=== PATIENT | female | born 1960 | race African-American/Black ===

== ENCOUNTER 2016-06-10 14:53 | Emergency (ER) | payer OTHER, MEDICARE ==
[~2016-06-10] VITALS: Ht 152.4 cm; Wt 100.0 kg
[~2016-06-10 14:53] MED LIST: ALBU2.5V5 NEB; ALPR0.5T6 PO; AMIO200T2 PO; AMLO10TA2 PO; ASPI325T4 PO; ASPI81TA44 PO; ATOR20TA PO; ATOR40TA59 PO; Aspirin PO; BUME2TAB PO; BUSP5TAB PO; CARV12.52 PO; CARV25TA2 PO; CELE200C PO; CLOP75TA PO; CLOP75TA27 PO; CYCL10TA2 PO; DIAZEPAM10 MG PO; DIGO125T PO; DILT120C97 PO; DILT180C90 PO; Doxycycline Hyclate PO; FLUT12AE IH; FLUT1DIS3 INH; FURO-68 PO; FURO40TA4 PO; FURO80TA3 PO; GABA-585 PO; HYDR-2163 PO; HYDR-2666 PO; HYDR-2672 PO; HYDR-2762 PO; HYDR-971 PO; HYDR25CA PO; INSU100C4 SQ; INSU100I13 SQ; INSU100I17; INSU100I17 SQ; INSU100I27 SQ; INSU100V8 SQ; IPRA3AMP NEB; Ibuprofen PO; LEVO500T38 PO; LISI40TA PO; MELO-150 PO; METO10TA81 PO; MUPI15CR TP; ONDA-35 PO; ONDA4TAB10 SL; ONDA4TAB7 PO; ONDA8TAB9 PO; PANT40TA3 PO; PARO20TA2 PO; PARO20TA55 PO; POTA20PA8 PO; POTA20TA4 PO; POTA20TA84 PO; PRED-220 PO; PRED20TA PO; PRED5TAB PO; PROM118S2 PO; Promethazine Hcl/Codeine PO; RAMI10CA PO; RIVA10TA PO; SODI45SP4 NS; SPIR25TA3 PO; TORS20TA PO; TORS20TA2 PO; VALIUM10 MG PO; VENTOLIN HFA18 GM IH; gabapentin PO
[2016-06-10] MEDS ORDERED: IPRATRPIUM/ALBUTEROL 0.5/2.5MG 3 ML NEBU. NEB ONE (15:30)
[2016-06-10 16:06] LABS: BASO # 0.1 x10^3/uL (0.0-0.2); BASO % 1 % (0-3); EOS % 0 % (0-3); HEMATOCRIT 38.7 % (36.0-47.0); HEMOGLOBIN 11.9 g/dL (12.0-15.5); LYMPH # 2.2 x10^3/uL (1.0-4.8); LYMPH % 24 % (24-48); MEAN CORPUSCULAR HEMOGLOBIN 23 pg (25-35); MEAN CORPUSCULAR HGB CONC 31 g/dL (31-37); MEAN CORPUSCULAR VOLUME 76 fL (79-100); MONO % 8 % (0-9); NEUT % 67 % (31-73); PLATELET COUNT 310 x10^3/uL (140-400); RED BLOOD COUNT 5.07 x10^6/uL (3.50-5.40); RED CELL DISTRIBUTION WIDTH 21.3 % (11.5-14.5)
--- NOTE | 2016-06-10 16:06 | RAD ---
Portable chest, 06/10/2016: History: Shortness of breath, smoker, hypertension Comparison is made to a study from 06/06/2016. The heart is enlarged. There are moderate persistent opacities in the right lower chest. This appears to be predominantly due to pleural fluid with mild underlying streaky atelectasis/infiltrate. The pleural fluid component appears to have increased while the right parahilar parenchymal opacities have decreased. No left lung infiltrate or pleural fluid is seen. IMPRESSION: 1. Cardiomegaly. 2. Increasing moderate-sized right pleural effusion with mild underlying right basilar atelectasis/infiltrate.
[2016-06-10 16:15] LABS: CREATININE 0.9 mg/dL (0.6-1.0)
[2016-06-10 16:16] LABS: INR 1.2 (0.8-1.1); PROTHROMBIN TIME PATIENT 14.7 SEC (11.7-14.0)
[2016-06-10 16:21] LABS: ALBUMIN 2.8 g/dL (3.4-5.0); ALBUMIN/GLOBULIN RATIO 0.6 (1.0-1.7); TOTAL BILIRUBIN 0.8 mg/dL (0.2-1.0); TOTAL PROTEIN 7.5 g/dL (6.4-8.2)
[2016-06-10 16:26] LABS: PLT ESTIMATE ADEQUATE (ADEQUATE)
[2016-06-10 16:27] LABS: ANISOCYTOSIS MOD; MICROCYTOSIS SLIGHT; OVALOCYTES OCC; SCHISTOCYTES OCC
[2016-06-10 16:46] VITALS: BP 124/79
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
--- NOTE | 2016-06-11 10:51 | EKG ---
[facility] [address] [place] [address] Test Date: 2016-06-10 Test Time: 15:14:30 Pat Name: TRUDI RUEDA Department: Room: Gender: F Cracking Still Operator: : 1960 Requested By: SOCORRO MORENO Order Number: [id number] Reading MD: Radha Brizuela Measurements Intervals [place] Rate: 71 P: 36 AK: 134 QRS: -32 QRSD: 88 T: 102 QT: 398 QTc: 437 Interpretive Statements SINUS RHYTHM LEFT ATRIAL ABNORMALITY ABNORMAL LEFT AXIS DEVIATION LEFT ANTERIOR FASCICULAR BLOCK QRS(T) CONTOUR ABNORMALITY CONSIDER ANTEROSEPTAL MYOCARDIAL DAMAGE T ABNORMALITY IN HIGH LATERAL LEADS Electronically Signed On 06-13-2016 0:09:37 CONVENTIONS ASSISTANT by Radha Brizuela
== END 2016-06-10 16:56 | disposition home or self-care (01) ==
LOC: ER 14:53
DX: J44.9 Chronic obstructive pulmonary disease, unspecified (principal); R51 Headache; E11.9 Type 2 diabetes mellitus without complications; I25.10 Atherosclerotic heart disease of native coronary artery without angina pectoris; I50.9 Heart failure, unspecified; J45.909 Unspecified asthma, uncomplicated; I11.0 Hypertensive heart disease with heart failure; D86.9 Sarcoidosis, unspecified; F12.10 Cannabis abuse, uncomplicated; Z98.61 Coronary angioplasty status; Z88.8 Allergy status to other drugs, medicaments and biological substances
CPT/HCPCS: 36415; 71010; 80053; 83880; 84484; 85007; 85027; 85610; 93005; 94640; 99285; J7620

== ENCOUNTER 2016-06-12 07:24 | Emergency (ER) | payer OTHER, MEDICARE ==
[~2016-06-12] VITALS: Ht 152.4 cm; Wt 99.8 kg
[~2016-06-12 07:24] MED LIST changes: -LIDOCAINE 1% / SOD BICARB 8.4% 20 ML VIAL. IJ ONE
[2016-06-12] MEDS ORDERED: IPRATRPIUM/ALBUTEROL 0.5/2.5MG 3 ML NEBU. ONE (07:42)
[2016-06-12] MEDS ORDERED: NITROGLYCERIN SUBLINGUAL 0.4 MG BOTTLE OF 25. SL PRN (07:45)
[2016-06-12] MEDS ORDERED: FENTANYL PF 100 MCG/2 ML VIAL. IV PRN (07:45)
--- NOTE | 2016-06-12 07:46 | EKG ---
[address] [place] [address] Test Date: 2016-06-12 Test Time: 07:37:35 Pat Name: TRUDI RUEDA Department: Patient ID: [id number] Room: Gender: F Pooling Operator: ALLYSON ER : 1960 Requested By: KENDY CHERRY Order Number: [id number] Reading MD: Davion Lerma Measurements Intervals [place] Rate: 92 P: 40 RI: 134 QRS: -37 QRSD: 90 T: 128 QT: 362 QTc: 453 Interpretive Statements SINUS RHYTHM LEFT ATRIAL ABNORMALITY ABNORMAL LEFT AXIS DEVIATION QRS(T) CONTOUR ABNORMALITY CONSIDER ANTEROSEPTAL MYOCARDIAL DAMAGE CONSISTENT WITH INFERIOR INFARCT PROBABLY OLD T ABNORMALITY IN HIGH LATERAL LEADS ABNORMAL ECG Electronically Signed On 06-12-2016 14:17:30 SOURCING COORDINATOR by Davion Lerma
--- NOTE | 2016-06-12 07:51 | ED.ADGEN ---
Past Medical History Past Medical History: Asthma, CHF, COPD, Diabetes-Type II, Hypertension, Lung Disease, Other Additional Past Medical Histor: SARCOIDOSIS OF LUNG Past Surgical History: Angioplasty, , Hysterectomy, Tonsillectomy Additional Past Surgical Histo: bladder sling,cardiac cath Alcohol Use: None Drug Use: Marijuana Adult General Chief Complaint Chief Complaint: SHORTNESS OF BREATH HPI HPI Patient is a 56 year old woman, history of CHF, COPD, sarcoidosis, oxygen dependent on 2 L at baseline, CAD, type 2 diabetes mellitus, substance abuse, hypertension, who presents the emergency department with a complaint of right- sided chest pain and shortness of breath. Patient states that she was at home, seated on her bed, parity breakfast when she began experiencing right-sided chest pain located below her right breast, she describes it as a stabbing sensation, worse with deep inspiration and with motion. Denies any injuries, states that she has had similar to previously for which she has been evaluated at [facility]. Patient is well-known to ED staff from multiple previous visits for similar complaints. Her breast trimmer is Dr. Kidd. She states that she's been experiencing "cold" symptoms for the past several days, with rhinorrhea, nasal congestion, and noted that she had a small nosebleed this morning, patient wears oxygen that is not humidified all times. She denies any recent travel or surgery, states that she is experiencing increased swelling in her abdomen, and has a same amount of swelling in her lower extremities as usual and sister with her CHF. She denies any fevers or chills, any weakness numbness or tingling, any injuries, states that she had mild nausea earlier this morning, which is currently resolved. She states that she ate some eggs and toast this morning, no abdominal pain, no vomiting or diarrhea , eating did not change her symptoms. Review of Systems Review of Systems Constitutional: Denies fever or chills. [] Eyes: Denies change in visual acuity. [] HENT: Denies nasal congestion or sore throat. [] Respiratory: Denies cough or shortness of breath. [] Cardiovascular: Denies chest pain or edema. [] GI: Denies abdominal pain, nausea, vomiting, bloody stools or diarrhea. [] : Denies dysuria. [] Musculoskeletal: Denies back pain or joint pain. [] Integument: Denies rash. [] Neurologic: Denies headache, focal weakness or sensory changes. [] Endocrine: Denies polyuria or polydipsia. [] Lymphatic: Denies swollen glands. [] Psychiatric: Denies depression or anxiety. [] Current Medications Current Medications Current Medications Medications (Trade) Dose Ordered Sig/Carli Start Time Stop Time Status Last Admin Dose Admin Albuterol/ Ipratropium (Duoneb) 3 ml 1X ONCE 06/12/16 08:00 06/12/16 08:01 DC 06/12/16 07:52 3 ML Aspirin (Children'S Aspirin) 324 mg 1X ONCE 06/12/16 09:15 06/12/16 09:17 DC 06/12/16 09:29 324 MG Fentanyl Citrate (Fentanyl 2ml Vial) 25 mcg PRN Q15MIN PRN 06/12/16 07:45 06/12/16 11:16 DC 06/12/16 09:31 25 MCG Nitroglycerin (Nitrostat) 0.4 mg PRN Q5MIN PRN 06/12/16 07:45 06/12/16 11:16 DC 06/12/16 08:41 0.4 MG Allergies Allergies Allergies Coded Allergies Type Severity Reaction Last Updated Verified adhesive Allergy Intermediate rash 09/18/15 Yes metformin Allergy Intermediate rash 04/15/16 Yes Physical Exam Physical Exam Constitutional: Well developed, well nourished, no acute distress, non-toxic appearance. [] Nasal cannula in place, oxygen saturation is 97% on 2 L nasal cannula is patient's baseline. HENT: Normocephalic, atraumatic, bilateral external ears normal, oropharynx moist, no oral exudates, patient with dried blood noted at the left Rendon, no active bleeding identified, turbinates are mildly swollen with clear rhinorrhea. Linn cannula in place. Eyes: PERRLA, EOMI, conjunctiva normal, no discharge. [] Neck: Normal range of motion, no tenderness, supple, no stridor. [] Cardiovascular:Heart rate regular rhythm, no murmur, S1, S2, rubs or gallops. [] Lungs & Thorax: Diminished breath sounds bilaterally with mild scattered wheezing, no rhonchi or rales. Patient with reproduce will chest wall tenderness across the right side of her chest, anterior portion, and below the breast, no crepitus or bony point tenderness. [] Abdomen: Bowel sounds normal, soft, obese, with edema noted across the lower aspect of the stomach, no rebound, rigidity, no tenderness, no masses, no pulsatile masses. [] Skin: Warm, dry, no erythema, no rash. [] Back: No tenderness, no CVA tenderness. [] Extremities: No tenderness, no cyanosis, no clubbing, ROM intact, 1+ pitting edema bilaterally, with chronic muscle wasting noted, negative Homans sign. [] Neurologic: Alert and oriented X 3, normal motor function, normal sensory function, no focal deficits noted. [] Psychologic: Affect normal, judgement normal, mood normal. [] Current Patient Data Vital Signs Vital Signs Date Time Temp Pulse Resp B/P Pulse Ox O2 Delivery O2 Flow Rate FiO2 06/12/16 09:31 20 94 Nasal Cannula 2.0 06/12/16 08:41 92 129/65 06/12/16 07:46 97.6 97.6 Lab Values Laboratory Tests Test 06/12/16 07:58 06/12/16 08:02 06/12/16 08:35 White Blood Count 8.5x10^3/uL (4.0-11.0) Red Blood Count 5.08x10^6/uL (3.50-5.40) Hemoglobin 11.9g/dL (12.0-15.5) L Hematocrit 38.5% (36.0-47.0) Mean Corpuscular Volume 76fL (79-100) L Mean Corpuscular Hemoglobin 23pg (25-35) L Mean Corpuscular Hemoglobin Concent 31g/dL (31-37) Red Cell Distribution Width 21.2% (11.5-14.5) H Platelet Count 338x10^3/uL (140-400) Neutrophils (%) (Auto) 70% (31-73) Lymphocytes (%) (Auto) 20% (24-48) L Monocytes (%) (Auto) 9% (0-9) Eosinophils (%) (Auto) 0% (0-3) Basophils (%) (Auto) 1% (0-3) Neutrophils # (Auto) 5.9x10^3uL (1.8-7.7) Lymphocytes # (Auto) 1.7x10^3/uL (1.0-4.8) Monocytes # (Auto) 0.8x10^3/uL (0.0-1.1) Eosinophils # (Auto) 0.0x10^3/uL (0.0-0.7) Basophils # (Auto) 0.1x10^3/uL (0.0-0.2) Platelet Estimate Pending Sodium Level 136mmol/L (136-145) Potassium Level 4.0mmol/L (3.5-5.1) Chloride Level 95mmol/L (98-107) L Carbon Dioxide Level 34mmol/L (21-32) H Anion Gap 7 (6-14) Blood Urea Nitrogen 18mg/dL (7-20) Creatinine 0.8mg/dL (0.6-1.0) Estimated GFR (Cockcroft-Gault) 90.4 BUN/Creatinine Ratio 23 (6-20) H Glucose Level 264mg/dL (70-99) H Calcium Level 9.5mg/dL (8.5-10.1) Total Bilirubin 1.0mg/dL (0.2-1.0) Aspartate Amino Transferase (AST) 22U/L (15-37) Alanine Aminotransferase (ALT) 19U/L (14-59) Alkaline Phosphatase 197U/L (46-116) H Troponin I Quantitative 0.023ng/mL (0.000-0.055) OR-Kwm-[id number]-Type Natriuretic Peptide 666pg/mL (0-124) H Total Protein 7.8g/dL (6.4-8.2) Albumin 3.0g/dL (3.4-5.0) L Albumin/Globulin Ratio 0.6 (1.0-1.7) L Lipase 95U/L (73-393) POC Troponin I 0.01ng/ml (<0.08) Urine Collection Type Unknown Urine Color Yellow Urine Clarity Clear Urine pH 7.5 Urine Specific [place] 1.015 Urine Protein Tracemg/dL (NEG-TRACE) Urine Glucose (UA) 100mg/dL (NEG) Urine Ketones (Stick) Negativemg/dL (NEG) Urine Blood Negative (NEG) Urine Nitrite Negative (NEG) Urine Bilirubin Negative (NEG) Urine Urobilinogen Dipstick 4.0mg/dL (0.2 mg/dL) Urine Leukocyte Esterase Negative (NEG) Urine RBC 1-2/HPF (0-2) Urine WBC Occ/HPF (0-4) Urine Squamous Epithelial Cells Few/LPF Urine Bacteria Few/HPF (0-FEW) Urine Opiates Screen Pos (NEG) Urine Methadone Screen Neg (NEG) Urine Barbiturates Neg (NEG) Urine Phencyclidine Screen Neg (NEG) Urine Amphetamine/Methamphetamine Neg (NEG) Urine Benzodiazepines Screen Neg (NEG) Urine Cocaine Screen Neg (NEG) Urine Cannabinoids Screen Pos (NEG) Urine Ethyl Alcohol Neg (NEG) Laboratory Tests 06/12/16 07:58 Laboratory Tests 06/12/16 07:58 EKG EKG EC: Sinus rhythm, heart rate 92 beats minute, left axis deviation with abnormalities noted in the anterior septal and inferior leads, with Q waves noted in leads 3 and aVF, abnormal ECG, with a QTC of 4 V3, [place] 134, QRS of 90, no ST elevations or depressions, no evidence of acute ST abnormalities. When compared to ECG from 05/09/2016, no significant changes identified. As interpreted by me. [] Radiology/Procedures Radiology/Procedures [] [facility] [address] [place] [address] IMAGING REPORT Signed PATIENT: TRUDI RUEDA ACCOUNT: [id number] : 1960 LOCATION: ER AGE: 56 SEX: F EXAM STATUS: PRE ER ORD. PHYSICIAN: KENDY CHERRY DO REASON: CP/SOB PROCEDURE: PORTABLE CHEST 1V Indication shortness of breath. A single view of the chest was obtained and is compared to an examination 2 days previously. There has been no significant change in the appearance of the chest. Cardiomegaly persists. Volume loss at the right lung base compatible with pleural fluid with associated atelectasis or pneumonia persists. IMPRESSION: No significant change. Persistent cardiomegaly. Volume loss in the right lung compatible with pleural fluid with associated atelectasis or pneumonia DICTATED and SIGNED BY: SERINA BUTLER MD DATE: 06/12/16 0806 CC: KENDY CHERRY DO; FRANCO ROMERO MD ~ Course & Med Decision Making Course & Med Decision Making Pertinent Labs and Imaging studies reviewed. (See chart for details) Review of records reveals the patient was admitted last week for similar complaints, and evaluated for right-sided chest pain by Dr. Kidd her breast trimmer, and was discharged home with supportive care and current medications. I did speak Dr. Kidd after reviewing patient's x-ray imaging and laboratory studies, patient appears to have some crease of the right-sided pleural effusion which is known, otherwise laboratory studies and ECG are unchanged. Dr. Kidd states that he has no further medications this time, and instruct the patient to continue her current home regimen. I did speak with Dr. Esquivel, of pulmonary critical care, who evaluated the patient's imaging in the emergency department with me, and agrees that there is some increase in the size of the pleural effusion, and with review of the CT which was obtained on 06/02/2016, that this is definitely a collection which would be amenable to thoracentesis. I did speak to the patient, she is agreeable with the plan for outpatient thoracentesis. Patient ambulated in the ED, oxygen saturation on her baseline 2 L remained stable, patient's laboratory studies otherwise are concerning as stated, and she is resting comfortably at this time. I spoke with the radiology scheduling department, they state that the patient can be discharged from the emergency department and immediately go for thoracentesis. Patient with coags with an INR of 1.22 days ago, although A studies are in line with her prior as stated. Patient is agreeable this plan, discharged in the ED and taken to thoracentesis for drainage and to follow-up with her primary care provider and pulmonary as stated. Dragon Disclaimer Dragon Disclaimer This electronic medical record was generated, in whole or in part, using a voice recognition dictation system. Departure Impression: Primary Impression: Pleural effusion on right Disposition: 01 HOME, SELF-CARE Condition: IMPROVED KENDY CHERRY DO Jun 12, 2016 07:51
[2016-06-12] MEDS ORDERED: IPRATRPIUM/ALBUTEROL 0.5/2.5MG 3 ML NEBU. NEB ONE (08:00)
[2016-06-12 08:09] LABS: BASO # 0.1 x10^3/uL (0.0-0.2); BASO % 1 % (0-3); EOS % 0 % (0-3); HEMATOCRIT 38.5 % (36.0-47.0); HEMOGLOBIN 11.9 g/dL (12.0-15.5); LYMPH # 1.7 x10^3/uL (1.0-4.8); LYMPH % 20 % (24-48); MEAN CORPUSCULAR HEMOGLOBIN 23 pg (25-35); MEAN CORPUSCULAR HGB CONC 31 g/dL (31-37); MEAN CORPUSCULAR VOLUME 76 fL (79-100); MONO % 9 % (0-9); NEUT % 70 % (31-73); PLATELET COUNT 338 x10^3/uL (140-400); RED BLOOD COUNT 5.08 x10^6/uL (3.50-5.40); RED CELL DISTRIBUTION WIDTH 21.2 % (11.5-14.5); WHITE BLOOD COUNT 8.5 x10^3/uL (4.0-11.0)
--- NOTE | 2016-06-12 08:11 | RAD ---
Indication shortness of breath. A single view of the chest was obtained and is compared to an examination 2 days previously. There has been no significant change in the appearance of the chest. Cardiomegaly persists. Volume loss at the right lung base compatible with pleural fluid with associated atelectasis or pneumonia persists. IMPRESSION: No significant change. Persistent cardiomegaly. Volume loss in the right lung compatible with pleural fluid with associated atelectasis or pneumonia
[2016-06-12 08:41] VITALS: BP 129/65
[2016-06-12 08:52] LABS: CALCIUM 9.5 mg/dL (8.5-10.1); CREATININE 0.8 mg/dL (0.6-1.0); GFR 90.4
--- NOTE | 2016-06-12 08:57 | ACF ---
Admission Forms Criteria HEART FAILURE: COMMON COMPLICATIONS Clinical Indications for Inpatient Care (Place 'X' for any and all applicable criteria): Ongoing inpatient care may be indicated for heart failure with ANY ONE of the following (1)(2)(3)(4)(5): [ ]I. Ongoing need for care for primary condition requiring frequent therapy adjustments because of changes in cardiac function (eg, drug dosage changes for drugs that are renally metabolized) [ ]II. New-onset heart failure [ ]III. Heart failure with decreased urine output not responsive to attempts to optimize volume status [ ]IV. Acute cardiac ischemia causing or associated with failure [X]V. Complications of heart failure, including ANY ONE of the following: [ ]a) Pericardial effusion [ ]b) Symptomatic pleural effusion [ ]c) O2 saturation <90% or PO2 < 60 mm Hg (8.0 kPa) on room air or require baseline supplemental O2 [X]d) Tachypnea [ ]e) Dyspnea [ ]f) Syncope [ ]g) Change in mental status [ ]h) Acute renal insufficiency that is severe (reduction of more than 50% in estimated glomerular filtration rate from baseline) or progressive reduction of more than 25% in estimated glomerular filtration rate from baseline, with creatinine continuing to rise) [ ]i) Hemodynamic instability [ ]j) Anasarca [ ]k) Clinically significant metabolic abnormalities due to heart failure (eg, new-onset metabolic acidosis) Extended stay beyond goal length of stay for primary condition may be needed until ALL of the following are present(1)(3): [ ]a) Stable and effective diuretic regimen established (or patient on stable dialysis regimen if in chronic renal failure) [ ]b) Breathing comfortably at rest [ ]c) Saturation of arterial oxygen greater than 90% or at acceptable baseline [ ]d) Pulmonary edema absent or improved [ ]e) Hemodynamic stability [ ]f) Volume status acceptable on oral medication [ ]g) Peripheral or sacral edema absent or improved [ ]h) Renal function stable and manageable at a lower level of care [ ]i) Complications (eg, pleural effusion) resolved or manageable at a lower level of care [ ]j) Patient or caregiver has received written discharge instructions or educational material addressing activity level, diet, discharge medications, follow-up appointment, weight monitoring, and what to do if symptoms worsen The original [facility] content created by [employer] has been revised. The portions of the content which have been revised are identified through the use of italic text or in bold, and [facility] has neither reviewed nor approved the modified material.All other unmodified content is copyright [facility]. Please see references footnoted in the original [facility] edition 2016 Admission Criteria Met?: Yes NESTOR DOVE Jun 12, 2016 08:57
[2016-06-12 09:00] LABS: ALBUMIN/GLOBULIN RATIO 0.6 (1.0-1.7); TOTAL PROTEIN 7.8 g/dL (6.4-8.2)
[2016-06-12] MEDS ORDERED: ASPIRIN 81 MG TAB.CHEW PO ONE (09:15)
[2016-06-12 09:29] LABS: BILIRUBIN,URINE NEGATIVE (NEG); GLUCOSE,URINE 100 mg/dL (NEG); NITRITE,URINE NEGATIVE (NEG); PH,URINE 7.5
[2016-06-12 09:48] LABS: BARBITURATES NEG (NEG); BENZODIAZEPINES NEG (NEG); CANNABINOIDS POS (NEG); COCAINE NEG (NEG); METHADONE NEG (NEG); OPIATES POS (NEG); PHENCYCLIDINE NEG (NEG)
[2016-06-12 09:49] LABS: BACTERIA,URINE FEW /HPF (0-FEW); ETHANOL, URINE NEG (NEG); SQUAMOUS EPITHELIAL CELL,UR FEW /LPF; WBC,URINE OCC /HPF (0-4)
[2016-06-12 09:50] LABS: PROTEIN,URINE TRACE mg/dL (NEG-TRACE)
[2016-06-12 12:23] LABS: PLT ESTIMATE ADEQUATE (ADEQUATE)
[2016-06-12 12:24] LABS: ANISOCYTOSIS MOD; HYPOCHROMIA SLIGHT; MICROCYTOSIS PRESENT; OVALOCYTES FEW; POLYCHROMASIA SLIGHT; SCHISTOCYTES OCC; TARGET CELLS FEW
== END 2016-06-12 11:16 | disposition home or self-care (01) ==
LOC: ER 07:24
DX: J90 Pleural effusion, not elsewhere classified (principal); I50.9 Heart failure, unspecified; J44.9 Chronic obstructive pulmonary disease, unspecified; J45.909 Unspecified asthma, uncomplicated; E11.9 Type 2 diabetes mellitus without complications; I10 Essential (primary) hypertension; I25.10 Atherosclerotic heart disease of native coronary artery without angina pectoris; D86.0 Sarcoidosis of lung; F12.10 Cannabis abuse, uncomplicated; Z95.1 Presence of aortocoronary bypass graft; Z99.81 Dependence on supplemental oxygen; Z88.8 Allergy status to other drugs, medicaments and biological substances; Z91.048 Other nonmedicinal substance allergy status
CPT/HCPCS: 36415; 71010; 80053; 81001; 83690; 83880; 84484; 85007; 85027; 93005; 94640; 96374; 99285; G0481; J3010; J7620

== ENCOUNTER → 2016-06-12 | Outpatient (CLI) | payer OTHER, MEDICARE ==
[~2016-06-12] MED LIST changes: +LIDOCAINE 1% / SOD BICARB 8.4% 20 ML VIAL. IJ ONE
[2016-06-12 08:41] VITALS: BP 129/65
--- NOTE | 2016-06-12 12:12 | PDOC ---
BRIEF OPERATIVE NOTE Pre-Op Diagnosis right pleural effusion Post-Op Diagnosis same Procedure Performed right thoracentesis Surgeon Mayank Anesthesia Type: Local Findings 1500 cc thin yellow fluid Complications no immediate MARY AMEZQUITA MD Jun 12, 2016 12:12
--- NOTE | 2016-06-12 12:15 | RAD ---
Ultrasound Guided Thoracentesis, right side Indication: 56-year-old with recurrent right pleural effusion, shortness of breath Sedation: Local anesthesia only Sterility: The procedure was performed in its entirety using appropriate elements of sterile technique. Technique and Findings: Following informed consent, the patient was prepped and draped in the usual sterile fashion. Ultrasound interrogation of the area of interest was performed revealing the presence of a pleural fluid collection. 1% Lidocaine was used to achieve local anesthesia over the area of interest. A small dermatotomy was made and a 5F [id number]-abtmcgyc catheter was advanced under ultrasound guidance into the pleural space [id number] cc's of thin yellow fluid was removed. The catheter was then removed and hemostasis was achieved with manual compression. Impression: US thoracentesis as described.
--- NOTE | 2016-06-12 13:08 | RAD ---
Indication post right sided thoracentesis. A single view of the chest was obtained at 1213 and is compared to an examination approximately 4 1/2 hours earlier. The examination is being obtained post right sided thoracentesis. There is less right pleural fluid compatible with the interval thoracentesis. Heart size is unchanged. No complication is seen associated with the thoracentesis and specifically no pneumothorax is apparent IMPRESSION: No evidence of complication post right-sided thoracentesis
--- NOTE | 2016-06-12 13:34 | RAD ---
Indication post right-sided thoracentesis. A single view of the chest was obtained at 1308 and is compared to an examination less than one hour earlier. In the interval there has been a right-sided thoracentesis. Heart size is unchanged. Pulmonary vasculature is similar. Some right pleural fluid persists. No complication is seen associated with the thoracentesis and specifically no pneumothorax is seen. IMPRESSION: No evidence of pneumothorax post right-sided thoracentesis
== END | disposition home or self-care (01) ==
LOC: INTRAD 11:28
PROVIDERS: ATTEND Emergency Medicine
DX: J90 Pleural effusion, not elsewhere classified (principal); J03.90 Acute tonsillitis, unspecified; I50.9 Heart failure, unspecified; I20.9 Angina pectoris, unspecified; I42.9 Cardiomyopathy, unspecified; I25.10 Atherosclerotic heart disease of native coronary artery without angina pectoris; Z95.1 Presence of aortocoronary bypass graft; E78.00 Pure hypercholesterolemia, unspecified; I10 Essential (primary) hypertension; J44.9 Chronic obstructive pulmonary disease, unspecified; J43.9 Emphysema, unspecified; J45.909 Unspecified asthma, uncomplicated; Z90.49 Acquired absence of other specified parts of digestive tract; E66.9 Obesity, unspecified; Z90.710 Acquired absence of both cervix and uterus; E11.9 Type 2 diabetes mellitus without complications; F41.9 Anxiety disorder, unspecified; F32.9 Major depressive disorder, single episode, unspecified; F17.200 Nicotine dependence, unspecified, uncomplicated
CPT/HCPCS: 32555; 71010

== ENCOUNTER 2016-07-21 17:04 | Inpatient (IN) | payer OTHER, MEDICARE ==
[~2016-07-21] VITALS: Ht 162.6 cm; Wt 104.3 kg
[~2016-07-21 17:04] MED LIST changes: -PARO20TA2 PO; +PARO20TA3 PO
[2016-07-21] MEDS ORDERED: IV NORMAL SALINE 500ML BAG 500 ML IV ONE (17:45)
[2016-07-21 17:50] LABS: BASO # 0.1 x10^3/uL (0.0-0.2); BASO % 1 % (0-3); EOS % 0 % (0-3); HEMATOCRIT 29.1 % (36.0-47.0); LYMPH # 1.2 x10^3/uL (1.0-4.8); LYMPH % 17 % (24-48); MEAN CORPUSCULAR HEMOGLOBIN 24 pg (25-35); MEAN CORPUSCULAR HGB CONC 31 g/dL (31-37); MEAN CORPUSCULAR VOLUME 78 fL (79-100); MONO % 15 % (0-9); NEUT % 67 % (31-73); PLATELET COUNT 288 x10^3/uL (140-400); RED BLOOD COUNT 3.73 x10^6/uL (3.50-5.40); RED CELL DISTRIBUTION WIDTH 20.1 % (11.5-14.5); WHITE BLOOD COUNT 7.2 x10^3/uL (4.0-11.0)
[2016-07-21 17:55] LABS: INR 1.2 (0.8-1.1); PROTHROMBIN TIME PATIENT 14.9 SEC (11.7-14.0)
[2016-07-21 18:06] LABS: CALCIUM 9.3 mg/dL (8.5-10.1); CREATININE 1.5 mg/dL (0.6-1.0); GFR 43.8; POTASSIUM 4.5 mmol/L (3.5-5.1)
[2016-07-21 18:11] LABS: ALBUMIN 2.8 g/dL (3.4-5.0); ALBUMIN/GLOBULIN RATIO 0.6 (1.0-1.7); TOTAL BILIRUBIN 1.3 mg/dL (0.2-1.0); TOTAL PROTEIN 7.6 g/dL (6.4-8.2)
--- NOTE | 2016-07-21 18:42 | EKG ---
[facility] [address] [place] [address] Test Date: 2016-07-21 Test Time: 18:36:19 Pat Name: TRUDI RUEDA Department: Room: Gender: F Embroidery Specialist: : [id number] Requested By: BROOKLYNN BLANTON Order Number: [id number] Reading MD: Quinten Steinberg Measurements Intervals [place] Rate: 84 P: AL: QRS: -31 QRSD: 86 T: 136 QT: 366 QTc: 436 Interpretive Statements ATRIAL FIBRILLATION. INFERIOR Q WAVES, POSSIBLE PREVIOUS INFARCT Electronically Signed On 07-28-2016 10:43:53 CONFERENCE PLANNER by Quinten Steinberg
[2016-07-21] MEDS ORDERED: LORAZEPAM 2 MG/ML VIAL ONE (19:13)
[2016-07-21] MEDS ORDERED: ONDANSETRON PF 4 MG/2 ML VIAL. IV PRN (19:15)
[2016-07-21] MEDS ORDERED: LORAZEPAM 2 MG/ML VIAL IV ONE ×2 (19:15→23:55)
[2016-07-21] MEDS ORDERED: ACETAMINOPHEN 325 MG TABLET. PO PRN (19:15)
[2016-07-21 19:26] LABS: ANISOCYTOSIS MOD; HYPOCHROMIA SLIGHT; PLT ESTIMATE ADEQUATE (ADEQUATE); POIKILOCYTOSIS SLIGHT; POLYCHROMASIA SLIGHT; TEAR DROP CELLS FEW
[2016-07-21 19:35] LABS: BILIRUBIN,URINE SMALL (NEG); GLUCOSE,URINE NEGATIVE (NEG); NITRITE,URINE NEGATIVE (NEG); PH,URINE 5.5; PROTEIN,URINE NEGATIVE (NEG-TRACE)
[2016-07-21 19:48] LABS: BACTERIA,URINE 0 /HPF (0-FEW); RBC,URINE 0 /HPF (0-2); SQUAMOUS EPITHELIAL CELL,UR FEW /LPF
[2016-07-21 19:49] LABS: YEAST,URINE PRESENT /HPF
[2016-07-21 19:59] LABS: BARBITURATES NEG (NEG); BENZODIAZEPINES POS (NEG); CANNABINOIDS POS (NEG); COCAINE NEG (NEG); ETHANOL, URINE NEG (NEG); METHADONE NEG (NEG); OPIATES POS (NEG); PHENCYCLIDINE NEG (NEG)
[2016-07-21] MEDS: FENTANYL PF 100 MCG/2 ML VIAL. IV PRN ×3 (20:08→23:26)
[2016-07-21] MEDS: IPRATRPIUM/ALBUTEROL 0.5/2.5MG 3 ML NEBU. NEB SCH (21:14)
--- NOTE | 2016-07-21 22:03 | PHYS DOC ---
Past Medical History Past Medical History: Asthma, CHF, COPD, Diabetes-Type II, Hypertension, Lung Disease, Other Additional Past Medical Histor: SARCOIDOSIS OF LUNG Past Surgical History: Angioplasty, , Hysterectomy, Tonsillectomy Additional Past Surgical Histo: bladder sling, cardiac cath Alcohol Use: None Drug Use: Marijuana Social History Narrative: reports last use 2 months ago Adult General Chief Complaint Chief Complaint: ANXIETY/PANIC ATTACK HPI HPI 56-year-old female well-known to our emergency department with multiple complaints. She states she's had a lot of arm twitching as of late. She denies taking any new medication. She also states that she is having a hard time breathing when she lays flat symptoms seemed to get worse. She also claims that she is had a lot more anxiety over the last 24 hours then usual she denies any fever chills sweats. She has had a cough.] Review of Systems Review of Systems Constitutional: Denies fever or chills [] Eyes: Denies change in visual acuity, redness, or eye pain [] HENT: Denies nasal congestion or sore throat [] Respiratory: Denies cough or shortness of breath [] Cardiovascular: No additional information not addressed in HPI [] GI: Denies abdominal pain, nausea, vomiting, bloody stools or diarrhea [] : Denies dysuria or hematuria [] Musculoskeletal: Myoclonic twitching [] Integument: Denies rash or skin lesions [] Neurologic: Denies headache, focal weakness or sensory changes [] Endocrine: Denies polyuria or polydipsia [] Current Medications Current Medications Current Medications Medications (Trade) Dose Ordered Sig/[facility] Start Time Stop Time Status Last Admin Dose Admin Acetaminophen (Tylenol) 650 mg PRN Q4HRS PRN 07/21/16 19:15 07/22/16 19:14 DC Fentanyl Citrate (Fentanyl 2ml Vial) 50 mcg PRN Q1HR PRN 07/21/16 19:15 07/22/16 19:14 DC 07/22/16 19:08 50 MCG Lorazepam (Ativan) 2 mg 1X ONCE 07/21/16 19:15 07/21/16 19:17 DC 07/21/16 19:19 2 MG Ondansetron HCl (Zofran) 4 mg PRN Q8HRS PRN 07/21/16 19:15 07/22/16 19:14 DC Sodium Chloride (Iv Sodium Chloride 0.9% 500ml Bag) 500 ml @ 0 mls/hr 1X ONCE 07/21/16 17:45 07/21/16 17:46 DC 07/21/16 18:32 500 MLS/HR Allergies Allergies Allergies Coded Allergies Type Severity Reaction Last Updated Verified adhesive Allergy Intermediate rash 09/18/15 Yes metformin Allergy Intermediate rash 04/15/16 Yes Physical Exam Physical Exam Constitutional: Well developed, well nourished, no acute distress, non-toxic appearance. [] HENT: Normocephalic, atraumatic, bilateral external ears normal, oropharynx moist, no oral exudates, nose normal. [] Eyes: PERRLA, EOMI, conjunctiva normal, no discharge. [] Neck: Normal range of motion, no tenderness, supple, no stridor. [] Cardiovascular:Heart rate regular rhythm, no murmur [] Lungs & Thorax: Bilateral breath sounds clear to auscultation [] Abdomen: Bowel sounds normal, soft, no tenderness, no masses, no pulsatile masses. [] Skin: Warm, dry, no erythema, no rash. [] Back: No tenderness, no CVA tenderness. [] Extremities: No tenderness, no cyanosis, no clubbing, ROM intact, no edema. [] Neurologic: Alert and oriented X 3, normal motor function, normal sensory function, no focal deficits noted. [] Psychologic: Affect normal, judgement normal, mood normal. [] Current Patient Data Vital Signs Vital Signs Date Time Temp Pulse Resp B/P Pulse Ox O2 Delivery O2 Flow Rate FiO2 07/21/16 19:20 84 26 148/67 98 Nasal Cannula 3 07/21/16 17:04 98.6 98.6 Lab Values Laboratory Tests Test 07/21/16 17:30 07/21/16 19:20 White Blood Count 7.2x10^3/uL (4.0-11.0) Red Blood Count 3.73x10^6/uL (3.50-5.40) Hemoglobin 9.0g/dL (12.0-15.5) L Hematocrit 29.1% (36.0-47.0) L Mean Corpuscular Volume 78fL (79-100) L Mean Corpuscular Hemoglobin 24pg (25-35) L Mean Corpuscular Hemoglobin Concent 31g/dL (31-37) Red Cell Distribution Width 20.1% (11.5-14.5) H Platelet Count 288x10^3/uL (140-400) Neutrophils (%) (Auto) 67% (31-73) Lymphocytes (%) (Auto) 17% (24-48) L Monocytes (%) (Auto) 15% (0-9) H Eosinophils (%) (Auto) 0% (0-3) Basophils (%) (Auto) 1% (0-3) Neutrophils # (Auto) 4.9x10^3uL (1.8-7.7) Lymphocytes # (Auto) 1.2x10^3/uL (1.0-4.8) Monocytes # (Auto) 1.1x10^3/uL (0.0-1.1) Eosinophils # (Auto) 0.0x10^3/uL (0.0-0.7) Basophils # (Auto) 0.1x10^3/uL (0.0-0.2) Platelet Estimate Adequate (ADEQUATE) Polychromasia Slight Hypochromasia Slight Poikilocytosis Slight Anisocytosis Mod Tear Drop Cells Few Prothrombin Time 14.9SEC (11.7-14.0) H Prothrombin Time INR 1.2 (0.8-1.1) H Sodium Level 131mmol/L (136-145) L Potassium Level 4.5mmol/L (3.5-5.1) Chloride Level 91mmol/L (98-107) L Carbon Dioxide Level 35mmol/L (21-32) H Anion Gap 5 (6-14) L Blood Urea Nitrogen 50mg/dL (7-20) H Creatinine 1.5mg/dL (0.6-1.0) H Estimated GFR (Cockcroft-Gault) 43.8 BUN/Creatinine Ratio 33 (6-20) H Glucose Level 121mg/dL (70-99) H Calcium Level 9.3mg/dL (8.5-10.1) Total Bilirubin 1.3mg/dL (0.2-1.0) H Aspartate Amino Transferase (AST) 29U/L (15-37) Alanine Aminotransferase (ALT) 21U/L (14-59) Alkaline Phosphatase 169U/L (46-116) H Troponin I Quantitative 0.018ng/mL (0.000-0.055) IB-Wpw-N-Type Natriuretic Peptide 744pg/mL (0-124) H Total Protein 7.6g/dL (6.4-8.2) Albumin 2.8g/dL (3.4-5.0) L Albumin/Globulin Ratio 0.6 (1.0-1.7) L Salicylates Level < 2.8mg/dL (2.8-20.0) L Salicylate Last Dose Date Unknown Salicylate Last Dose Time Unknown Acetaminophen Level < 2mcg/ml (10-30) L Acetaminophen Last Dose Date Unknown Acetaminophen Last Dose Time Unknown Urine Collection Type U cath Urine Color Candace Urine Clarity Clear Urine pH 5.5 Urine Specific [place] 1.015 Urine Protein Negativemg/dL (NEG-TRACE) Urine Glucose (UA) Negativemg/dL (NEG) Urine Ketones (Stick) Negativemg/dL (NEG) Urine Blood Negative (NEG) Urine Nitrite Negative (NEG) Urine Bilirubin Small (NEG) Urine Urobilinogen Dipstick 2.0mg/dL (0.2 mg/dL) Urine Leukocyte Esterase Negative (NEG) Urine RBC 0/HPF (0-2) Urine WBC 1-4/HPF (0-4) Urine Squamous Epithelial Cells Few/LPF Urine Amorphous Sediment Present/HPF Urine Bacteria 0/HPF (0-FEW) Urine Hyaline Casts Moderate/HPF Urine Mucus Marked/LPF Urine Yeast Present/HPF Urine Opiates Screen Pos (NEG) Urine Methadone Screen Neg (NEG) Urine Barbiturates Neg (NEG) Urine Phencyclidine Screen Neg (NEG) Urine Amphetamine/Methamphetamine Neg (NEG) Urine Benzodiazepines Screen Pos (NEG) Urine Cocaine Screen Neg (NEG) Urine Cannabinoids Screen Pos (NEG) Urine Ethyl Alcohol Neg (NEG) Laboratory Tests 07/21/16 17:30 Laboratory Tests 07/21/16 17:30 EKG EKG [EKG: Normal sinus rhythm rate of [address]-T changes] Radiology/Procedures Radiology/Procedures [] Impressions: Chest x-ray: Negative exam as interpreted by me Course & Med Decision Making Course & Med Decision Making Pertinent Labs and Imaging studies reviewed. (See chart for details) [ED course: Evaluation reveals 56-year-old female well-known to me secondary to multiple visits to the emergency department who was not acting herself today. She'll a lot of myoclonic jerking and really could not get settled down. I spoke with Dr. Hernandez who agreed to accept the patient for admission for close observation.] Tiffanie Disclaimer Dragon Disclaimer This electronic medical record was generated, in whole or in part, using a voice recognition dictation system. Departure Departure Impression: Primary Impression: Altered mental status Additional Impression: Myoclonic jerking Disposition: ADMITTED INPATIENT Condition: STABLE Problem Qualifiers Primary Impression: Altered mental status Altered mental status type: unspecified Qualified Code: R41.82 - Altered mental status, unspecified BROOKLYNN BLANTON DO Jul 21, 2016 22:03
[2016-07-22 01:38] VITALS: BP 106/67
[2016-07-22] MEDS ORDERED: BREO ELLIPTA 11 EACH IH (01:56)
[2016-07-22] MEDS ORDERED: ONDA4TAB12 PO (01:56)
[2016-07-22] MEDS ORDERED: LISI2.5T PO (01:56)
[2016-07-22] MEDS ORDERED: CARV6.252 PO (01:56)
[2016-07-22] MEDS: FENTANYL PF 100 MCG/2 ML VIAL. IV PRN ×2 (03:26→19:08)
[2016-07-22 06:55] LABS: BASO # 0.1 x10^3/uL (0.0-0.2); BASO % 1 % (0-3); EOS % 0 % (0-3); HEMATOCRIT 30.8 % (36.0-47.0); HEMOGLOBIN 9.2 g/dL (12.0-15.5); LYMPH # 0.7 x10^3/uL (1.0-4.8); LYMPH % 5 % (24-48); MEAN CORPUSCULAR HEMOGLOBIN 24 pg (25-35); MEAN CORPUSCULAR HGB CONC 30 g/dL (31-37); MEAN CORPUSCULAR VOLUME 79 fL (79-100); MONO % 12 % (0-9); NEUT % 82 % (31-73); PLATELET COUNT 287 x10^3/uL (140-400); RED BLOOD COUNT 3.89 x10^6/uL (3.50-5.40); RED CELL DISTRIBUTION WIDTH 19.9 % (11.5-14.5); WHITE BLOOD COUNT 13.5 x10^3/uL (4.0-11.0)
[2016-07-22 07:22] LABS: ALBUMIN 3.2 g/dL (3.4-5.0); ALBUMIN/GLOBULIN RATIO 0.7 (1.0-1.7); CALCIUM 9.5 mg/dL (8.5-10.1); CREATININE 1.6 mg/dL (0.6-1.0); GFR 40.6; POTASSIUM 5.4 mmol/L (3.5-5.1); TOTAL PROTEIN 7.5 g/dL (6.4-8.2)
[2016-07-22] MEDS: IPRATRPIUM/ALBUTEROL 0.5/2.5MG 3 ML NEBU. NEB SCH ×4 (07:42→19:54)
[2016-07-22] MEDS ORDERED: ALPRAZOLAM 0.5 MG TABLET PO PRN (08:30)
[2016-07-22] MEDS ORDERED: HYDROCODONE/APAP 7.5/325MG TABLET. PO PRN (08:30)
[2016-07-22] MEDS ORDERED: SODIUM CHLORIDE 0.65% NASAL SPRAY 45ML BOTTLE. NS PRN (08:30)
[2016-07-22] MEDS ORDERED: NON FORMULARY ITEM (Albuterol Sulfate (Ventolin Hfa Inhaler) 2 PUFF) IH SCH (08:30)
[2016-07-22] MEDS ORDERED: ONDANSETRON ODT 4 MG TAB.RAPDIS PO PRN (08:30)
--- NOTE | 2016-07-22 08:35 | RAD ---
Portable chest, 07/21/2016: History: Shortness of breath Comparison is made to a study from 06/24/2016. The left PICC has been removed. The heart is enlarged. There is calcific plaquing of the aorta. There is a moderate ongoing right basilar opacity suggesting pleural fluid and underlying atelectasis. The left chest is clear. IMPRESSION: 1. Cardiomegaly. 2. Ongoing or recurrent moderate-sized right pleural effusion with moderate underlying atelectasis/infiltrate.
[2016-07-22] MEDS ORDERED: FUROSEMIDE 40 MG/4 ML VIAL IVP ONE (08:45)
[2016-07-22] MEDS: BUDESONIDE 0.5 MG/2 ML NEBU NEB SCH ×2 (08:45→19:54)
[2016-07-22] MEDS: INSULIN ASPART 300 UNITS/3 ML INSULN.PEN SQ SCH ×3 (09:00→18:33)
[2016-07-22] MEDS ORDERED: NON FORMULARY ITEM (Fluticasone/Vilanterol (Breo Ellipta 100-25 Mcg Inh) 1 PUFF) IH SCH (09:00)
[2016-07-22] MEDS ORDERED: SPIRONOLACTONE 25 MG TABLET PO SCH (09:00)
[2016-07-22] MEDS: CLOZAPINE 100 MG TABLET PO SCH (09:00)
[2016-07-22] MEDS: DILTIAZEM HCL 180 MG CAP.ER.24H PO SCH (09:00)
[2016-07-22] MEDS: LISINOPRIL 2.5 MG TABLET PO SCH (10:04)
[2016-07-22] MEDS: BUMETANIDE 1 MG TABLET PO SCH ×2 (10:05→18:25)
[2016-07-22] MEDS: CARVEDILOL 6.25 MG TABLET PO SCH ×2 (10:05→18:25)
[2016-07-22] MEDS: CLOPIDOGREL BISULFATE 75 MG TABLET PO SCH (10:05)
[2016-07-22] MEDS: ASPIRIN 81 MG TAB.CHEW PO SCH (10:06)
[2016-07-22] MEDS: AMLODIPINE BESYLATE 10 MG TABLET PO SCH ×2 (10:06→21:00)
[2016-07-22 11:00] VITALS: BP 114/70
[2016-07-22] MEDS ORDERED: LORAZEPAM 2 MG/ML VIAL IV ONE ×2 (12:00→14:30)
[2016-07-22] MEDS ORDERED: CARVEDILOL 12.5 MG TABLET PO SCH (17:00)
[2016-07-22 18:30] LABS: HCO3 ABG 26 mmol/L (21-28); PCO2 ABG 44 mmHg (35-46); PH ABG 7.39 (7.35-7.45); PO2 ABG 57 mmHg (75-108); SAT O2 ABG 87 % (92-99)
[2016-07-22 18:32] LABS: FIO2 ABG 28
[2016-07-22 19:00] VITALS: BP 102/59
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
[2016-07-22] MEDS: ATORVASTATIN CALCIUM 20 MG TABLET PO SCH (21:00)
[2016-07-22] MEDS: INSULIN DETEMIR 300 UNITS/3 ML INSULN.PEN. SQ SCH (21:13)
--- NOTE | 2016-07-22 22:04 | ACF ---
Admission Forms Criteria MENTAL STATUS CHANGE Clinical Indications for Inpatient Care (Place 'X' for any and all applicable criteria): Ongoing inpatient care may be needed for ANY ONE of the following(1)(2)(3)(5)(6) : [X]I. Suspected serious etiology (eg, medical disorder, EDGE STAINER MACHINE event) of mental status change [ ]II. Danger to self or others not manageable at lower level of care [ ]III. Grave disability (eg, inability to perform self care necessary at lower level of care) [ ]IV. Agitation or inappropriate behavior interfering with care for primary condition (eg, attempting to discontinue lines or drains prematurely, unable to cooperate with respiratory care) [ ]V. Delirium [A] [D][E] as described by ANY ONE of the following(26): [ ]a) Delirium due to alcohol or sedative [F] withdrawal [ ]b) Delirium of uncertain etiology that has not responded to appropriate empiric treatment [ ]c) Delirium that prevents performance of a life-sustaining function (eg, feeding or hydrating oneself) [ ]. General contraindications and/or Inappropriate clinical situations for Observational Care in patients with Mental Status Change, when ANY ONE of the following is required: [ ]a) Prediction of prolongation of LOS based on ANY ONE of the following may be considered as a contraindication for observational care 2, 3, 4, 5, 6, 7, 8, 9, 10, 11 [ ]i) Age > 65 yrs. [ ]ii) Patient arriving by ambulance [ ]iii) Patient with high acuity [ ]iv) Patient requiring vital sign monitoring [ ]v) Patient on IV medication [ ]b) Systolic blood pressures 180mmHg 3,12 [ ]c) Patient with altered mental status including delirium and other alteration of consciousness, (3) [ ]d) Patient whose discharge disposition will be to a fdc home or rehabilitation home should not be managed in Emergency Department Observation Unit. CMS rule requires 3 days hospital stay before such placement.3,13 [ ]e) Patient with failure to thrive due to broad array of etiologies 3,16,17 [ ]f) Inability to ambulate 3,14 Extended stay beyond goal length of stay for the primary condition may be needed until ALL of the following are present(3)(5): [ ]a) Underlying medical etiology of mental status change is absent, or has been established and adequately treated [ ]b) Danger to self or others is absent or manageable at lower level of care. [ ]c) Behavior crisis management, including physical or chemical restraints, is not required or available at lower level of car [ ]d) Substance or alcohol withdrawal is absent or manageable at lower level of care. [ ]e) Behavioral symptoms (eg, agitation, somnolence, inappropriate behavior) are absent, or are manageable at lower level of care. The original [facility] content created by [facility] has been revised. The portions of the content which have been revised are identified through the use of italic text or in bold, and [facility] has neither reviewed nor approved the modified material. All other unmodified content is copyright [facility]. Please see references footnoted in the original [facility] edition 2016 Admission Criteria Met?: Yes NADEEN JONES Jul 22, 2016 22:04
[2016-07-22 23:15] VITALS: BP 94/60
[2016-07-23 02:15] VITALS: BP 98/61
[2016-07-23] MEDS ORDERED: DIPHENHYDRAMINE HCL 25 MG CAPSULE PO PRN (03:15)
[2016-07-23 04:32] LABS: BASO % 0 % (0-3); EOS % 0 % (0-3); HEMATOCRIT 31.3 % (36.0-47.0); HEMOGLOBIN 9.5 g/dL (12.0-15.5); LYMPH # 0.8 x10^3/uL (1.0-4.8); LYMPH % 9 % (24-48); MEAN CORPUSCULAR HEMOGLOBIN 24 pg (25-35); MEAN CORPUSCULAR HGB CONC 31 g/dL (31-37); MEAN CORPUSCULAR VOLUME 78 fL (79-100); MONO % 8 % (0-9); NEUT % 83 % (31-73); PLATELET COUNT 308 x10^3/uL (140-400); RED BLOOD COUNT 3.99 x10^6/uL (3.50-5.40); RED CELL DISTRIBUTION WIDTH 20.1 % (11.5-14.5); WHITE BLOOD COUNT 8.9 x10^3/uL (4.0-11.0)
[2016-07-23 04:59] LABS: CALCIUM 9.4 mg/dL (8.5-10.1); CREATININE 1.8 mg/dL (0.6-1.0); GFR 35.5; POTASSIUM 4.6 mmol/L (3.5-5.1)
[2016-07-23 07:00] VITALS: BP 93/52
[2016-07-23] MEDS: IPRATRPIUM/ALBUTEROL 0.5/2.5MG 3 ML NEBU. NEB SCH ×4 (07:10→19:40)
[2016-07-23] MEDS: INSULIN ASPART 300 UNITS/3 ML INSULN.PEN SQ SCH ×3 (07:30→16:30)
[2016-07-23] MEDS: CARVEDILOL 6.25 MG TABLET PO SCH ×2 (08:00→16:06)
[2016-07-23] MEDS: BUDESONIDE 0.5 MG/2 ML NEBU NEB SCH ×3 (08:00→19:40)
[2016-07-23] MEDS: CLOPIDOGREL BISULFATE 75 MG TABLET PO SCH (08:00)
[2016-07-23] MEDS: ASPIRIN 81 MG TAB.CHEW PO SCH (08:00)
[2016-07-23] MEDS: CLOZAPINE 100 MG TABLET PO SCH (08:41)
[2016-07-23] MEDS: DILTIAZEM HCL 180 MG CAP.ER.24H PO SCH (08:41)
[2016-07-23] MEDS: AMLODIPINE BESYLATE 10 MG TABLET PO SCH ×2 (08:41→19:54)
[2016-07-23] MEDS: LISINOPRIL 2.5 MG TABLET PO SCH (08:41)
[2016-07-23] MEDS: BUMETANIDE 1 MG TABLET PO SCH ×2 (08:41→16:00)
[2016-07-23 11:00] VITALS: BP 94/48
--- NOTE | 2016-07-23 14:43 | PDOC2 ---
CONSULT Date of Consult Date of Consult DATE: 07/22/16 TIME: 08:00 Reason for Consult Reason for Consult: CHF Referring Physician Referring Physician: Dr Serra Identification/Chief Complaint Chief Complaint Confusion Source Source: Unable to obtain due to (AMS) History of Present Illness Reason for Visit: Unable to obtain history due to altered mental status at this time. Pt is well known to me from previous hospitalizations. Pt has a cardiomyopathy with chronic CHF secondary to systolic dysfunction. Pt is noncompliant and is progressively deteriorating. Per chart review, pt was recently discharged from [facility] on 07/19/16 for right-sided pleural effusion and acute on chronic CHF s/p thoracentesis and a course of abx for community acquired pneumonia. Pt presents to to [facility] with AMS. Past Medical History Cardiovascular: CAD, CHF, HTN, Hyperlipidemia Pulmonary: Asthma, Bronchitis, COPD, Pneumonia, Other CENTRAL NERVOUS SYSTEM: Periperal neuropathy GI: GERD, Hemorrhoids Heme/Onc: No pertinent hx Hepatobiliary: No pertinent hx Psych: Anxiety, Depression Musculoskeletal: low back pain Rheumatologic: Other Infectious disease: No pertinent hx Renal/: No pertinent hx Endocrine: Diabetes Past Surgical History Past Surgical History: Cholecystectomy, , Tonsillectomy, Hysterectomy , Other Family History Family History: Cancer, Diabetes, Hypertension, Other Social History ALCOHOL: none Drugs: Cocaine, Marijuana Lives: Alone Current Problem List Problem List Problems Medical Problems: (1) Altered mental status Status: Acute (2) Myoclonic jerking Status: Acute Current Medications Current Medications Current Medications Sodium Chloride (Iv Sodium Chloride 0.9% 500ml Bag) 500 ml @ 0 mls/hr 1X ONCE IV Last administered on 07/21/16 18:32; Start 07/21/16 at 17:45; Stop at 17:46; Status DC Lorazepam (Ativan) 2 mg STK-MED ONCE .ROUTE ; Start 07/21/16 at 19:13; Stop at 19:14; Status DC Ondansetron HCl (Zofran) 4 mg PRN Q8HRS PRN IV NAUSEA/VOMITING; Start 07/21/16 at 19:15; Stop 07/22/16 at 19:14; Status DC Fentanyl Citrate (Fentanyl 2ml Vial) 50 mcg PRN Q1HR PRN IV PAIN Last administered on 07/22/16 19:08; Start 07/21/16 at 19:15; Stop 07/22/16 at 19:14 ; Status DC Acetaminophen (Tylenol) 650 mg PRN Q4HRS PRN PO FEVER; Start 07/21/16 at 19:15 ; Stop 07/22/16 at 19:14; Status DC Albuterol/ Ipratropium (Duoneb) 3 ml RTQID NEB Last administered on 07/22/16 07:42; Start 07/21/16 at 20:00; Stop 07/22/16 at 08:40; Status DC Lorazepam (Ativan) 2 mg 1X ONCE IV Last administered on 07/21/16 19:19; Start 07/21/16 at 19:15; Stop 07/21/16 at 19:17; Status DC Lorazepam (Ativan) 2 mg 1X ONCE IV ; Start 07/21/16 at 23:55; Stop 07/21/16 at 23:56; Status DC Albuterol Sulfate (Ventolin Neb Soln) 2.5 mg PRN Q4HRS PRN NEB SHORTNESS OF BREATH; Start 07/22/16 at 08:30 Alprazolam (Xanax) 0.5 mg PRN BID PRN PO ANXIETY / AGITATION; Start 07/22/16 at 08:30 Amlodipine Besylate (Norvasc) 10 mg BID PO Last administered on 07/22/16 10:06 ; Start 07/22/16 at 09:00 Aspirin (Children'S Aspirin) 81 mg DAILYWBKFT PO Last administered on 10:06; Start 07/22/16 at 09:00 Atorvastatin Calcium (Lipitor) 20 mg HS PO ; Start 07/22/16 at 21:00 Carvedilol (Coreg) 6.25 mg BIDWMEALS PO Last administered on 07/22/16 18:25; Start 07/22/16 at 09:00 Carvedilol (Coreg) 12.5 mg BIDWMEALS PO ; Start 07/22/16 at 17:00; Status UNV Clopidogrel Bisulfate (Plavix) 75 mg DAILYWBKFT PO Last administered on 10:05; Start 07/22/16 at 09:00 Diltiazem HCl (Cardizem 24hr Cd) 180 mg DAILY PO ; Start 07/22/16 at 09:00 Acetaminophen/ Hydrocodone Bitart (Lortab 7.5/325) 1 tab PRN TID PRN PO PAIN Last administered on 07/23/16 06:19; Start 07/22/16 at 08:30 Insulin Aspart (Novolog) 15 units TIDAC SQ Last administered on 07/22/16 18:33 ; Start 07/22/16 at 09:00 Insulin Detemir (Levemir) 45 units QHS SQ ; Start 07/22/16 at 21:00 Albuterol/ Ipratropium (Duoneb) 3 ml RTQID NEB Last administered on 07/23/16 11 :42; Start 07/22/16 at 12:00 Lisinopril (Prinivil) 2.5 mg DAILY PO Last administered on 07/22/16 10:04; Start 07/22/16 at 09:00 Ondansetron HCl (Zofran Odt) 4 mg PRN Q8HRS PRN PO NAUSEA/VOMITING; Start 07/22 at 08:30 Sodium Chloride (Saline Mist Nasal) 1 chad PRN Q1HR PRN NS NASAL CONGESTION; Start 07/22/16 at 08:30 Spironolactone (Aldactone) 25 mg DAILY PO ; Start 07/22/16 at 09:00; Stop at 09:00; Status DC Non-Formulary Medication 2 puff PRN Q4-6HRS IH ; Start 07/22/16 at 08:30; Status UNV Bumetanide (Bumex) 2 mg BID94 PO Last administered on 07/22/16 18:25; Start at 09:00 Budesonide (Pulmicort) 0.5 mg RTBID NEB Last administered on 07/23/16 11:43; Start 07/22/16 at 09:00 Non-Formulary Medication 1 puff DAILY IH ; Start 07/22/16 at 09:00; Status UNV Clozapine (Clozaril) 100 mg DAILY PO ; Start 07/22/16 at 09:00 Furosemide (Lasix) 40 mg 1X ONCE IVP Last administered on 07/22/16 10:03; Start 07/22/16 at 08:45; Stop 07/22/16 at 08:46; Status DC Lorazepam (Ativan) 2 mg 1X ONCE IV Last administered on 07/22/16t 11:32; Start 07/22/16 at 12:00; Stop 07/22/16 at 12:01; Status DC Lorazepam (Ativan) 2 mg 1X ONCE IV ; Start 07/22/16 at 14:30; Stop 07/22/16 at 14:31; Status DC Diphenhydramine HCl (Benadryl) 25 mg PRN QHS PRN PO INSOMNIA; Start 07/23/16 at 03:15 Active Scripts Active Duoneb 0.5-3(2.5) Mg/3 Ml (Albuterol/Ipratropium) 3 Ml Ampul.neb 3 Ml NEB RTQID Amlodipine Besylate 10 Mg Tablet 10 Mg PO BID 30 Days Diltiazem 24Hr Cd (Diltiazem HCl) 180 Mg Cap.er.24h 180 Mg PO DAILY 30 Days Clopidogrel (Clopidogrel Bisulfate) 75 Mg Tablet 75 Mg PO DAILYWBKFT 30 Days Saline Mist (Sodium Chloride) 45 Ml [place] 1 Chad NS PRN Q1HR PRN 30 Days Carvedilol 12.5 Mg Tablet 12.5 Mg PO BIDWMEALS 30 Days Children's Aspirin (Aspirin) 81 Mg Tab.chew 81 Mg PO DAILYWBKFT 30 Days Novolog Flexpen (Insulin Aspart) 100 Unit/1 Ml Insuln.pen 15 Units SQ TIDAC Levemir Flextouch (Insulin Detemir) 100 Unit/1 Ml Insuln.pen 45 Units SQ QHS Cyclobenzaprine Hcl 10 Mg Tablet 10 Mg PO PRN TID PRN Hydrocodone-Apap 7.5-325 (Hydrocodone Bit/Acetaminophen) 1 Each Tablet 1-2 Tab PO PRN TID PRN Ventolin Hfa Inhaler (Albuterol Sulfate) 18 Gm Hfa.aer.ad 2 Puff IH PRN Q4-6HRS Albuterol Sulfate Neb Soln (Albuterol Sulfate) 2.5 Mg/3 Ml Vial.neb 1 Vial NEB PRN Q4HRS Alprazolam 0.5 Mg Tablet 0.5 Mg PO BID PRN Reported Lisinopril 2.5 Mg Tablet 2.5 Mg PO DAILY Carvedilol 6.25 Mg Tablet 6.25 Mg PO BIDWMEALS Ondansetron Odt (Ondansetron) 4 Mg Tab.rapdis 4 Mg PO Q8HRS PRN Breo Ellipta 100-25 Mcg Inh (Fluticasone/Vilanterol) 1 Each Aer.pow.ba 1 Puff IH DAILY Lipitor (Atorvastatin Calcium) 20 Mg Tablet 20 Mg PO HS Advair 250-50 Diskus (Fluticasone/Salmeterol) 1 Each Disk.w.dev 2 Puff INH BID Bumetanide 2 Mg Tablet 2 Mg PO BID Spironolactone 25 Mg Tablet 25 Mg PO DAILY Allergies Allergies: Coded Allergies: adhesive (Verified Allergy, Intermediate, rash, 09/18/15) metformin (Verified Allergy, Intermediate, rash, 04/15/16) ROS Review of System Unable to obtain Physical Exam General: Other (confused) HEENT: Mucous membr. moist/pink, Other (poor dentition) Lungs: Normal air movement Heart: Regular rate, Normal S1, Normal S2 Abdomen: No masses, Other (distended ) Extremities: No cyanosis, No edema, No tenderness/swelling Skin: No rashes Vitals VITALS Vital Signs Date Time Temp Pulse Resp B/P Pulse Ox O2 Delivery O2 Flow Rate FiO2 07/23/16 11:44 100 Nasal Cannula 3.0 07/23/16 11:00 96.7 64 20 94/48 96.7 Labs Labs Laboratory Tests Test 07/21/16 17:30 07/21/16 19:20 07/21/16 19:23 07/22/16 06:35 White Blood Count 7.2x10^3/uL (4.0-11.0) 13.5x10^3/uL (4.0-11.0) Red Blood Count 3.73x10^6/uL (3.50-5.40) 3.89x10^6/uL (3.50-5.40) Hemoglobin 9.0g/dL (12.0-15.5) 9.2g/dL (12.0-15.5) Hematocrit 29.1% (36.0-47.0) 30.8% (36.0-47.0) Mean Corpuscular Volume 78fL (79-100) 79fL (79-100) Mean Corpuscular Hemoglobin 24pg (25-35) 24pg (25-35) Mean Corpuscular Hemoglobin Concent 31g/dL (31-37) 30g/dL (31-37) Red Cell Distribution Width 20.1% (11.5-14.5) 19.9% (11.5-14.5) Platelet Count 288x10^3/uL (140-400) 287x10^3/uL (140-400) Neutrophils (%) (Auto) 67% (31-73) 82% (31-73) Lymphocytes (%) (Auto) 17% (24-48) 5% (24-48) Monocytes (%) (Auto) 15% (0-9) 12% (0-9) Eosinophils (%) (Auto) 0% (0-3) 0% (0-3) Basophils (%) (Auto) 1% (0-3) 1% (0-3) Neutrophils # (Auto) 4.9x10^3uL (1.8-7.7) 11.1x10^3uL (1.8-7.7) Lymphocytes # (Auto) 1.2x10^3/uL (1.0-4.8) 0.7x10^3/uL (1.0-4.8) Monocytes # (Auto) 1.1x10^3/uL (0.0-1.1) 1.6x10^3/uL (0.0-1.1) Eosinophils # (Auto) 0.0x10^3/uL (0.0-0.7) 0.0x10^3/uL (0.0-0.7) Basophils # (Auto) 0.1x10^3/uL (0.0-0.2) 0.1x10^3/uL (0.0-0.2) Platelet Estimate Adequate (ADEQUATE) Polychromasia Slight Hypochromasia Slight Poikilocytosis Slight Anisocytosis Mod Tear Drop Cells Few Prothrombin Time 14.9SEC (11.7-14.0) Prothromb Time International Ratio 1.2 (0.8-1.1) Sodium Level 131mmol/L (136-145) 134mmol/L (136-145) Potassium Level 4.5mmol/L (3.5-5.1) 5.4mmol/L (3.5-5.1) Chloride Level 91mmol/L (98-107) 91mmol/L (98-107) Carbon Dioxide Level 35mmol/L (21-32) 32mmol/L (21-32) Anion Gap 5 (6-14) 11 (6-14) Blood Urea Nitrogen 50mg/dL (7-20) 57mg/dL (7-20) Creatinine 1.5mg/dL (0.6-1.0) 1.6mg/dL (0.6-1.0) Estimated GFR (Cockcroft-Gault) 43.8 40.6 BUN/Creatinine Ratio 33 (6-20) 36 (6-20) Glucose Level 121mg/dL (70-99) 105mg/dL (70-99) Calcium Level 9.3mg/dL (8.5-10.1) 9.5mg/dL (8.5-10.1) Total Bilirubin 1.3mg/dL (0.2-1.0) 2.0mg/dL (0.2-1.0) Aspartate Amino Transf (AST/SGOT) 29U/L (15-37) 35U/L (15-37) Alanine Aminotransferase (ALT/SGPT) 21U/L (14-59) 22U/L (14-59) Alkaline Phosphatase 169U/L (46-116) 197U/L (46-116) Troponin I Quantitative 0.018ng/mL (0.000-0.055) AE-Htu-C-Type Natriuretic Peptide 744pg/mL (0-124) Total Protein 7.6g/dL (6.4-8.2) 7.5g/dL (6.4-8.2) Albumin 2.8g/dL (3.4-5.0) 3.2g/dL (3.4-5.0) Albumin/Globulin Ratio 0.6 (1.0-1.7) 0.7 (1.0-1.7) Salicylates Level < 2.8mg/dL (2.8-20.0) Salicylate Last Dose Date Unknown Salicylate Last Dose Time Unknown Acetaminophen Level < 2mcg/ml (10-30) Acetaminophen Last Dose Date Unknown Acetaminophen Last Dose Time Unknown Urine Collection Type U cath Urine Color Candace Urine Clarity Clear Urine pH 5.5 Urine Specific [place] 1.015 Urine Protein Negativemg/dL (NEG-TRACE) Urine Glucose (UA) Negativemg/dL (NEG) Urine Ketones (Stick) Negativemg/dL (NEG) Urine Blood Negative (NEG) Urine Nitrite Negative (NEG) Urine Bilirubin Small (NEG) Urine Urobilinogen Dipstick 2.0mg/dL (0.2 mg/dL) Urine Leukocyte Esterase Negative (NEG) Urine RBC 0/HPF (0-2) Urine WBC 1-4/HPF (0-4) Urine Squamous Epithelial Cells Few/LPF Urine Amorphous Sediment Present/HPF Urine Bacteria 0/HPF (0-FEW) Urine Hyaline Casts Moderate/HPF Urine Mucus Marked/LPF Urine Yeast Present/HPF Urine Opiates Screen Pos (NEG) Urine Methadone Screen Neg (NEG) Urine Barbiturates Neg (NEG) Urine Phencyclidine Screen Neg (NEG) Urine Amphetamine/Methamphetamine Neg (NEG) Urine Benzodiazepines Screen Pos (NEG) Urine Cocaine Screen Neg (NEG) Urine Cannabinoids Screen Pos (NEG) Urine Ethyl Alcohol Neg (NEG) Lactic Acid Level 1.2mmol/L (0.4-2.0) Test 07/22/16 09:43 07/22/16 11:47 07/22/16 17:20 07/22/16 18:25 Glucose (Fingerstick) 108mg/dL (70-99) 208mg/dL (70-99) 142mg/dL (70-99) O2 Saturation 87% (92-99) Arterial Blood pH 7.39 (7.35-7.45) Arterial Blood pCO2 at Patient Temp 44mmHg (35-46) Arterial Blood pO2 at Patient Temp 57mmHg (75-108) Arterial Blood HCO3 26mmol/L (21-28) Arterial Blood Base Excess 1mmol/L (-3-3) FiO2 28 Test 07/22/16 21:12 07/23/16 03:50 07/23/16 08:12 07/23/16 11:30 Glucose (Fingerstick) 116mg/dL (70-99) 71mg/dL (70-99) 61mg/dL (70-99) White Blood Count 8.9x10^3/uL (4.0-11.0) Red Blood Count 3.99x10^6/uL (3.50-5.40) Hemoglobin 9.5g/dL (12.0-15.5) Hematocrit 31.3% (36.0-47.0) Mean Corpuscular Volume 78fL (79-100) Mean Corpuscular Hemoglobin 24pg (25-35) Mean Corpuscular Hemoglobin Concent 31g/dL (31-37) Red Cell Distribution Width 20.1% (11.5-14.5) Platelet Count 308x10^3/uL (140-400) Neutrophils (%) (Auto) 83% (31-73) Lymphocytes (%) (Auto) 9% (24-48) Monocytes (%) (Auto) 8% (0-9) Eosinophils (%) (Auto) 0% (0-3) Basophils (%) (Auto) 0% (0-3) Neutrophils # (Auto) 7.4x10^3uL (1.8-7.7) Lymphocytes # (Auto) 0.8x10^3/uL (1.0-4.8) Monocytes # (Auto) 0.7x10^3/uL (0.0-1.1) Eosinophils # (Auto) 0.0x10^3/uL (0.0-0.7) Basophils # (Auto) 0.0x10^3/uL (0.0-0.2) Sodium Level 132mmol/L (136-145) Potassium Level 4.6mmol/L (3.5-5.1) Chloride Level 91mmol/L (98-107) Carbon Dioxide Level 32mmol/L (21-32) Anion Gap 9 (6-14) Blood Urea Nitrogen 69mg/dL (7-20) Creatinine 1.8mg/dL (0.6-1.0) Estimated GFR (Cockcroft-Gault) 35.5 Glucose Level 71mg/dL (70-99) Calcium Level 9.4mg/dL (8.5-10.1) Test 07/23/16 13:01 07/23/16 13:05 Glucose (Fingerstick) 92mg/dL (70-99) Creatine Kinase 354U/L (26-192) Laboratory Tests Test 07/22/16 17:20 07/22/16 18:25 07/22/16 21:12 07/23/16 03:50 Glucose (Fingerstick) 142mg/dL (70-99) 116mg/dL (70-99) O2 Saturation 87% (92-99) Arterial Blood pH 7.39 (7.35-7.45) Arterial Blood pCO2 at Patient Temp 44mmHg (35-46) Arterial Blood pO2 at Patient Temp 57mmHg (75-108) Arterial Blood HCO3 26mmol/L (21-28) Arterial Blood Base Excess 1mmol/L (-3-3) FiO2 28 White Blood Count 8.9x10^3/uL (4.0-11.0) Red Blood Count 3.99x10^6/uL (3.50-5.40) Hemoglobin 9.5g/dL (12.0-15.5) Hematocrit 31.3% (36.0-47.0) Mean Corpuscular Volume 78fL (79-100) Mean Corpuscular Hemoglobin 24pg (25-35) Mean Corpuscular Hemoglobin Concent 31g/dL (31-37) Red Cell Distribution Width 20.1% (11.5-14.5) Platelet Count 308x10^3/uL (140-400) Neutrophils (%) (Auto) 83% (31-73) Lymphocytes (%) (Auto) 9% (24-48) Monocytes (%) (Auto) 8% (0-9) Eosinophils (%) (Auto) 0% (0-3) Basophils (%) (Auto) 0% (0-3) Neutrophils # (Auto) 7.4x10^3uL (1.8-7.7) Lymphocytes # (Auto) 0.8x10^3/uL (1.0-4.8) Monocytes # (Auto) 0.7x10^3/uL (0.0-1.1) Eosinophils # (Auto) 0.0x10^3/uL (0.0-0.7) Basophils # (Auto) 0.0x10^3/uL (0.0-0.2) Sodium Level 132mmol/L (136-145) Potassium Level 4.6mmol/L (3.5-5.1) Chloride Level 91mmol/L (98-107) Carbon Dioxide Level 32mmol/L (21-32) Anion Gap 9 (6-14) Blood Urea Nitrogen 69mg/dL (7-20) Creatinine 1.8mg/dL (0.6-1.0) Estimated GFR (Cockcroft-Gault) 35.5 Glucose Level 71mg/dL (70-99) Calcium Level 9.4mg/dL (8.5-10.1) Test 07/23/16 08:12 07/23/16 11:30 07/23/16 13:01 07/23/16 13:05 Glucose (Fingerstick) 71mg/dL (70-99) 61mg/dL (70-99) 92mg/dL (70-99) Creatine Kinase 354U/L (26-192) Assessment/Plan Assessment/Plan AMS acute on chronic CHF exacerbation JUAN DIEGO - POA COPD DM2 Substance abuse Continue diurese for now - may need to consider dobutamine drip. Thank you for asking me to participate in the care of this pt. GWEN WORTHY MD Jul 23, 2016 14:43
[2016-07-23 15:00] VITALS: BP 94/55
--- NOTE | 2016-07-23 15:29 | PDOC2 ---
NEUROLOGY CONSULT Date of Admission Date of Admission DATE: 07/23/16 TIME: 15:09 Reason for Consult Reason for Consult: IMPRESSION: Abnormal twitching movements in hands. Recent left pleural effusion. Sarcoidosis of lung per Hx. CHF, acute on chronic. S/ CABG AFib COPD DM Anemia Obesity. Cannabinoids positive in system. Benzo and Opiate positive in system. RECOMMENDATIONS/PLAN: HCT ordered by team, reports pending. EEG Lab: see orders. Treat medical diseases. OT/PT. HISTORY OF THE PRESENT ILLNESS: 56-y-old AA female patient with above medical diseases was familiar to ER physicians. She came to the ER of [facility] this time with multiple complaints medically and psychiatrically. She stated she has been having twitching movements in her arms lately and has increased symptoms of her anxiety and panic attacks. etc. No acute focalized neurological motor or sensory deficits. PAST MEDICAL HISTORY: Please see above. PAST SURGERY HISTORY: Tonsillectomy Cholecystectomy Hysterectomy ALLERGY: Metformin Adhesives MEDICATIONS: Refer to [facility] FAMILY HISTORY: Non contributory. SOCIAL HISTORY: Unknown her smoking, drinking, and illicit drug use status. Patient did not provide such history on exam. REVIEW OF SYSTEMS: Constitutional: No malnutrition, weight loss, cachexia. Head: No traumatic brain or head injury. Skin: No edema, or rash. Ear: No infection, tinnitus. Eyes: No vision loss or color blindness. Nose: No bleeding or purulent discharges. Hearing: No hearing decrease. Neck: No injury. Breast: No history of cancer, masses,or discharges. Cardiac: AFib Pulmonary: COPD. GI: No GI ulcer, GI bleeding. Urinary/genital: UTI. Endocrinologic: Diabetes Mellitus, obesity. Skeletomuscular: No muscular atrophy, deformity. Neurological: see HP. Psychiatric: Denies drug use/abuse. Otherwise, not [id number] review of systems. PHYSICAL EXAMINATION: General appearance is sleepiness. HEENT: Normocephalic and nontraumatic. Eyes, nose, ears, and throat are unremarkable. Neck is supple. No lymphadenopathy. No crepitus. Cardiovascular: S1, S2, seemed irregular rate and rhythm. Pulmonary: Breathing sounds mildly decreased to auscultation bilaterally. Abdomen: Bowel sounds are positive. Extremities: No rash, lesions, or edema. No restriction of range of motion NEUROLOGICAL EXAMINATION: Sleepiness but arousable. Not sure if she was oriented to time, place and person due to not follow commands. PERRL. EOMI. CN: no focal findings. Muscle tone: within normal. Muscle strength: 5- DTR: 2 UE, 1+ knee Plantar reflex: Flexor response bilaterally Gait: not examined in bed. Sensory exam: no abnormal findings. Not able to access cerebellar signs due to not follow commands.. Not able to perform F-T-N test due to not follow commands. Current Medications Current Medications Current Medications Sodium Chloride (Iv Sodium Chloride 0.9% 500ml Bag) 500 ml @ 0 mls/hr 1X ONCE IV Last administered on 07/21/16 18:32; Start 07/21/16 at 17:45; Stop at 17:46; Status DC Lorazepam (Ativan) 2 mg STK-MED ONCE .ROUTE ; Start 07/21/16 at 19:13; Stop at 19:14; Status DC Ondansetron HCl (Zofran) 4 mg PRN Q8HRS PRN IV NAUSEA/VOMITING; Start 07/21/16 at 19:15; Stop 07/22/16 at 19:14; Status DC Fentanyl Citrate (Fentanyl 2ml Vial) 50 mcg PRN Q1HR PRN IV PAIN Last administered on 07/22/16 19:08; Start 07/21/16 at 19:15; Stop 07/22/16 at 19:14 ; Status DC Acetaminophen (Tylenol) 650 mg PRN Q4HRS PRN PO FEVER; Start 07/21/16 at 19:15 ; Stop 07/22/16 at 19:14; Status DC Albuterol/ Ipratropium (Duoneb) 3 ml RTQID NEB Last administered on 07/22/16 07:42; Start 07/21/16 at 20:00; Stop 07/22/16 at 08:40; Status DC Lorazepam (Ativan) 2 mg 1X ONCE IV Last administered on 07/21/16 19:19; Start 07/21/16 at 19:15; Stop 07/21/16 at 19:17; Status DC Lorazepam (Ativan) 2 mg 1X ONCE IV ; Start 07/21/16 at 23:55; Stop 07/21/16 at 23:56; Status DC Albuterol Sulfate (Ventolin Neb Soln) 2.5 mg PRN Q4HRS PRN NEB SHORTNESS OF BREATH; Start 07/22/16 at 08:30 Alprazolam (Xanax) 0.5 mg PRN BID PRN PO ANXIETY / AGITATION; Start 07/22/16 at 08:30 Amlodipine Besylate (Norvasc) 10 mg BID PO Last administered on 07/22/16 10:06 ; Start 07/22/16 at 09:00 Aspirin (Children'S Aspirin) 81 mg DAILYWBKFT PO Last administered on 10:06; Start 07/22/16 at 09:00 Atorvastatin Calcium (Lipitor) 20 mg HS PO ; Start 07/22/16 at 21:00 Carvedilol (Coreg) 6.25 mg BIDWMEALS PO Last administered on 07/22/16 18:25; Start 07/22/16 at 09:00 Carvedilol (Coreg) 12.5 mg BIDWMEALS PO ; Start 07/22/16 at 17:00; Status UNV Clopidogrel Bisulfate (Plavix) 75 mg DAILYWBKFT PO Last administered on 10:05; Start 07/22/16 at 09:00 Diltiazem HCl (Cardizem 24hr Cd) 180 mg DAILY PO ; Start 07/22/16 at 09:00 Acetaminophen/ Hydrocodone Bitart (Lortab 7.5/325) 1 tab PRN TID PRN PO PAIN Last administered on 07/23/16 06:19; Start 07/22/16 at 08:30 Insulin Aspart (Novolog) 15 units TIDAC SQ Last administered on 07/22/16 18:33 ; Start 07/22/16 at 09:00 Insulin Detemir (Levemir) 45 units QHS SQ ; Start 07/22/16 at 21:00 Albuterol/ Ipratropium (Duoneb) 3 ml RTQID NEB Last administered on 07/23/16 11 :42; Start 07/22/16 at 12:00 Lisinopril (Prinivil) 2.5 mg DAILY PO Last administered on 07/22/16 10:04; Start 07/22/16 at 09:00 Ondansetron HCl (Zofran Odt) 4 mg PRN Q8HRS PRN PO NAUSEA/VOMITING; Start 07/22 at 08:30 Sodium Chloride (Saline Mist Nasal) 1 chad PRN Q1HR PRN NS NASAL CONGESTION; Start 07/22/16 at 08:30 Spironolactone (Aldactone) 25 mg DAILY PO ; Start 07/22/16 at 09:00; Stop at 09:00; Status DC Non-Formulary Medication 2 puff PRN Q4-6HRS IH ; Start 07/22/16 at 08:30; Status UNV Bumetanide (Bumex) 2 mg BID94 PO Last administered on 07/22/16 18:25; Start at 09:00 Budesonide (Pulmicort) 0.5 mg RTBID NEB Last administered on 07/23/16 11:43; Start 07/22/16 at 09:00 Non-Formulary Medication 1 puff DAILY IH ; Start 07/22/16 at 09:00; Status UNV Clozapine (Clozaril) 100 mg DAILY PO ; Start 07/22/16 at 09:00 Furosemide (Lasix) 40 mg 1X ONCE IVP Last administered on 07/22/16 10:03; Start 07/22/16 at 08:45; Stop 07/22/16 at 08:46; Status DC Lorazepam (Ativan) 2 mg 1X ONCE IV Last administered on 07/22/16 11:32; Start 07/22/16 at 12:00; Stop 07/22/16 at 12:01; Status DC Lorazepam (Ativan) 2 mg 1X ONCE IV ; Start 07/22/16 at 14:30; Stop 07/22/16 at 14:31; Status DC Diphenhydramine HCl (Benadryl) 25 mg PRN QHS PRN PO INSOMNIA; Start 07/23/16 at 03:15 Active Scripts Active Duoneb 0.5-3(2.5) Mg/3 Ml (Albuterol/Ipratropium) 3 Ml Ampul.neb 3 Ml NEB RTQID Amlodipine Besylate 10 Mg Tablet 10 Mg PO BID 30 Days Diltiazem 24Hr Cd (Diltiazem HCl) 180 Mg Cap.er.24h 180 Mg PO DAILY 30 Days Clopidogrel (Clopidogrel Bisulfate) 75 Mg Tablet 75 Mg PO DAILYWBKFT 30 Days Saline Mist (Sodium Chloride) 45 Ml [place] 1 Chad NS PRN Q1HR PRN 30 Days Carvedilol 12.5 Mg Tablet 12.5 Mg PO BIDWMEALS 30 Days Children's Aspirin (Aspirin) 81 Mg Tab.chew 81 Mg PO DAILYWBKFT 30 Days Novolog Flexpen (Insulin Aspart) 100 Unit/1 Ml Insuln.pen 15 Units SQ TIDAC Levemir Flextouch (Insulin Detemir) 100 Unit/1 Ml Insuln.pen 45 Units SQ QHS Cyclobenzaprine Hcl 10 Mg Tablet 10 Mg PO PRN TID PRN Hydrocodone-Apap 7.5-325 (Hydrocodone Bit/Acetaminophen) 1 Each Tablet 1-2 Tab PO PRN TID PRN Ventolin Hfa Inhaler (Albuterol Sulfate) 18 Gm Hfa.aer.ad 2 Puff IH PRN Q4-6HRS Albuterol Sulfate Neb Soln (Albuterol Sulfate) 2.5 Mg/3 Ml Vial.neb 1 Vial NEB PRN Q4HRS Alprazolam 0.5 Mg Tablet 0.5 Mg PO BID PRN Reported Lisinopril 2.5 Mg Tablet 2.5 Mg PO DAILY Carvedilol 6.25 Mg Tablet 6.25 Mg PO BIDWMEALS Ondansetron Odt (Ondansetron) 4 Mg Tab.rapdis 4 Mg PO Q8HRS PRN Breo Ellipta 100-25 Mcg Inh (Fluticasone/Vilanterol) 1 Each Aer.pow.ba 1 Puff IH DAILY Lipitor (Atorvastatin Calcium) 20 Mg Tablet 20 Mg PO HS Advair 250-50 Diskus (Fluticasone/Salmeterol) 1 Each Disk.w.dev 2 Puff INH BID Bumetanide 2 Mg Tablet 2 Mg PO BID Spironolactone 25 Mg Tablet 25 Mg PO DAILY Allergies Allergies: Coded Allergies: adhesive (Verified Allergy, Intermediate, rash, 09/18/15) metformin (Verified Allergy, Intermediate, rash, 04/15/16) Vitals VITALS Vital Signs Date Time Temp Pulse Resp B/P Pulse Ox O2 Delivery O2 Flow Rate FiO2 07/23/16 11:44 100 Nasal Cannula 3.0 07/23/16 11:00 96.7 64 20 94/48 96.7 Labs Labs Laboratory Tests Test 2/27/17 17:30 07/21/16 19:20 07/21/16 19:23 07/22/16 06:35 White Blood Count 7.2x10^3/uL (4.0-11.0) 13.5x10^3/uL (4.0-11.0) Red Blood Count 3.73x10^6/uL (3.50-5.40) 3.89x10^6/uL (3.50-5.40) Hemoglobin 9.0g/dL (12.0-15.5) 9.2g/dL (12.0-15.5) Hematocrit 29.1% (36.0-47.0) 30.8% (36.0-47.0) Mean Corpuscular Volume 78fL (79-100) 79fL (79-100) Mean Corpuscular Hemoglobin 24pg (25-35) 24pg (25-35) Mean Corpuscular Hemoglobin Concent 31g/dL (31-37) 30g/dL (31-37) Red Cell Distribution Width 20.1% (11.5-14.5) 19.9% (11.5-14.5) Platelet Count 288x10^3/uL (140-400) 287x10^3/uL (140-400) Neutrophils (%) (Auto) 67% (31-73) 82% (31-73) Lymphocytes (%) (Auto) 17% (24-48) 5% (24-48) Monocytes (%) (Auto) 15% (0-9) 12% (0-9) Eosinophils (%) (Auto) 0% (0-3) 0% (0-3) Basophils (%) (Auto) 1% (0-3) 1% (0-3) Neutrophils # (Auto) 4.9x10^3uL (1.8-7.7) 11.1x10^3uL (1.8-7.7) Lymphocytes # (Auto) 1.2x10^3/uL (1.0-4.8) 0.7x10^3/uL (1.0-4.8) Monocytes # (Auto) 1.1x10^3/uL (0.0-1.1) 1.6x10^3/uL (0.0-1.1) Eosinophils # (Auto) 0.0x10^3/uL (0.0-0.7) 0.0x10^3/uL (0.0-0.7) Basophils # (Auto) 0.1x10^3/uL (0.0-0.2) 0.1x10^3/uL (0.0-0.2) Platelet Estimate Adequate (ADEQUATE) Polychromasia Slight Hypochromasia Slight Poikilocytosis Slight Anisocytosis Mod Tear Drop Cells Few Prothrombin Time 14.9SEC (11.7-14.0) Prothromb Time International Ratio 1.2 (0.8-1.1) Sodium Level 131mmol/L (136-145) 134mmol/L (136-145) Potassium Level 4.5mmol/L (3.5-5.1) 5.4mmol/L (3.5-5.1) Chloride Level 91mmol/L (98-107) 91mmol/L (98-107) Carbon Dioxide Level 35mmol/L (21-32) 32mmol/L (21-32) Anion Gap 5 (6-14) 11 (6-14) Blood Urea Nitrogen 50mg/dL (7-20) 57mg/dL (7-20) Creatinine 1.5mg/dL (0.6-1.0) 1.6mg/dL (0.6-1.0) Estimated GFR (Cockcroft-Gault) 43.8 40.6 BUN/Creatinine Ratio 33 (6-20) 36 (6-20) Glucose Level 121mg/dL (70-99) 105mg/dL (70-99) Calcium Level 9.3mg/dL (8.5-10.1) 9.5mg/dL (8.5-10.1) Total Bilirubin 1.3mg/dL (0.2-1.0) 2.0mg/dL (0.2-1.0) Aspartate Amino Transf (AST/SGOT) 29U/L (15-37) 35U/L (15-37) Alanine Aminotransferase (ALT/SGPT) 21U/L (14-59) 22U/L (14-59) Alkaline Phosphatase 169U/L (46-116) 197U/L (46-116) Troponin I Quantitative 0.018ng/mL (0.000-0.055) RA-Fvg-Q-Type Natriuretic Peptide 744pg/mL (0-124) Total Protein 7.6g/dL (6.4-8.2) 7.5g/dL (6.4-8.2) Albumin 2.8g/dL (3.4-5.0) 3.2g/dL (3.4-5.0) Albumin/Globulin Ratio 0.6 (1.0-1.7) 0.7 (1.0-1.7) Salicylates Level < 2.8mg/dL (2.8-20.0) Salicylate Last Dose Date Unknown Salicylate Last Dose Time Unknown Acetaminophen Level < 2mcg/ml (10-30) Acetaminophen Last Dose Date Unknown Acetaminophen Last Dose Time Unknown Urine Collection Type U cath Urine Color Candace Urine Clarity Clear Urine pH 5.5 Urine Specific [place] 1.015 Urine Protein Negativemg/dL (NEG-TRACE) Urine Glucose (UA) Negativemg/dL (NEG) Urine Ketones (Stick) Negativemg/dL (NEG) Urine Blood Negative (NEG) Urine Nitrite Negative (NEG) Urine Bilirubin Small (NEG) Urine Urobilinogen Dipstick 2.0mg/dL (0.2 mg/dL) Urine Leukocyte Esterase Negative (NEG) Urine RBC 0/HPF (0-2) Urine WBC 1-4/HPF (0-4) Urine Squamous Epithelial Cells Few/LPF Urine Amorphous Sediment Present/HPF Urine Bacteria 0/HPF (0-FEW) Urine Hyaline Casts Moderate/HPF Urine Mucus Marked/LPF Urine Yeast Present/HPF Urine Opiates Screen Pos (NEG) Urine Methadone Screen Neg (NEG) Urine Barbiturates Neg (NEG) Urine Phencyclidine Screen Neg (NEG) Urine Amphetamine/Methamphetamine Neg (NEG) Urine Benzodiazepines Screen Pos (NEG) Urine Cocaine Screen Neg (NEG) Urine Cannabinoids Screen Pos (NEG) Urine Ethyl Alcohol Neg (NEG) Lactic Acid Level 1.2mmol/L (0.4-2.0) Test 07/22/16 09:43 07/22/16 11:47 07/22/16 17:20 07/22/16 18:25 Glucose (Fingerstick) 108mg/dL (70-99) 208mg/dL (70-99) 142mg/dL (70-99) O2 Saturation 87% (92-99) Arterial Blood pH 7.39 (7.35-7.45) Arterial Blood pCO2 at Patient Temp 44mmHg (35-46) Arterial Blood pO2 at Patient Temp 57mmHg (75-108) Arterial Blood HCO3 26mmol/L (21-28) Arterial Blood Base Excess 1mmol/L (-3-3) FiO2 28 Test 07/22/16 21:12 07/23/16 03:50 07/23/16 08:12 07/23/16 11:30 Glucose (Fingerstick) 116mg/dL (70-99) 71mg/dL (70-99) 61mg/dL (70-99) White Blood Count 8.9x10^3/uL (4.0-11.0) Red Blood Count 3.99x10^6/uL (3.50-5.40) Hemoglobin 9.5g/dL (12.0-15.5) Hematocrit 31.3% (36.0-47.0) Mean Corpuscular Volume 78fL (79-100) Mean Corpuscular Hemoglobin 24pg (25-35) Mean Corpuscular Hemoglobin Concent 31g/dL (31-37) Red Cell Distribution Width 20.1% (11.5-14.5) Platelet Count 308x10^3/uL (140-400) Neutrophils (%) (Auto) 83% (31-73) Lymphocytes (%) (Auto) 9% (24-48) Monocytes (%) (Auto) 8% (0-9) Eosinophils (%) (Auto) 0% (0-3) Basophils (%) (Auto) 0% (0-3) Neutrophils # (Auto) 7.4x10^3uL (1.8-7.7) Lymphocytes # (Auto) 0.8x10^3/uL (1.0-4.8) Monocytes # (Auto) 0.7x10^3/uL (0.0-1.1) Eosinophils # (Auto) 0.0x10^3/uL (0.0-0.7) Basophils # (Auto) 0.0x10^3/uL (0.0-0.2) Sodium Level 132mmol/L (136-145) Potassium Level 4.6mmol/L (3.5-5.1) Chloride Level 91mmol/L (98-107) Carbon Dioxide Level 32mmol/L (21-32) Anion Gap 9 (6-14) Blood Urea Nitrogen 69mg/dL (7-20) Creatinine 1.8mg/dL (0.6-1.0) Estimated GFR (Cockcroft-Gault) 35.5 Glucose Level 71mg/dL (70-99) Calcium Level 9.4mg/dL (8.5-10.1) Test 07/23/16 13:01 07/23/16 13:05 Glucose (Fingerstick) 92mg/dL (70-99) Erythrocyte Sedimentation Rate 85 (0-25) Creatine Kinase 354U/L (26-192) Thyroid Stimulating Hormone (TSH) 1.124uIU/mL (0.358-3.74) Laboratory Tests Test 07/22/16 17:20 07/22/16 18:25 07/22/16 21:12 07/23/16 03:50 Glucose (Fingerstick) 142mg/dL (70-99) 116mg/dL (70-99) O2 Saturation 87% (92-99) Arterial Blood pH 7.39 (7.35-7.45) Arterial Blood pCO2 at Patient Temp 44mmHg (35-46) Arterial Blood pO2 at Patient Temp 57mmHg (75-108) Arterial Blood HCO3 26mmol/L (21-28) Arterial Blood Base Excess 1mmol/L (-3-3) FiO2 28 White Blood Count 8.9x10^3/uL (4.0-11.0) Red Blood Count 3.99x10^6/uL (3.50-5.40) Hemoglobin 9.5g/dL (12.0-15.5) Hematocrit 31.3% (36.0-47.0) Mean Corpuscular Volume 78fL (79-100) Mean Corpuscular Hemoglobin 24pg (25-35) Mean Corpuscular Hemoglobin Concent 31g/dL (31-37) Red Cell Distribution Width 20.1% (11.5-14.5) Platelet Count 308x10^3/uL (140-400) Neutrophils (%) (Auto) 83% (31-73) Lymphocytes (%) (Auto) 9% (24-48) Monocytes (%) (Auto) 8% (0-9) Eosinophils (%) (Auto) 0% (0-3) Basophils (%) (Auto) 0% (0-3) Neutrophils # (Auto) 7.4x10^3uL (1.8-7.7) Lymphocytes # (Auto) 0.8x10^3/uL (1.0-4.8) Monocytes # (Auto) 0.7x10^3/uL (0.0-1.1) Eosinophils # (Auto) 0.0x10^3/uL (0.0-0.7) Basophils # (Auto) 0.0x10^3/uL (0.0-0.2) Sodium Level 132mmol/L (136-145) Potassium Level 4.6mmol/L (3.5-5.1) Chloride Level 91mmol/L (98-107) Carbon Dioxide Level 32mmol/L (21-32) Anion Gap 9 (6-14) Blood Urea Nitrogen 69mg/dL (7-20) Creatinine 1.8mg/dL (0.6-1.0) Estimated GFR (Cockcroft-Gault) 35.5 Glucose Level 71mg/dL (70-99) Calcium Level 9.4mg/dL (8.5-10.1) Test 07/23/16 08:12 07/23/16 11:30 07/23/16 13:01 07/23/16 13:05 Glucose (Fingerstick) 71mg/dL (70-99) 61mg/dL (70-99) 92mg/dL (70-99) Erythrocyte Sedimentation Rate 85 (0-25) Creatine Kinase 354U/L (26-192) Thyroid Stimulating Hormone (TSH) 1.124uIU/mL (0.358-3.74) FELECIA HILL MD Jul 23, 2016 15:29
--- NOTE | 2016-07-23 15:42 | PDOC ---
PROGRESS NOTES Subjective Subjective More alert but still confused, she cannot recall precipitating events prior to hospitalization, no further bleeding from mouth, her sister says it started when in [facility] and she was sedated with alprazolam and bit her tongue when sleeping. Breathing without distress. Her sister is unaware of any potential trauma [employer] but pt has some muscular soreness in her neck, no fever or infectious symptoms to explain mental status change Objective Objective Vital Signs Date Time Temp Pulse Resp B/P Pulse Ox O2 Delivery O2 Flow Rate FiO2 07/23/16 11:44 100 Nasal Cannula 3.0 07/23/16 11:00 96.7 64 20 94/48 96.7 Intake and Output 07/23/16 07:00 Intake Total 100 ml Output Total 800 ml Balance -700 ml Intake Oral 100 ml Output Urine Total 800 ml # Bowel Movements 1 Physical Exam Abdomen: Soft (irregularly irregular) Extremities: No clubbing, No cyanosis General: Alert, Other (confused) HEENT: Other (no further bleeding from mouth, lips normal, no sinus tenderness) Lungs: Other (diminished right base, clear anteriorly) Neck: No JVD Neuro: Other (to weak to stand without assist) Skin: No significant lesion Assessment Assessment Problems Medical Problems: (1) Altered mental status - likely drug induced encephalopathy, CT brain pending , may need neurology consult Status: Acute (2) Myoclonic jerking - elevated CPK so will check urine myoglobin, may need EEG to look for seizure cause (3) acute on chronic diastolic and systolic heart failure with chronic recurring right pleural effusion, s/p thoracentesis last week at [facility] Status: Acute Comment Review of Relevant I have reviewed the following items mary (where applicable) has been applied. Labs Laboratory Tests Test 07/21/16 17:30 07/21/16 19:20 07/21/16 19:23 07/22/16 06:35 White Blood Count 7.2x10^3/uL (4.0-11.0) 13.5x10^3/uL (4.0-11.0) Red Blood Count 3.73x10^6/uL (3.50-5.40) 3.89x10^6/uL (3.50-5.40) Hemoglobin 9.0g/dL (12.0-15.5) 9.2g/dL (12.0-15.5) Hematocrit 29.1% (36.0-47.0) 30.8% (36.0-47.0) Mean Corpuscular Volume 78fL (79-100) 79fL (79-100) Mean Corpuscular Hemoglobin 24pg (25-35) 24pg (25-35) Mean Corpuscular Hemoglobin Concent 31g/dL (31-37) 30g/dL (31-37) Red Cell Distribution Width 20.1% (11.5-14.5) 19.9% (11.5-14.5) Platelet Count 288x10^3/uL (140-400) 287x10^3/uL (140-400) Neutrophils (%) (Auto) 67% (31-73) 82% (31-73) Lymphocytes (%) (Auto) 17% (24-48) 5% (24-48) Monocytes (%) (Auto) 15% (0-9) 12% (0-9) Eosinophils (%) (Auto) 0% (0-3) 0% (0-3) Basophils (%) (Auto) 1% (0-3) 1% (0-3) Neutrophils # (Auto) 4.9x10^3uL (1.8-7.7) 11.1x10^3uL (1.8-7.7) Lymphocytes # (Auto) 1.2x10^3/uL (1.0-4.8) 0.7x10^3/uL (1.0-4.8) Monocytes # (Auto) 1.1x10^3/uL (0.0-1.1) 1.6x10^3/uL (0.0-1.1) Eosinophils # (Auto) 0.0x10^3/uL (0.0-0.7) 0.0x10^3/uL (0.0-0.7) Basophils # (Auto) 0.1x10^3/uL (0.0-0.2) 0.1x10^3/uL (0.0-0.2) Platelet Estimate Adequate (ADEQUATE) Polychromasia Slight Hypochromasia Slight Poikilocytosis Slight Anisocytosis Mod Tear Drop Cells Few Prothrombin Time 14.9SEC (11.7-14.0) Prothromb Time International Ratio 1.2 (0.8-1.1) Sodium Level 131mmol/L (136-145) 134mmol/L (136-145) Potassium Level 4.5mmol/L (3.5-5.1) 5.4mmol/L (3.5-5.1) Chloride Level 91mmol/L (98-107) 91mmol/L (98-107) Carbon Dioxide Level 35mmol/L (21-32) 32mmol/L (21-32) Anion Gap 5 (6-14) 11 (6-14) Blood Urea Nitrogen 50mg/dL (7-20) 57mg/dL (7-20) Creatinine 1.5mg/dL (0.6-1.0) 1.6mg/dL (0.6-1.0) Estimated GFR (Cockcroft-Gault) 43.8 40.6 BUN/Creatinine Ratio 33 (6-20) 36 (6-20) Glucose Level 121mg/dL (70-99) 105mg/dL (70-99) Calcium Level 9.3mg/dL (8.5-10.1) 9.5mg/dL (8.5-10.1) Total Bilirubin 1.3mg/dL (0.2-1.0) 2.0mg/dL (0.2-1.0) Aspartate Amino Transf (AST/SGOT) 29U/L (15-37) 35U/L (15-37) Alanine Aminotransferase (ALT/SGPT) 21U/L (14-59) 22U/L (14-59) Alkaline Phosphatase 169U/L (46-116) 197U/L (46-116) Troponin I Quantitative 0.018ng/mL (0.000-0.055) FP-Nsr-W-Type Natriuretic Peptide 744pg/mL (0-124) Total Protein 7.6g/dL (6.4-8.2) 7.5g/dL (6.4-8.2) Albumin 2.8g/dL (3.4-5.0) 3.2g/dL (3.4-5.0) Albumin/Globulin Ratio 0.6 (1.0-1.7) 0.7 (1.0-1.7) Salicylates Level < 2.8mg/dL (2.8-20.0) Salicylate Last Dose Date Unknown Salicylate Last Dose Time Unknown Acetaminophen Level < 2mcg/ml (10-30) Acetaminophen Last Dose Date Unknown Acetaminophen Last Dose Time Unknown Urine Collection Type U cath Urine Color Candace Urine Clarity Clear Urine pH 5.5 Urine Specific [place] 1.015 Urine Protein Negativemg/dL (NEG-TRACE) Urine Glucose (UA) Negativemg/dL (NEG) Urine Ketones (Stick) Negativemg/dL (NEG) Urine Blood Negative (NEG) Urine Nitrite Negative (NEG) Urine Bilirubin Small (NEG) Urine Urobilinogen Dipstick 2.0mg/dL (0.2 mg/dL) Urine Leukocyte Esterase Negative (NEG) Urine RBC 0/HPF (0-2) Urine WBC 1-4/HPF (0-4) Urine Squamous Epithelial Cells Few/LPF Urine Amorphous Sediment Present/HPF Urine Bacteria 0/HPF (0-FEW) Urine Hyaline Casts Moderate/HPF Urine Mucus Marked/LPF Urine Yeast Present/HPF Urine Opiates Screen Pos (NEG) Urine Methadone Screen Neg (NEG) Urine Barbiturates Neg (NEG) Urine Phencyclidine Screen Neg (NEG) Urine Amphetamine/Methamphetamine Neg (NEG) Urine Benzodiazepines Screen Pos (NEG) Urine Cocaine Screen Neg (NEG) Urine Cannabinoids Screen Pos (NEG) Urine Ethyl Alcohol Neg (NEG) Lactic Acid Level 1.2mmol/L (0.4-2.0) Test 07/22/16 09:43 07/22/16 11:47 07/22/16 17:20 07/22/16 18:25 Glucose (Fingerstick) 108mg/dL (70-99) 208mg/dL (70-99) 142mg/dL (70-99) O2 Saturation 87% (92-99) Arterial Blood pH 7.39 (7.35-7.45) Arterial Blood pCO2 at Patient Temp 44mmHg (35-46) Arterial Blood pO2 at Patient Temp 57mmHg (75-108) Arterial Blood HCO3 26mmol/L (21-28) Arterial Blood Base Excess 1mmol/L (-3-3) FiO2 28 Test 07/22/16 21:12 07/23/16 03:50 07/23/16 08:12 07/23/16 11:30 Glucose (Fingerstick) 116mg/dL (70-99) 71mg/dL (70-99) 61mg/dL (70-99) White Blood Count 8.9x10^3/uL (4.0-11.0) Red Blood Count 3.99x10^6/uL (3.50-5.40) Hemoglobin 9.5g/dL (12.0-15.5) Hematocrit 31.3% (36.0-47.0) Mean Corpuscular Volume 78fL (79-100) Mean Corpuscular Hemoglobin 24pg (25-35) Mean Corpuscular Hemoglobin Concent 31g/dL (31-37) Red Cell Distribution Width 20.1% (11.5-14.5) Platelet Count 308x10^3/uL (140-400) Neutrophils (%) (Auto) 83% (31-73) Lymphocytes (%) (Auto) 9% (24-48) Monocytes (%) (Auto) 8% (0-9) Eosinophils (%) (Auto) 0% (0-3) Basophils (%) (Auto) 0% (0-3) Neutrophils # (Auto) 7.4x10^3uL (1.8-7.7) Lymphocytes # (Auto) 0.8x10^3/uL (1.0-4.8) Monocytes # (Auto) 0.7x10^3/uL (0.0-1.1) Eosinophils # (Auto) 0.0x10^3/uL (0.0-0.7) Basophils # (Auto) 0.0x10^3/uL (0.0-0.2) Sodium Level 132mmol/L (136-145) Potassium Level 4.6mmol/L (3.5-5.1) Chloride Level 91mmol/L (98-107) Carbon Dioxide Level 32mmol/L (21-32) Anion Gap 9 (6-14) Blood Urea Nitrogen 69mg/dL (7-20) Creatinine 1.8mg/dL (0.6-1.0) Estimated GFR (Cockcroft-Gault) 35.5 Glucose Level 71mg/dL (70-99) Calcium Level 9.4mg/dL (8.5-10.1) Test 07/23/16 13:01 07/23/16 13:05 Glucose (Fingerstick) 92mg/dL (70-99) Erythrocyte Sedimentation Rate 85 (0-25) Creatine Kinase 354U/L (26-192) Thyroid Stimulating Hormone (TSH) 1.124uIU/mL (0.358-3.74) Laboratory Tests Test 07/22/16 17:20 07/22/16 18:25 07/22/16 21:12 07/23/16 03:50 Glucose (Fingerstick) 142mg/dL (70-99) 116mg/dL (70-99) O2 Saturation 87% (92-99) Arterial Blood pH 7.39 (7.35-7.45) Arterial Blood pCO2 at Patient Temp 44mmHg (35-46) Arterial Blood pO2 at Patient Temp 57mmHg (75-108) Arterial Blood HCO3 26mmol/L (21-28) Arterial Blood Base Excess 1mmol/L (-3-3) FiO2 28 White Blood Count 8.9x10^3/uL (4.0-11.0) Red Blood Count 3.99x10^6/uL (3.50-5.40) Hemoglobin 9.5g/dL (12.0-15.5) Hematocrit 31.3% (36.0-47.0) Mean Corpuscular Volume 78fL (79-100) Mean Corpuscular Hemoglobin 24pg (25-35) Mean Corpuscular Hemoglobin Concent 31g/dL (31-37) Red Cell Distribution Width 20.1% (11.5-14.5) Platelet Count 308x10^3/uL (140-400) Neutrophils (%) (Auto) 83% (31-73) Lymphocytes (%) (Auto) 9% (24-48) Monocytes (%) (Auto) 8% (0-9) Eosinophils (%) (Auto) 0% (0-3) Basophils (%) (Auto) 0% (0-3) Neutrophils # (Auto) 7.4x10^3uL (1.8-7.7) Lymphocytes # (Auto) 0.8x10^3/uL (1.0-4.8) Monocytes # (Auto) 0.7x10^3/uL (0.0-1.1) Eosinophils # (Auto) 0.0x10^3/uL (0.0-0.7) Basophils # (Auto) 0.0x10^3/uL (0.0-0.2) Sodium Level 132mmol/L (136-145) Potassium Level 4.6mmol/L (3.5-5.1) Chloride Level 91mmol/L (98-107) Carbon Dioxide Level 32mmol/L (21-32) Anion Gap 9 (6-14) Blood Urea Nitrogen 69mg/dL (7-20) Creatinine 1.8mg/dL (0.6-1.0) Estimated GFR (Cockcroft-Gault) 35.5 Glucose Level 71mg/dL (70-99) Calcium Level 9.4mg/dL (8.5-10.1) Test 07/23/16 08:12 07/23/16 11:30 07/23/16 13:01 07/23/16 13:05 Glucose (Fingerstick) 71mg/dL (70-99) 61mg/dL (70-99) 92mg/dL (70-99) Erythrocyte Sedimentation Rate 85 (0-25) Creatine Kinase 354U/L (26-192) Thyroid Stimulating Hormone (TSH) 1.124uIU/mL (0.358-3.74) Microbiology 07/21/16 Blood Culture - Preliminary, Resulted NO GROWTH AFTER 1 DAY Medications Current Medications Sodium Chloride (Iv Sodium Chloride 0.9% 500ml Bag) 500 ml @ 0 mls/hr 1X ONCE IV Last administered on 07/21/16 18:32; Start 07/21/16 at 17:45; Stop at 17:46; Status DC Lorazepam (Ativan) 2 mg STK-MED ONCE .ROUTE ; Start 07/21/16 at 19:13; Stop at 19:14; Status DC Ondansetron HCl (Zofran) 4 mg PRN Q8HRS PRN IV NAUSEA/VOMITING; Start 07/21/16 at 19:15; Stop 07/22/16 at 19:14; Status DC Fentanyl Citrate (Fentanyl 2ml Vial) 50 mcg PRN Q1HR PRN IV PAIN Last administered on 07/22/16 19:08; Start 07/21/16 at 19:15; Stop 07/22/16 at 19:14 ; Status DC Acetaminophen (Tylenol) 650 mg PRN Q4HRS PRN PO FEVER; Start 07/21/16 at 19:15 ; Stop 07/22/16 at 19:14; Status DC Albuterol/ Ipratropium (Duoneb) 3 ml RTQID NEB Last administered on 07/22/16 07:42; Start 07/21/16 at 20:00; Stop 07/22/16 at 08:40; Status DC Lorazepam (Ativan) 2 mg 1X ONCE IV Last administered on 07/21/16 19:19; Start 07/21/16 at 19:15; Stop 07/21/16 at 19:17; Status DC Lorazepam (Ativan) 2 mg 1X ONCE IV ; Start 07/21/16 at 23:55; Stop 07/21/16 at 23:56; Status DC Albuterol Sulfate (Ventolin Neb Soln) 2.5 mg PRN Q4HRS PRN NEB SHORTNESS OF BREATH; Start 07/22/16 at 08:30 Alprazolam (Xanax) 0.5 mg PRN BID PRN PO ANXIETY / AGITATION; Start 07/22/16 at 08:30 Amlodipine Besylate (Norvasc) 10 mg BID PO Last administered on 07/22/16 10:06 ; Start 07/22/16 at 09:00 Aspirin (Children'S Aspirin) 81 mg DAILYWBKFT PO Last administered on 10:06; Start 07/22/16 at 09:00 Atorvastatin Calcium (Lipitor) 20 mg HS PO ; Start 07/22/16 at 21:00 Carvedilol (Coreg) 6.25 mg BIDWMEALS PO Last administered on 07/22/16 18:25; Start 07/22/16 at 09:00 Carvedilol (Coreg) 12.5 mg BIDWMEALS PO ; Start 07/22/16 at 17:00; Status UNV Clopidogrel Bisulfate (Plavix) 75 mg DAILYWBKFT PO Last administered on 10:05; Start 07/22/16 at 09:00 Diltiazem HCl (Cardizem 24hr Cd) 180 mg DAILY PO ; Start 07/22/16 at 09:00 Acetaminophen/ Hydrocodone Bitart (Lortab 7.5/325) 1 tab PRN TID PRN PO PAIN Last administered on 07/23/16 06:19; Start 07/22/16 at 08:30 Insulin Aspart (Novolog) 15 units TIDAC SQ Last administered on 07/22/16 18:33 ; Start 07/22/16 at 09:00 Insulin Detemir (Levemir) 45 units QHS SQ ; Start 07/22/16 at 21:00 Albuterol/ Ipratropium (Duoneb) 3 ml RTQID NEB Last administered on 07/23/16 11 :42; Start 07/22/16 at 12:00 Lisinopril (Prinivil) 2.5 mg DAILY PO Last administered on 07/22/16 10:04; Start 07/22/16 at 09:00 Ondansetron HCl (Zofran Odt) 4 mg PRN Q8HRS PRN PO NAUSEA/VOMITING; Start 07/22 at 08:30 Sodium Chloride (Saline Mist Nasal) 1 chad PRN Q1HR PRN NS NASAL CONGESTION; Start 07/22/16 at 08:30 Spironolactone (Aldactone) 25 mg DAILY PO ; Start 07/22/16 at 09:00; Stop at 09:00; Status DC Non-Formulary Medication 2 puff PRN Q4-6HRS IH ; Start 07/22/16 at 08:30; Status UNV Bumetanide (Bumex) 2 mg BID94 PO Last administered on 07/22/16 18:25; Start at 09:00 Budesonide (Pulmicort) 0.5 mg RTBID NEB Last administered on 07/23/16 11:43; Start 07/22/16 at 09:00 Non-Formulary Medication 1 puff DAILY IH ; Start 07/22/16 at 09:00; Status UNV Clozapine (Clozaril) 100 mg DAILY PO ; Start 07/22/16 at 09:00 Furosemide (Lasix) 40 mg 1X ONCE IVP Last administered on 07/22/16 10:03; Start 07/22/16 at 08:45; Stop 07/22/16 at 08:46; Status DC Lorazepam (Ativan) 2 mg 1X ONCE IV Last administered on 2/28/17at 11:32; Start 07/22/16 at 12:00; Stop 07/22/16 at 12:01; Status DC Lorazepam (Ativan) 2 mg 1X ONCE IV ; Start 07/22/16 at 14:30; Stop 07/22/16 at 14:31; Status DC Diphenhydramine HCl (Benadryl) 25 mg PRN QHS PRN PO INSOMNIA; Start 07/23/16 at 03:15 Active Scripts Active Duoneb 0.5-3(2.5) Mg/3 Ml (Albuterol/Ipratropium) 3 Ml Ampul.neb 3 Ml NEB RTQID Amlodipine Besylate 10 Mg Tablet 10 Mg PO BID 30 Days Diltiazem 24Hr Cd (Diltiazem HCl) 180 Mg Cap.er.24h 180 Mg PO DAILY 30 Days Clopidogrel (Clopidogrel Bisulfate) 75 Mg Tablet 75 Mg PO DAILYWBKFT 30 Days Saline Mist (Sodium Chloride) 45 Ml [place]ale 1 Chad NS PRN Q1HR PRN 30 Days Carvedilol 12.5 Mg Tablet 12.5 Mg PO BIDWMEALS 30 Days Children's Aspirin (Aspirin) 81 Mg Tab.chew 81 Mg PO DAILYWBKFT 30 Days Novolog Flexpen (Insulin Aspart) 100 Unit/1 Ml Insuln.pen 15 Units SQ TIDAC Levemir Flextouch (Insulin Detemir) 100 Unit/1 Ml Insuln.pen 45 Units SQ QHS Cyclobenzaprine Hcl 10 Mg Tablet 10 Mg PO PRN TID PRN Hydrocodone-Apap 7.5-325 (Hydrocodone Bit/Acetaminophen) 1 Each Tablet 1-2 Tab PO PRN TID PRN Ventolin Hfa Inhaler (Albuterol Sulfate) 18 Gm Hfa.aer.ad 2 Puff IH PRN Q4-6HRS Albuterol Sulfate Neb Soln (Albuterol Sulfate) 2.5 Mg/3 Ml Vial.neb 1 Vial NEB PRN Q4HRS Alprazolam 0.5 Mg Tablet 0.5 Mg PO BID PRN Reported Lisinopril 2.5 Mg Tablet 2.5 Mg PO DAILY Carvedilol 6.25 Mg Tablet 6.25 Mg PO BIDWMEALS Ondansetron Odt (Ondansetron) 4 Mg Tab.rapdis 4 Mg PO Q8HRS PRN Breo Ellipta 100-25 Mcg Inh (Fluticasone/Vilanterol) 1 Each Aer.pow.ba 1 Puff IH DAILY Lipitor (Atorvastatin Calcium) 20 Mg Tablet 20 Mg PO HS Advair 250-50 Diskus (Fluticasone/Salmeterol) 1 Each Disk.w.dev 2 Puff INH BID Bumetanide 2 Mg Tablet 2 Mg PO BID Spironolactone 25 Mg Tablet 25 Mg PO DAILY Vitals/I & O Vital Sign - Last 24 Hours 07/22/16 07/22/16 07/22/16 07/22/16 15:35 18:25 19:00 20:00 Pulse 64 79 Resp 16 B/P 114/70 102/59 Pulse Ox 89 O2 Delivery Nasal Cannula Nasal Cannula Nasal Cannula O2 Flow Rate 2.0 3.0 3.0 07/22/16 07/22/16 07/22/16 07/22/16 20:03 20:03 21:00 23:15 Temp 97.6 97.6 Pulse 79 77 Resp 22 B/P 102/59 94/60 Pulse Ox 100 100 100 O2 Delivery Nasal Cannula Nasal Cannula Nasal Cannula O2 Flow Rate 2.0 2.0 3.0 07/23/16 07/23/16 07/23/16 07/23/16 02:15 07:00 07:45 08:00 Temp 96.8 96.2 96.8 96.2 Pulse 86 87 87 Resp 22 20 18 B/P 98/61 93/52 93/52 Pulse Ox 97 93 93 O2 Delivery Nasal Cannula Nasal Cannula Nasal Cannula O2 Flow Rate 3.0 3.0 3.0 07/23/16 07/23/16 07/23/16 07/23/16 08:00 08:41 08:41 08:41 Pulse 87 87 87 B/P 93/52 93/52 93/52 O2 Delivery Nasal Cannula O2 Flow Rate 3.0 07/23/16 07/23/16 11:00 11:44 Temp 96.7 96.7 Pulse 64 Resp 20 B/P 94/48 Pulse Ox 97 100 O2 Delivery Nasal Cannula Nasal Cannula O2 Flow Rate 3.0 3.0 Intake and Output 07/22/16 07/22/16 07/23/16 15:00 23:00 07:00 Intake Total 100 ml Output Total 800 ml Balance 100 ml -800 ml Torsten SINGLETARY MD Jul 23, 2016 15:42
--- NOTE | 2016-07-23 16:36 | RAD ---
CT of the head without contrast, 07/23/2016: History: Altered mental status Comparison is made to a study from 06/19/2014. The ventricles are within normal limits in size. There is no shift of the midline structures. There is no evidence of acute intracranial hemorrhage or mass effect. IMPRESSION: No acute intracranial abnormality is detected. PQRS Compliance Statement: One or more of the following individualized dose reduction techniques were utilized for this examination: 1. Automated exposure control 2. Adjustment of the mA and/or kV according to patient size 3. Use of iterative reconstruction technique
[2016-07-23 19:06] VITALS: BP 98/53
[2016-07-23] MEDS: ATORVASTATIN CALCIUM 20 MG TABLET PO SCH (19:53)
[2016-07-23] MEDS: INSULIN DETEMIR 300 UNITS/3 ML INSULN.PEN. SQ SCH (21:06)
[2016-07-23 22:00] VITALS: BP 100/67
[2016-07-24] VITALS (11 sets, daily range): BP systolic 69–115; BP diastolic 41–75
[2016-07-24 06:55] LABS: BASO % 0 % (0-3); EOS % 0 % (0-3); HEMATOCRIT 28.6 % (36.0-47.0); HEMOGLOBIN 8.9 g/dL (12.0-15.5); LYMPH % 9 % (24-48); MEAN CORPUSCULAR HEMOGLOBIN 24 pg (25-35); MEAN CORPUSCULAR HGB CONC 31 g/dL (31-37); MEAN CORPUSCULAR VOLUME 76 fL (79-100); MONO % 11 % (0-9); NEUT % 80 % (31-73); PLATELET COUNT 349 x10^3/uL (140-400); RED BLOOD COUNT 3.76 x10^6/uL (3.50-5.40); RED CELL DISTRIBUTION WIDTH 20.1 % (11.5-14.5); WHITE BLOOD COUNT 12.1 x10^3/uL (4.0-11.0)
[2016-07-24 07:11] LABS: ALBUMIN 2.8 g/dL (3.4-5.0); ALBUMIN/GLOBULIN RATIO 0.6 (1.0-1.7); CALCIUM 9.4 mg/dL (8.5-10.1); CREATININE 2.1 mg/dL (0.6-1.0); GFR 29.7; TOTAL BILIRUBIN 2.5 mg/dL (0.2-1.0); TOTAL PROTEIN 7.6 g/dL (6.4-8.2)
[2016-07-24] MEDS: BUDESONIDE 0.5 MG/2 ML NEBU NEB SCH ×2 (07:28→21:37)
[2016-07-24] MEDS: IPRATRPIUM/ALBUTEROL 0.5/2.5MG 3 ML NEBU. NEB SCH ×4 (07:28→21:37)
[2016-07-24] MEDS: INSULIN ASPART 300 UNITS/3 ML INSULN.PEN SQ SCH ×3 (07:30→16:30)
[2016-07-24] MEDS: CARVEDILOL 6.25 MG TABLET PO SCH ×2 (08:00→16:47)
--- NOTE | 2016-07-24 08:39 | PDOC ---
PROGRESS NOTES Subjective Subjective Patient remains agitated this morning and is refusing having her temperature taken. She states she was restless throughout the night and her muscles are sore this morning. States she believes she was admitted to the hospital for a nosebleed. Per nursing staff, she is continuing to produce red urine. Objective Objective Vital Signs Date Time Temp Pulse Resp B/P Pulse Ox O2 Delivery O2 Flow Rate FiO2 07/24/16 07:34 Nasal Cannula 2.0 07/24/16 07:00 74 24 87/57 95 07/24/16 03:10 97.7 97.7 Intake and Output 07/24/16 07:00 Intake Total 400 ml Balance 400 ml Intake Oral 400 ml # Bowel Movements 4 Assessment Assessment Problems Medical Problems: (1) Altered mental status Status: Acute (2) Myoclonic jerking Status: Acute Comment Review of Relevant I have reviewed the following items mary (where applicable) has been applied. Labs Laboratory Tests Test 07/22/16 09:43 07/22/16 11:47 07/22/16 17:20 07/22/16 18:25 Glucose (Fingerstick) 108mg/dL (70-99) 208mg/dL (70-99) 142mg/dL (70-99) O2 Saturation 87% (92-99) Arterial Blood pH 7.39 (7.35-7.45) Arterial Blood pCO2 at Patient Temp 44mmHg (35-46) Arterial Blood pO2 at Patient Temp 57mmHg (75-108) Arterial Blood HCO3 26mmol/L (21-28) Arterial Blood Base Excess 1mmol/L (-3-3) FiO2 28 Test 07/22/16 21:12 07/23/16 03:50 07/23/16 08:12 07/23/16 11:30 Glucose (Fingerstick) 116mg/dL (70-99) 71mg/dL (70-99) 61mg/dL (70-99) White Blood Count 8.9x10^3/uL (4.0-11.0) Red Blood Count 3.99x10^6/uL (3.50-5.40) Hemoglobin 9.5g/dL (12.0-15.5) Hematocrit 31.3% (36.0-47.0) Mean Corpuscular Volume 78fL (79-100) Mean Corpuscular Hemoglobin 24pg (25-35) Mean Corpuscular Hemoglobin Concent 31g/dL (31-37) Red Cell Distribution Width 20.1% (11.5-14.5) Platelet Count 308x10^3/uL (140-400) Neutrophils (%) (Auto) 83% (31-73) Lymphocytes (%) (Auto) 9% (24-48) Monocytes (%) (Auto) 8% (0-9) Eosinophils (%) (Auto) 0% (0-3) Basophils (%) (Auto) 0% (0-3) Neutrophils # (Auto) 7.4x10^3uL (1.8-7.7) Lymphocytes # (Auto) 0.8x10^3/uL (1.0-4.8) Monocytes # (Auto) 0.7x10^3/uL (0.0-1.1) Eosinophils # (Auto) 0.0x10^3/uL (0.0-0.7) Basophils # (Auto) 0.0x10^3/uL (0.0-0.2) Sodium Level 132mmol/L (136-145) Potassium Level 4.6mmol/L (3.5-5.1) Chloride Level 91mmol/L (98-107) Carbon Dioxide Level 32mmol/L (21-32) Anion Gap 9 (6-14) Blood Urea Nitrogen 69mg/dL (7-20) Creatinine 1.8mg/dL (0.6-1.0) Estimated GFR (Cockcroft-Gault) 35.5 Glucose Level 71mg/dL (70-99) Calcium Level 9.4mg/dL (8.5-10.1) Test 07/23/16 13:01 07/23/16 13:05 07/23/16 16:18 07/23/16 20:53 Glucose (Fingerstick) 92mg/dL (70-99) 146mg/dL (70-99) 167mg/dL (70-99) Erythrocyte Sedimentation Rate 85 (0-25) Creatine Kinase 354U/L (26-192) Vitamin B12 Level 1510pg/mL (247-911) Thyroid Stimulating Hormone (TSH) 1.124uIU/mL (0.358-3.74) Test 07/24/16 06:22 White Blood Count 12.1x10^3/uL (4.0-11.0) Red Blood Count 3.76x10^6/uL (3.50-5.40) Hemoglobin 8.9g/dL (12.0-15.5) Hematocrit 28.6% (36.0-47.0) Mean Corpuscular Volume 76fL (79-100) Mean Corpuscular Hemoglobin 24pg (25-35) Mean Corpuscular Hemoglobin Concent 31g/dL (31-37) Red Cell Distribution Width 20.1% (11.5-14.5) Platelet Count 349x10^3/uL (140-400) Neutrophils (%) (Auto) 80% (31-73) Lymphocytes (%) (Auto) 9% (24-48) Monocytes (%) (Auto) 11% (0-9) Eosinophils (%) (Auto) 0% (0-3) Basophils (%) (Auto) 0% (0-3) Neutrophils # (Auto) 9.7x10^3uL (1.8-7.7) Lymphocytes # (Auto) 1.0x10^3/uL (1.0-4.8) Monocytes # (Auto) 1.3x10^3/uL (0.0-1.1) Eosinophils # (Auto) 0.0x10^3/uL (0.0-0.7) Basophils # (Auto) 0.0x10^3/uL (0.0-0.2) Sodium Level 128mmol/L (136-145) Potassium Level 5.0mmol/L (3.5-5.1) Chloride Level 90mmol/L (98-107) Carbon Dioxide Level 26mmol/L (21-32) Anion Gap 12 (6-14) Blood Urea Nitrogen 80mg/dL (7-20) Creatinine 2.1mg/dL (0.6-1.0) Estimated GFR (Cockcroft-Gault) 29.7 BUN/Creatinine Ratio 38 (6-20) Glucose Level 145mg/dL (70-99) Calcium Level 9.4mg/dL (8.5-10.1) Total Bilirubin 2.5mg/dL (0.2-1.0) Aspartate Amino Transf (AST/SGOT) 47U/L (15-37) Alanine Aminotransferase (ALT/SGPT) 17U/L (14-59) Alkaline Phosphatase 177U/L (46-116) Total Protein 7.6g/dL (6.4-8.2) Albumin 2.8g/dL (3.4-5.0) Albumin/Globulin Ratio 0.6 (1.0-1.7) Laboratory Tests Test 07/23/16 11:30 07/23/16 13:01 07/23/16 13:05 07/23/16 16:18 Glucose (Fingerstick) 61mg/dL (70-99) 92mg/dL (70-99) 146mg/dL (70-99) Erythrocyte Sedimentation Rate 85 (0-25) Creatine Kinase 354U/L (26-192) Vitamin B12 Level 1510pg/mL (247-911) Thyroid Stimulating Hormone (TSH) 1.124uIU/mL (0.358-3.74) Test 07/23/16 20:53 07/24/16 06:22 Glucose (Fingerstick) 167mg/dL (70-99) White Blood Count 12.1x10^3/uL (4.0-11.0) Red Blood Count 3.76x10^6/uL (3.50-5.40) Hemoglobin 8.9g/dL (12.0-15.5) Hematocrit 28.6% (36.0-47.0) Mean Corpuscular Volume 76fL (79-100) Mean Corpuscular Hemoglobin 24pg (25-35) Mean Corpuscular Hemoglobin Concent 31g/dL (31-37) Red Cell Distribution Width 20.1% (11.5-14.5) Platelet Count 349x10^3/uL (140-400) Neutrophils (%) (Auto) 80% (31-73) Lymphocytes (%) (Auto) 9% (24-48) Monocytes (%) (Auto) 11% (0-9) Eosinophils (%) (Auto) 0% (0-3) Basophils (%) (Auto) 0% (0-3) Neutrophils # (Auto) 9.7x10^3uL (1.8-7.7) Lymphocytes # (Auto) 1.0x10^3/uL (1.0-4.8) Monocytes # (Auto) 1.3x10^3/uL (0.0-1.1) Eosinophils # (Auto) 0.0x10^3/uL (0.0-0.7) Basophils # (Auto) 0.0x10^3/uL (0.0-0.2) Sodium Level 128mmol/L (136-145) Potassium Level 5.0mmol/L (3.5-5.1) Chloride Level 90mmol/L (98-107) Carbon Dioxide Level 26mmol/L (21-32) Anion Gap 12 (6-14) Blood Urea Nitrogen 80mg/dL (7-20) Creatinine 2.1mg/dL (0.6-1.0) Estimated GFR (Cockcroft-Gault) 29.7 BUN/Creatinine Ratio 38 (6-20) Glucose Level 145mg/dL (70-99) Calcium Level 9.4mg/dL (8.5-10.1) Total Bilirubin 2.5mg/dL (0.2-1.0) Aspartate Amino Transf (AST/SGOT) 47U/L (15-37) Alanine Aminotransferase (ALT/SGPT) 17U/L (14-59) Alkaline Phosphatase 177U/L (46-116) Total Protein 7.6g/dL (6.4-8.2) Albumin 2.8g/dL (3.4-5.0) Albumin/Globulin Ratio 0.6 (1.0-1.7) Microbiology 07/21/16 Blood Culture - Preliminary, Resulted NO GROWTH AFTER 2 DAYS Medications Current Medications Sodium Chloride (Iv Sodium Chloride 0.9% 500ml Bag) 500 ml @ 0 mls/hr 1X ONCE IV Last administered on 07/21/16t 18:32; Start 07/21/16 at 17:45; Stop at 17:46; Status DC Lorazepam (Ativan) 2 mg STK-MED ONCE .ROUTE ; Start 07/21/16 at 19:13; Stop at 19:14; Status DC Ondansetron HCl (Zofran) 4 mg PRN Q8HRS PRN IV NAUSEA/VOMITING; Start 07/21/16 at 19:15; Stop 07/22/16 at 19:14; Status DC Fentanyl Citrate (Fentanyl 2ml Vial) 50 mcg PRN Q1HR PRN IV PAIN Last administered on 07/22/16 19:08; Start 07/21/16 at 19:15; Stop 07/22/16 at 19:14 ; Status DC Acetaminophen (Tylenol) 650 mg PRN Q4HRS PRN PO FEVER; Start 07/21/16 at 19:15 ; Stop 07/22/16 at 19:14; Status DC Albuterol/ Ipratropium (Duoneb) 3 ml RTQID NEB Last administered on 07/22/16 07:42; Start 07/21/16 at 20:00; Stop 07/22/16 at 08:40; Status DC Lorazepam (Ativan) 2 mg 1X ONCE IV Last administered on 07/21/16 19:19; Start 07/21/16 at 19:15; Stop 07/21/16 at 19:17; Status DC Lorazepam (Ativan) 2 mg 1X ONCE IV ; Start 07/21/16 at 23:55; Stop 07/21/16 at 23:56; Status DC Albuterol Sulfate (Ventolin Neb Soln) 2.5 mg PRN Q4HRS PRN NEB SHORTNESS OF BREATH; Start 07/22/16 at 08:30 Alprazolam (Xanax) 0.5 mg PRN BID PRN PO ANXIETY / AGITATION Last administered on 07/24/16 00:46; Start 07/22/16 at 08:30 Amlodipine Besylate (Norvasc) 10 mg BID PO Last administered on 07/22/16 10:06 ; Start 07/22/16 at 09:00 Aspirin (Children'S Aspirin) 81 mg DAILYWBKFT PO Last administered on 10:06; Start 07/22/16 at 09:00 Atorvastatin Calcium (Lipitor) 20 mg HS PO ; Start 07/22/16 at 21:00 Carvedilol (Coreg) 6.25 mg BIDWMEALS PO Last administered on 07/22/16 18:25; Start 07/22/16 at 09:00 Carvedilol (Coreg) 12.5 mg BIDWMEALS PO ; Start 07/22/16 at 17:00; Status UNV Clopidogrel Bisulfate (Plavix) 75 mg DAILYWBKFT PO Last administered on 10:05; Start 07/22/16 at 09:00 Diltiazem HCl (Cardizem 24hr Cd) 180 mg DAILY PO ; Start 07/22/16 at 09:00 Acetaminophen/ Hydrocodone Bitart (Lortab 7.5/325) 1 tab PRN TID PRN PO PAIN Last administered on 07/23/16 06:19; Start 07/22/16 at 08:30 Insulin Aspart (Novolog) 15 units TIDAC SQ Last administered on 07/22/16 18:33 ; Start 07/22/16 at 09:00 Insulin Detemir (Levemir) 45 units QHS SQ Last administered on 07/23/16 21:06; Start 07/22/16 at 21:00 Albuterol/ Ipratropium (Duoneb) 3 ml RTQID NEB Last administered on 07/24/16 07 :28; Start 07/22/16 at 12:00 Lisinopril (Prinivil) 2.5 mg DAILY PO Last administered on 07/22/16 10:04; Start 07/22/16 at 09:00 Ondansetron HCl (Zofran Odt) 4 mg PRN Q8HRS PRN PO NAUSEA/VOMITING; Start 07/22 at 08:30 Sodium Chloride (Saline Mist Nasal) 1 chad PRN Q1HR PRN NS NASAL CONGESTION; Start 07/22/16 at 08:30 Spironolactone (Aldactone) 25 mg DAILY PO ; Start 07/22/16 at 09:00; Stop at 09:00; Status DC Non-Formulary Medication 2 puff PRN Q4-6HRS IH ; Start 07/22/16 at 08:30; Status UNV Bumetanide (Bumex) 2 mg BID94 PO Last administered on 07/22/16 18:25; Start at 09:00 Budesonide (Pulmicort) 0.5 mg RTBID NEB Last administered on 07/24/16 07:28; Start 07/22/16 at 09:00 Non-Formulary Medication 1 puff DAILY IH ; Start 07/22/16 at 09:00; Status UNV Clozapine (Clozaril) 100 mg DAILY PO ; Start 07/22/16 at 09:00 Furosemide (Lasix) 40 mg 1X ONCE IVP Last administered on 07/22/16 10:03; Start 07/22/16 at 08:45; Stop 07/22/16 at 08:46; Status DC Lorazepam (Ativan) 2 mg 1X ONCE IV Last administered on 07/22/16 11:32; Start 07/22/16 at 12:00; Stop 07/22/16 at 12:01; Status DC Lorazepam (Ativan) 2 mg 1X ONCE IV ; Start 07/22/16 at 14:30; Stop 07/22/16 at 14:31; Status DC Diphenhydramine HCl (Benadryl) 25 mg PRN QHS PRN PO INSOMNIA Last administered on 07/24/16 00:46; Start 07/23/16 at 03:15 Active Scripts Active Duoneb 0.5-3(2.5) Mg/3 Ml (Albuterol/Ipratropium) 3 Ml Ampul.neb 3 Ml NEB RTQID Amlodipine Besylate 10 Mg Tablet 10 Mg PO BID 30 Days Diltiazem 24Hr Cd (Diltiazem HCl) 180 Mg Cap.er.24h 180 Mg PO DAILY 30 Days Clopidogrel (Clopidogrel Bisulfate) 75 Mg Tablet 75 Mg PO DAILYWBKFT 30 Days Saline Mist (Sodium Chloride) 45 Ml [place] 1 [place] NS PRN Q1HR PRN 30 Days Carvedilol 12.5 Mg Tablet 12.5 Mg PO BIDWMEALS 30 Days Children's Aspirin (Aspirin) 81 Mg Tab.chew 81 Mg PO DAILYWBKFT 30 Days Novolog Flexpen (Insulin Aspart) 100 Unit/1 Ml Insuln.pen 15 Units SQ TIDAC Levemir Flextouch (Insulin Detemir) 100 Unit/1 Ml Insuln.pen 45 Units SQ QHS Cyclobenzaprine Hcl 10 Mg Tablet 10 Mg PO PRN TID PRN Hydrocodone-Apap 7.5-325 (Hydrocodone Bit/Acetaminophen) 1 Each Tablet 1-2 Tab PO PRN TID PRN Ventolin Hfa Inhaler (Albuterol Sulfate) 18 Gm Hfa.aer.ad 2 Puff IH PRN Q4-6HRS Albuterol Sulfate Neb Soln (Albuterol Sulfate) 2.5 Mg/3 Ml Vial.neb 1 Vial NEB PRN Q4HRS Alprazolam 0.5 Mg Tablet 0.5 Mg PO BID PRN Reported Lisinopril 2.5 Mg Tablet 2.5 Mg PO DAILY Carvedilol 6.25 Mg Tablet 6.25 Mg PO BIDWMEALS Ondansetron Odt (Ondansetron) 4 Mg Tab.rapdis 4 Mg PO Q8HRS PRN Breo Ellipta 100-25 Mcg Inh (Fluticasone/Vilanterol) 1 Each Aer.pow.ba 1 Puff IH DAILY Lipitor (Atorvastatin Calcium) 20 Mg Tablet 20 Mg PO HS Advair 250-50 Diskus (Fluticasone/Salmeterol) 1 Each Disk.w.dev 2 Puff INH BID Bumetanide 2 Mg Tablet 2 Mg PO BID Spironolactone 25 Mg Tablet 25 Mg PO DAILY Vitals/I & O Vital Sign - Last 24 Hours 07/23/16 07/23/16 07/23/16 07/23/16 08:41 08:41 08:41 11:00 Temp 96.7 96.7 Pulse 87 87 87 64 Resp 20 B/P 93/52 93/52 93/52 94/48 Pulse Ox 97 O2 Delivery Nasal Cannula O2 Flow Rate 3.0 07/23/16 07/23/16 07/23/16 07/23/16 11:44 15:00 16:11 19:06 Temp 97.5 97.7 97.5 97.7 Pulse 81 105 Resp 20 16 B/P 94/55 98/53 Pulse Ox 100 92 94 94 O2 Delivery Nasal Cannula Nasal Cannula Nasal Cannula BiPAP/CPAP O2 Flow Rate 3.0 2.0 2.0 2.0 07/23/16 07/23/16 07/23/16 07/24/16 19:41 20:00 22:00 03:10 Temp 98.1 97.7 98.1 97.7 Pulse 96 99 Resp 18 18 B/P 100/67 115/63 Pulse Ox 95 91 95 O2 Delivery Nasal Cannula Nasal Cannula Nasal Cannula Nasal Cannula O2 Flow Rate 2.0 3.0 2.0 2.0 07/24/16 07/24/16 07:00 07:34 Pulse 74 Resp 24 B/P 87/57 Pulse Ox 95 O2 Delivery Nasal Cannula Nasal Cannula O2 Flow Rate 2.0 2.0 Intake and Output 07/23/16 07/23/16 07/24/16 15:00 23:00 07:00 Intake Total 300 ml 100 ml Balance 300 ml 100 ml Torsten SINGLETARY MD Jul 24, 2016 08:39
[2016-07-24] MEDS: AMLODIPINE BESYLATE 10 MG TABLET PO SCH ×2 (09:00→21:00)
[2016-07-24] MEDS: LISINOPRIL 2.5 MG TABLET PO SCH (09:00)
[2016-07-24] MEDS: DILTIAZEM HCL 180 MG CAP.ER.24H PO SCH (09:00)
[2016-07-24] MEDS: BUMETANIDE 1 MG TABLET PO SCH ×2 (09:07→16:00)
[2016-07-24] MEDS: ASPIRIN 81 MG TAB.CHEW PO SCH (09:07)
[2016-07-24] MEDS: CLOZAPINE 100 MG TABLET PO SCH (09:07)
[2016-07-24] MEDS: CLOPIDOGREL BISULFATE 75 MG TABLET PO SCH (09:07)
[2016-07-24 11:18] LABS: % SAT IRON 4 % (15-34); IRON,SERUM 19 ug/dL (50-170)
[2016-07-24] MEDS: AMOXICILLIN/K CLAV 875/125MG TABLET. PO SCH ×2 (11:47→21:00)
[2016-07-24] MEDS ORDERED: SODIUM BICARB ADULT 8.4% 50 MEQ/50 ML DISP.SYRIN. ONE ×2 (12:00→21:00)
[2016-07-24] MEDS ORDERED: EPINEPHRINE 30 MG/30 ML VIAL. ONE (12:00)
[2016-07-24] MEDS ORDERED: EPINEPHRINE 1 MG/10 ML DISP.SYRIN. ONE (12:00)
[2016-07-24] MEDS ORDERED: CALCIUM CHLORIDE 1,000 MG/10 ML DISP.SYRIN IV ONE (12:00)
[2016-07-24] MEDS ORDERED: DOPAMINE 400MG/250ML PREMIX BAG. IV ONE (12:00)
--- NOTE | 2016-07-24 12:06 | PDOC2 ---
SHEA KIRBY Nilsa PROMOTIONS EXECUTIVE 07/24/16 1206: UROLOGY CONSULT Date of Admission DATE: 07/24/16 TIME: 11:57 Reason for Consult: Urine retention, nursing staff reporting very "dark, red/brown urine" that is slowly clearing up. Gallegos was placed at 3 am for urine retention Problems: (1) Gallegos catheter in place (2) Urine retention HISTORY OF KIDNEY PROBLEMS: No HISTORY OF INCONTINENCE: Yes HISTORY FREQUENCY/NOCTURIA: Yes Chief Complaint Urine retention, gallegos catheter in place Source: Caregiver Reason for Visit: Patient was admitted for altered mental status, urine retention Patient was admitted for altered mental status and urine retention. She had been having a lot of trouble urinating yesterday evening and then finally order was given for a gallegos catheter which was placed around 3 am on 07/24/16 ROS Patient seen and examined, ROS unable to be obtained for the following reason: Pt is not answering CONTRACT ADMINISTRATOR's questions, groans occasionally. Per nursing staff, pt has extensive psychiatric issues and this is her "norm" Current Medications Current Medications Sodium Chloride (Iv Sodium Chloride 0.9% 500ml Bag) 500 ml @ 0 mls/hr 1X ONCE IV Last administered on 07/21/16 18:32; Start 07/21/16 at 17:45; Stop at 17:46; Status DC Lorazepam (Ativan) 2 mg STK-MED ONCE .ROUTE ; Start 07/21/16 at 19:13; Stop at 19:14; Status DC Ondansetron HCl (Zofran) 4 mg PRN Q8HRS PRN IV NAUSEA/VOMITING; Start 07/21/16 at 19:15; Stop 07/22/16 at 19:14; Status DC Fentanyl Citrate (Fentanyl 2ml Vial) 50 mcg PRN Q1HR PRN IV PAIN Last administered on 07/22/16 19:08; Start 07/21/16 at 19:15; Stop 07/22/16 at 19:14 ; Status DC Acetaminophen (Tylenol) 650 mg PRN Q4HRS PRN PO FEVER; Start 07/21/16 at 19:15 ; Stop 07/22/16 at 19:14; Status DC Albuterol/ Ipratropium (Duoneb) 3 ml RTQID NEB Last administered on 07/22/16 07:42; Start 07/21/16 at 20:00; Stop 07/22/16 at 08:40; Status DC Lorazepam (Ativan) 2 mg 1X ONCE IV Last administered on 07/21/16 19:19; Start 07/21/16 at 19:15; Stop 07/21/16 at 19:17; Status DC Lorazepam (Ativan) 2 mg 1X ONCE IV ; Start 07/21/16 at 23:55; Stop 07/21/16 at 23:56; Status DC Albuterol Sulfate (Ventolin Neb Soln) 2.5 mg PRN Q4HRS PRN NEB SHORTNESS OF BREATH; Start 07/22/16 at 08:30 Alprazolam (Xanax) 0.5 mg PRN BID PRN PO ANXIETY / AGITATION Last administered on 07/24/16 00:46; Start 07/22/16 at 08:30 Amlodipine Besylate (Norvasc) 10 mg BID PO Last administered on 07/22/16 10:06 ; Start 07/22/16 at 09:00 Aspirin (Children'S Aspirin) 81 mg DAILYWBKFT PO Last administered on 07/24/16 09:07; Start 07/22/16 at 09:00 Atorvastatin Calcium (Lipitor) 20 mg HS PO ; Start 07/22/16 at 21:00 Carvedilol (Coreg) 6.25 mg BIDWMEALS PO Last administered on 07/22/16 18:25; Start 07/22/16 at 09:00 Carvedilol (Coreg) 12.5 mg BIDWMEALS PO ; Start 07/22/16 at 17:00; Status UNV Clopidogrel Bisulfate (Plavix) 75 mg DAILYWBKFT PO Last administered on 09:07; Start 07/22/16 at 09:00 Diltiazem HCl (Cardizem 24hr Cd) 180 mg DAILY PO ; Start 07/22/16 at 09:00 Acetaminophen/ Hydrocodone Bitart (Lortab 7.5/325) 1 tab PRN TID PRN PO PAIN Last administered on 07/23/16 06:19; Start 07/22/16 at 08:30 Insulin Aspart (Novolog) 15 units TIDAC SQ Last administered on 07/22/16 18:33 ; Start 07/22/16 at 09:00 Insulin Detemir (Levemir) 45 units QHS SQ Last administered on 07/23/16 21:06; Start 07/22/16 at 21:00 Albuterol/ Ipratropium (Duoneb) 3 ml RTQID NEB Last administered on 07/24/16 11 :26; Start 07/22/16 at 12:00 Lisinopril (Prinivil) 2.5 mg DAILY PO Last administered on 07/22/16 10:04; Start 07/22/16 at 09:00 Ondansetron HCl (Zofran Odt) 4 mg PRN Q8HRS PRN PO NAUSEA/VOMITING; Start 07/22 at 08:30 Sodium Chloride (Saline Mist Nasal) 1 chad PRN Q1HR PRN NS NASAL CONGESTION; Start 07/22/16 at 08:30 Spironolactone (Aldactone) 25 mg DAILY PO ; Start 07/22/16 at 09:00; Stop at 09:00; Status DC Non-Formulary Medication 2 puff PRN Q4-6HRS IH ; Start 07/22/16 at 08:30; Status UNV Bumetanide (Bumex) 2 mg BID94 PO Last administered on 07/24/16 09:07; Start at 09:00 Budesonide (Pulmicort) 0.5 mg RTBID NEB Last administered on 07/24/16 07:28; Start 07/22/16 at 09:00 Non-Formulary Medication 1 puff DAILY IH ; Start 07/22/16 at 09:00; Status UNV Clozapine (Clozaril) 100 mg DAILY PO Last administered on 07/24/16 09:07; Start 07/22/16 at 09:00 Furosemide (Lasix) 40 mg 1X ONCE IVP Last administered on 07/22/16 10:03; Start 07/22/16 at 08:45; Stop 07/22/16 at 08:46; Status DC Lorazepam (Ativan) 2 mg 1X ONCE IV Last administered on 07/22/16 11:32; Start 07/22/16 at 12:00; Stop 07/22/16 at 12:01; Status DC Lorazepam (Ativan) 2 mg 1X ONCE IV ; Start 07/22/16 at 14:30; Stop 07/22/16 at 14:31; Status DC Diphenhydramine HCl (Benadryl) 25 mg PRN QHS PRN PO INSOMNIA Last administered on 07/24/16 00:46; Start 07/23/16 at 03:15 Tamsulosin HCl (Flomax) 0.4 mg QHS PO ; Start 07/24/16 at 21:00 Amoxicillin/ Clavulanate Potassium (Augmentin 875/ 125mg) 1 tab BID PO Last administered on 07/24/16 11:47; Start 07/24/16 at 10:00 Active Scripts Active Duoneb 0.5-3(2.5) Mg/3 Ml (Albuterol/Ipratropium) 3 Ml Ampul.neb 3 Ml NEB RTQID Amlodipine Besylate 10 Mg Tablet 10 Mg PO BID 30 Days Diltiazem 24Hr Cd (Diltiazem HCl) 180 Mg Cap.er.24h 180 Mg PO DAILY 30 Days Clopidogrel (Clopidogrel Bisulfate) 75 Mg Tablet 75 Mg PO DAILYWBKFT 30 Days Saline Mist (Sodium Chloride) 45 Ml [place] 1 Chad NS PRN Q1HR PRN 30 Days Carvedilol 12.5 Mg Tablet 12.5 Mg PO BIDWMEALS 30 Days Children's Aspirin (Aspirin) 81 Mg Tab.chew 81 Mg PO DAILYWBKFT 30 Days Novolog Flexpen (Insulin Aspart) 100 Unit/1 Ml Insuln.pen 15 Units SQ TIDAC Levemir Flextouch (Insulin Detemir) 100 Unit/1 Ml Insuln.pen 45 Units SQ QHS Cyclobenzaprine Hcl 10 Mg Tablet 10 Mg PO PRN TID PRN Hydrocodone-Apap 7.5-325 (Hydrocodone Bit/Acetaminophen) 1 Each Tablet 1-2 Tab PO PRN TID PRN Ventolin Hfa Inhaler (Albuterol Sulfate) 18 Gm Hfa.aer.ad 2 Puff IH PRN Q4-6HRS Albuterol Sulfate Neb Soln (Albuterol Sulfate) 2.5 Mg/3 Ml Vial.neb 1 Vial NEB PRN Q4HRS Alprazolam 0.5 Mg Tablet 0.5 Mg PO BID PRN Reported Lisinopril 2.5 Mg Tablet 2.5 Mg PO DAILY Carvedilol 6.25 Mg Tablet 6.25 Mg PO BIDWMEALS Ondansetron Odt (Ondansetron) 4 Mg Tab.rapdis 4 Mg PO Q8HRS PRN Breo Ellipta 100-25 Mcg Inh (Fluticasone/Vilanterol) 1 Each Aer.pow.ba 1 Puff IH DAILY Lipitor (Atorvastatin Calcium) 20 Mg Tablet 20 Mg PO HS Advair 250-50 Diskus (Fluticasone/Salmeterol) 1 Each Disk.w.dev 2 Puff INH BID Bumetanide 2 Mg Tablet 2 Mg PO BID Spironolactone 25 Mg Tablet 25 Mg PO DAILY Allergies: Coded Allergies: adhesive (Verified Allergy, Intermediate, rash, 09/18/15) metformin (Verified Allergy, Intermediate, rash, 04/15/16) Physical Examination GEN: NAD HEENT: OP clear RESP: CTAB without wheezing, rhonchi, or crackles ABD: NABS, SNT/ND, Obese : No CVA tenderness, gallegos catheter in place draining dark, but clear yellow urine. Perineal area clean with no excoriation or feces present;depends in place. No obvious blood visible EXT: No edema NEURO: Unable to properly assess. Pt not answering questions, groans occasionally VITALS Vital Signs Date Time Temp Pulse Resp B/P Pulse Ox O2 Delivery O2 Flow Rate FiO2 07/24/16 11:31 95 Nasal Cannula 2.0 07/24/16 11:00 97.5 92 22 98/75 97.5 Labs Laboratory Tests Test 07/22/16 17:20 07/22/16 18:25 07/22/16 21:12 07/23/16 03:50 Glucose (Fingerstick) 142mg/dL (70-99) 116mg/dL (70-99) O2 Saturation 87% (92-99) Arterial Blood pH 7.39 (7.35-7.45) Arterial Blood pCO2 at Patient Temp 44mmHg (35-46) Arterial Blood pO2 at Patient Temp 57mmHg (75-108) Arterial Blood HCO3 26mmol/L (21-28) Arterial Blood Base Excess 1mmol/L (-3-3) FiO2 28 White Blood Count 8.9x10^3/uL (4.0-11.0) Red Blood Count 3.99x10^6/uL (3.50-5.40) Hemoglobin 9.5g/dL (12.0-15.5) Hematocrit 31.3% (36.0-47.0) Mean Corpuscular Volume 78fL (79-100) Mean Corpuscular Hemoglobin 24pg (25-35) Mean Corpuscular Hemoglobin Concent 31g/dL (31-37) Red Cell Distribution Width 20.1% (11.5-14.5) Platelet Count 308x10^3/uL (140-400) Neutrophils (%) (Auto) 83% (31-73) Lymphocytes (%) (Auto) 9% (24-48) Monocytes (%) (Auto) 8% (0-9) Eosinophils (%) (Auto) 0% (0-3) Basophils (%) (Auto) 0% (0-3) Neutrophils # (Auto) 7.4x10^3uL (1.8-7.7) Lymphocytes # (Auto) 0.8x10^3/uL (1.0-4.8) Monocytes # (Auto) 0.7x10^3/uL (0.0-1.1) Eosinophils # (Auto) 0.0x10^3/uL (0.0-0.7) Basophils # (Auto) 0.0x10^3/uL (0.0-0.2) Sodium Level 132mmol/L (136-145) Potassium Level 4.6mmol/L (3.5-5.1) Chloride Level 91mmol/L (98-107) Carbon Dioxide Level 32mmol/L (21-32) Anion Gap 9 (6-14) Blood Urea Nitrogen 69mg/dL (7-20) Creatinine 1.8mg/dL (0.6-1.0) Estimated GFR (Cockcroft-Gault) 35.5 Glucose Level 71mg/dL (70-99) Calcium Level 9.4mg/dL (8.5-10.1) Test 07/23/16 08:12 07/23/16 11:30 07/23/16 13:01 07/23/16 13:05 Glucose (Fingerstick) 71mg/dL (70-99) 61mg/dL (70-99) 92mg/dL (70-99) Erythrocyte Sedimentation Rate 85 (0-25) Creatine Kinase 354U/L (26-192) Vitamin B12 Level 1510pg/mL (247-911) Thyroid Stimulating Hormone (TSH) 1.124uIU/mL (0.358-3.74) Test 07/23/16 16:18 07/23/16 20:53 07/24/16 06:22 07/24/16 09:10 Glucose (Fingerstick) 146mg/dL (70-99) 167mg/dL (70-99) 158mg/dL (70-99) White Blood Count 12.1x10^3/uL (4.0-11.0) Red Blood Count 3.76x10^6/uL (3.50-5.40) Hemoglobin 8.9g/dL (12.0-15.5) Hematocrit 28.6% (36.0-47.0) Mean Corpuscular Volume 76fL (79-100) Mean Corpuscular Hemoglobin 24pg (25-35) Mean Corpuscular Hemoglobin Concent 31g/dL (31-37) Red Cell Distribution Width 20.1% (11.5-14.5) Platelet Count 349x10^3/uL (140-400) Neutrophils (%) (Auto) 80% (31-73) Lymphocytes (%) (Auto) 9% (24-48) Monocytes (%) (Auto) 11% (0-9) Eosinophils (%) (Auto) 0% (0-3) Basophils (%) (Auto) 0% (0-3) Neutrophils # (Auto) 9.7x10^3uL (1.8-7.7) Lymphocytes # (Auto) 1.0x10^3/uL (1.0-4.8) Monocytes # (Auto) 1.3x10^3/uL (0.0-1.1) Eosinophils # (Auto) 0.0x10^3/uL (0.0-0.7) Basophils # (Auto) 0.0x10^3/uL (0.0-0.2) Sodium Level 128mmol/L (136-145) Potassium Level 5.0mmol/L (3.5-5.1) Chloride Level 90mmol/L (98-107) Carbon Dioxide Level 26mmol/L (21-32) Anion Gap 12 (6-14) Blood Urea Nitrogen 80mg/dL (7-20) Creatinine 2.1mg/dL (0.6-1.0) Estimated GFR (Cockcroft-Gault) 29.7 BUN/Creatinine Ratio 38 (6-20) Glucose Level 145mg/dL (70-99) Calcium Level 9.4mg/dL (8.5-10.1) Total Bilirubin 2.5mg/dL (0.2-1.0) Aspartate Amino Transf (AST/SGOT) 47U/L (15-37) Alanine Aminotransferase (ALT/SGPT) 17U/L (14-59) Alkaline Phosphatase 177U/L (46-116) Total Protein 7.6g/dL (6.4-8.2) Albumin 2.8g/dL (3.4-5.0) Albumin/Globulin Ratio 0.6 (1.0-1.7) Test 07/24/16 09:55 Iron Level 19ug/dL (50-170) Total Iron Binding Capacity 449ug/dL (250-450) Iron Saturation 4% (15-34) Ferritin 67ng/mL (8-252) Laboratory Tests Test 07/23/16 13:01 07/23/16 13:05 07/23/16 16:18 07/23/16 20:53 Glucose (Fingerstick) 92mg/dL (70-99) 146mg/dL (70-99) 167mg/dL (70-99) Erythrocyte Sedimentation Rate 85 (0-25) Creatine Kinase 354U/L (26-192) Vitamin B12 Level 1510pg/mL (247-911) Thyroid Stimulating Hormone (TSH) 1.124uIU/mL (0.358-3.74) Test 07/24/16 06:22 07/24/16 09:10 07/24/16 09:55 White Blood Count 12.1x10^3/uL (4.0-11.0) Red Blood Count 3.76x10^6/uL (3.50-5.40) Hemoglobin 8.9g/dL (12.0-15.5) Hematocrit 28.6% (36.0-47.0) Mean Corpuscular Volume 76fL (79-100) Mean Corpuscular Hemoglobin 24pg (25-35) Mean Corpuscular Hemoglobin Concent 31g/dL (31-37) Red Cell Distribution Width 20.1% (11.5-14.5) Platelet Count 349x10^3/uL (140-400) Neutrophils (%) (Auto) 80% (31-73) Lymphocytes (%) (Auto) 9% (24-48) Monocytes (%) (Auto) 11% (0-9) Eosinophils (%) (Auto) 0% (0-3) Basophils (%) (Auto) 0% (0-3) Neutrophils # (Auto) 9.7x10^3uL (1.8-7.7) Lymphocytes # (Auto) 1.0x10^3/uL (1.0-4.8) Monocytes # (Auto) 1.3x10^3/uL (0.0-1.1) Eosinophils # (Auto) 0.0x10^3/uL (0.0-0.7) Basophils # (Auto) 0.0x10^3/uL (0.0-0.2) Sodium Level 128mmol/L (136-145) Potassium Level 5.0mmol/L (3.5-5.1) Chloride Level 90mmol/L (98-107) Carbon Dioxide Level 26mmol/L (21-32) Anion Gap 12 (6-14) Blood Urea Nitrogen 80mg/dL (7-20) Creatinine 2.1mg/dL (0.6-1.0) Estimated GFR (Cockcroft-Gault) 29.7 BUN/Creatinine Ratio 38 (6-20) Glucose Level 145mg/dL (70-99) Calcium Level 9.4mg/dL (8.5-10.1) Total Bilirubin 2.5mg/dL (0.2-1.0) Aspartate Amino Transf (AST/SGOT) 47U/L (15-37) Alanine Aminotransferase (ALT/SGPT) 17U/L (14-59) Alkaline Phosphatase 177U/L (46-116) Total Protein 7.6g/dL (6.4-8.2) Albumin 2.8g/dL (3.4-5.0) Albumin/Globulin Ratio 0.6 (1.0-1.7) Glucose (Fingerstick) 158mg/dL (70-99) Iron Level 19ug/dL (50-170) Total Iron Binding Capacity 449ug/dL (250-450) Iron Saturation 4% (15-34) Ferritin 67ng/mL (8-252) Assessment/Plan Pt is suffering from urine retention secondary to hospitalization for altered mental status and also very dark urine. A UA has been ordered on this patient so we will see how that comes back. [facility] was unable to get a good history on this patient as she would not speak but Urology will continue to follow her for the catheter/urine retention. JOSÉ MIGUEL MENA MD 07/24/16 1256: UROLOGY CONSULT Allergies: Coded Allergies: adhesive (Verified Allergy, Intermediate, rash, 09/18/15) metformin (Verified Allergy, Intermediate, rash, 04/15/16) Assessment/Plan I examined pt. Pt. with 770cc in bladder when gallegos was placed. Urine was neg for RBC and bact on 07/21/16 Plan will be to keep gallegos in place. continue flomax. Consult nephrology if Cr. does not return to normal. F/U with urology GIFTS OFFICER Shea Kirby in 1 week for voiding trial SHEA KIRBY APRN Jul 24, 2016 12:06 JOSÉ MIGUEL MENA MD Jul 24, 2016 12:56
--- NOTE | 2016-07-24 12:42 | PDOC ---
SUBJECTIVE Subjective Pt. with urinary retention OBJECTIVE Objective gallegos in place Vital Signs Vital Signs Date Time Temp Pulse Resp B/P Pulse Ox O2 Delivery O2 Flow Rate FiO2 07/24/16 11:31 95 Nasal Cannula 2.0 07/24/16 11:00 97.5 92 22 98/75 96 Nasal Cannula 2.0 97.5 07/24/16 09:00 74 87/57 07/24/16 09:00 74 87/57 07/24/16 09:00 74 87/57 07/24/16 08:00 Nasal Cannula 3.0 07/24/16 08:00 74 87/57 07/24/16 07:34 Nasal Cannula 2.0 07/24/16 07:00 74 24 87/57 95 Nasal Cannula 2.0 07/24/16 03:10 97.7 99 18 115/63 95 Nasal Cannula 2.0 97.7 07/23/16 22:00 98.1 96 18 100/67 91 Nasal Cannula 2.0 98.1 07/23/16 20:00 Nasal Cannula 3.0 07/23/16 19:41 95 Nasal Cannula 2.0 07/23/16 19:06 97.7 105 16 98/53 94 BiPAP/CPAP 2.0 97.7 07/23/16 16:11 94 Nasal Cannula 2.0 07/23/16 15:00 97.5 81 20 94/55 92 Nasal Cannula 2.0 97.5 I & O Intake and Output 07/24/16 07:00 Intake Total 400 ml Balance 400 ml Intake Oral 400 ml # Bowel Movements 4 PHYSICAL EXAM Physical Exam Urine mayela in tubing UA-neg for RBC and bact on admission ASSESSMENT/PLAN Assessment/Plan gallegos flomax F/U with urology HABITAT CONSERVATION PLANNER Demetria Peters next week for voiding trial Problems: COMMENT Lab Laboratory Tests Test 07/23/16 13:01 07/23/16 13:05 07/23/16 16:18 07/23/16 20:53 Glucose (Fingerstick) 92mg/dL (70-99) 146mg/dL (70-99) 167mg/dL (70-99) Erythrocyte Sedimentation Rate 85 (0-25) Creatine Kinase 354U/L (26-192) Vitamin B12 Level 1510pg/mL (247-911) Thyroid Stimulating Hormone (TSH) 1.124uIU/mL (0.358-3.74) Test 07/24/16 06:22 07/24/16 09:10 07/24/16 09:55 07/24/16 11:50 White Blood Count 12.1x10^3/uL (4.0-11.0) Red Blood Count 3.76x10^6/uL (3.50-5.40) Hemoglobin 8.9g/dL (12.0-15.5) Hematocrit 28.6% (36.0-47.0) Mean Corpuscular Volume 76fL (79-100) Mean Corpuscular Hemoglobin 24pg (25-35) Mean Corpuscular Hemoglobin Concent 31g/dL (31-37) Red Cell Distribution Width 20.1% (11.5-14.5) Platelet Count 349x10^3/uL (140-400) Neutrophils (%) (Auto) 80% (31-73) Lymphocytes (%) (Auto) 9% (24-48) Monocytes (%) (Auto) 11% (0-9) Eosinophils (%) (Auto) 0% (0-3) Basophils (%) (Auto) 0% (0-3) Neutrophils # (Auto) 9.7x10^3uL (1.8-7.7) Lymphocytes # (Auto) 1.0x10^3/uL (1.0-4.8) Monocytes # (Auto) 1.3x10^3/uL (0.0-1.1) Eosinophils # (Auto) 0.0x10^3/uL (0.0-0.7) Basophils # (Auto) 0.0x10^3/uL (0.0-0.2) Sodium Level 128mmol/L (136-145) Potassium Level 5.0mmol/L (3.5-5.1) Chloride Level 90mmol/L (98-107) Carbon Dioxide Level 26mmol/L (21-32) Anion Gap 12 (6-14) Blood Urea Nitrogen 80mg/dL (7-20) Creatinine 2.1mg/dL (0.6-1.0) Estimated GFR (Cockcroft-Gault) 29.7 BUN/Creatinine Ratio 38 (6-20) Glucose Level 145mg/dL (70-99) Calcium Level 9.4mg/dL (8.5-10.1) Total Bilirubin 2.5mg/dL (0.2-1.0) Aspartate Amino Transf (AST/SGOT) 47U/L (15-37) Alanine Aminotransferase (ALT/SGPT) 17U/L (14-59) Alkaline Phosphatase 177U/L (46-116) Total Protein 7.6g/dL (6.4-8.2) Albumin 2.8g/dL (3.4-5.0) Albumin/Globulin Ratio 0.6 (1.0-1.7) Glucose (Fingerstick) 158mg/dL (70-99) 206mg/dL (70-99) Iron Level 19ug/dL (50-170) Total Iron Binding Capacity 449ug/dL (250-450) Iron Saturation 4% (15-34) Ferritin 67ng/mL (8-252) JOSÉ MIGUEL MENA MD Jul 24, 2016 12:42
--- NOTE | 2016-07-24 13:33 | PDOC ---
PROGRESS NOTES Subjective Subjective Sleeping. Difficult to arouse. Objective Objective Vital Signs Date Time Temp Pulse Resp B/P Pulse Ox O2 Delivery O2 Flow Rate FiO2 07/24/16 11:31 95 Nasal Cannula 2.0 07/24/16 11:00 97.5 92 22 98/75 97.5 Intake and Output 07/24/16 07:00 Intake Total 400 ml Balance 400 ml Intake Oral 400 ml # Bowel Movements 4 Physical Exam Physical Exam No changes in cardiac exam Assessment Assessment Problems Medical Problems: (1) Altered mental status Status: Acute (2) Marti catheter in place Status: Acute (3) Myoclonic jerking Status: Acute (4) Urine retention Status: Acute Plan Plan of Care Multifactorial encephalopathy No changes in cardiac medication at this time Continue planning director and monitoring per floor protocol Comment Review of Relevant I have reviewed the following items mary (where applicable) has been applied. Labs Laboratory Tests Test 07/22/16 17:20 07/22/16 18:25 07/22/16 21:12 07/23/16 03:50 Glucose (Fingerstick) 142mg/dL (70-99) 116mg/dL (70-99) O2 Saturation 87% (92-99) Arterial Blood pH 7.39 (7.35-7.45) Arterial Blood pCO2 at Patient Temp 44mmHg (35-46) Arterial Blood pO2 at Patient Temp 57mmHg (75-108) Arterial Blood HCO3 26mmol/L (21-28) Arterial Blood Base Excess 1mmol/L (-3-3) FiO2 28 White Blood Count 8.9x10^3/uL (4.0-11.0) Red Blood Count 3.99x10^6/uL (3.50-5.40) Hemoglobin 9.5g/dL (12.0-15.5) Hematocrit 31.3% (36.0-47.0) Mean Corpuscular Volume 78fL (79-100) Mean Corpuscular Hemoglobin 24pg (25-35) Mean Corpuscular Hemoglobin Concent 31g/dL (31-37) Red Cell Distribution Width 20.1% (11.5-14.5) Platelet Count 308x10^3/uL (140-400) Neutrophils (%) (Auto) 83% (31-73) Lymphocytes (%) (Auto) 9% (24-48) Monocytes (%) (Auto) 8% (0-9) Eosinophils (%) (Auto) 0% (0-3) Basophils (%) (Auto) 0% (0-3) Neutrophils # (Auto) 7.4x10^3uL (1.8-7.7) Lymphocytes # (Auto) 0.8x10^3/uL (1.0-4.8) Monocytes # (Auto) 0.7x10^3/uL (0.0-1.1) Eosinophils # (Auto) 0.0x10^3/uL (0.0-0.7) Basophils # (Auto) 0.0x10^3/uL (0.0-0.2) Sodium Level 132mmol/L (136-145) Potassium Level 4.6mmol/L (3.5-5.1) Chloride Level 91mmol/L (98-107) Carbon Dioxide Level 32mmol/L (21-32) Anion Gap 9 (6-14) Blood Urea Nitrogen 69mg/dL (7-20) Creatinine 1.8mg/dL (0.6-1.0) Estimated GFR (Cockcroft-Gault) 35.5 Glucose Level 71mg/dL (70-99) Calcium Level 9.4mg/dL (8.5-10.1) Test 07/23/16 08:12 07/23/16 11:30 07/23/16 13:01 07/23/16 13:05 Glucose (Fingerstick) 71mg/dL (70-99) 61mg/dL (70-99) 92mg/dL (70-99) Erythrocyte Sedimentation Rate 85 (0-25) Creatine Kinase 354U/L (26-192) Vitamin B12 Level 1510pg/mL (247-911) Thyroid Stimulating Hormone (TSH) 1.124uIU/mL (0.358-3.74) Test 07/23/16 16:18 07/23/16 20:53 07/24/16 06:22 07/24/16 09:10 Glucose (Fingerstick) 146mg/dL (70-99) 167mg/dL (70-99) 158mg/dL (70-99) White Blood Count 12.1x10^3/uL (4.0-11.0) Red Blood Count 3.76x10^6/uL (3.50-5.40) Hemoglobin 8.9g/dL (12.0-15.5) Hematocrit 28.6% (36.0-47.0) Mean Corpuscular Volume 76fL (79-100) Mean Corpuscular Hemoglobin 24pg (25-35) Mean Corpuscular Hemoglobin Concent 31g/dL (31-37) Red Cell Distribution Width 20.1% (11.5-14.5) Platelet Count 349x10^3/uL (140-400) Neutrophils (%) (Auto) 80% (31-73) Lymphocytes (%) (Auto) 9% (24-48) Monocytes (%) (Auto) 11% (0-9) Eosinophils (%) (Auto) 0% (0-3) Basophils (%) (Auto) 0% (0-3) Neutrophils # (Auto) 9.7x10^3uL (1.8-7.7) Lymphocytes # (Auto) 1.0x10^3/uL (1.0-4.8) Monocytes # (Auto) 1.3x10^3/uL (0.0-1.1) Eosinophils # (Auto) 0.0x10^3/uL (0.0-0.7) Basophils # (Auto) 0.0x10^3/uL (0.0-0.2) Sodium Level 128mmol/L (136-145) Potassium Level 5.0mmol/L (3.5-5.1) Chloride Level 90mmol/L (98-107) Carbon Dioxide Level 26mmol/L (21-32) Anion Gap 12 (6-14) Blood Urea Nitrogen 80mg/dL (7-20) Creatinine 2.1mg/dL (0.6-1.0) Estimated GFR (Cockcroft-Gault) 29.7 BUN/Creatinine Ratio 38 (6-20) Glucose Level 145mg/dL (70-99) Calcium Level 9.4mg/dL (8.5-10.1) Total Bilirubin 2.5mg/dL (0.2-1.0) Aspartate Amino Transf (AST/SGOT) 47U/L (15-37) Alanine Aminotransferase (ALT/SGPT) 17U/L (14-59) Alkaline Phosphatase 177U/L (46-116) Total Protein 7.6g/dL (6.4-8.2) Albumin 2.8g/dL (3.4-5.0) Albumin/Globulin Ratio 0.6 (1.0-1.7) Test 07/24/16 09:55 07/24/16 11:50 Iron Level 19ug/dL (50-170) Total Iron Binding Capacity 449ug/dL (250-450) Iron Saturation 4% (15-34) Ferritin 67ng/mL (8-252) Glucose (Fingerstick) 206mg/dL (70-99) Laboratory Tests Test 07/23/16 16:18 07/23/16 20:53 07/24/16 06:22 07/24/16 09:10 Glucose (Fingerstick) 146mg/dL (70-99) 167mg/dL (70-99) 158mg/dL (70-99) White Blood Count 12.1x10^3/uL (4.0-11.0) Red Blood Count 3.76x10^6/uL (3.50-5.40) Hemoglobin 8.9g/dL (12.0-15.5) Hematocrit 28.6% (36.0-47.0) Mean Corpuscular Volume 76fL (79-100) Mean Corpuscular Hemoglobin 24pg (25-35) Mean Corpuscular Hemoglobin Concent 31g/dL (31-37) Red Cell Distribution Width 20.1% (11.5-14.5) Platelet Count 349x10^3/uL (140-400) Neutrophils (%) (Auto) 80% (31-73) Lymphocytes (%) (Auto) 9% (24-48) Monocytes (%) (Auto) 11% (0-9) Eosinophils (%) (Auto) 0% (0-3) Basophils (%) (Auto) 0% (0-3) Neutrophils # (Auto) 9.7x10^3uL (1.8-7.7) Lymphocytes # (Auto) 1.0x10^3/uL (1.0-4.8) Monocytes # (Auto) 1.3x10^3/uL (0.0-1.1) Eosinophils # (Auto) 0.0x10^3/uL (0.0-0.7) Basophils # (Auto) 0.0x10^3/uL (0.0-0.2) Sodium Level 128mmol/L (136-145) Potassium Level 5.0mmol/L (3.5-5.1) Chloride Level 90mmol/L (98-107) Carbon Dioxide Level 26mmol/L (21-32) Anion Gap 12 (6-14) Blood Urea Nitrogen 80mg/dL (7-20) Creatinine 2.1mg/dL (0.6-1.0) Estimated GFR (Cockcroft-Gault) 29.7 BUN/Creatinine Ratio 38 (6-20) Glucose Level 145mg/dL (70-99) Calcium Level 9.4mg/dL (8.5-10.1) Total Bilirubin 2.5mg/dL (0.2-1.0) Aspartate Amino Transf (AST/SGOT) 47U/L (15-37) Alanine Aminotransferase (ALT/SGPT) 17U/L (14-59) Alkaline Phosphatase 177U/L (46-116) Total Protein 7.6g/dL (6.4-8.2) Albumin 2.8g/dL (3.4-5.0) Albumin/Globulin Ratio 0.6 (1.0-1.7) Test 07/24/16 09:55 07/24/16 11:50 Iron Level 19ug/dL (50-170) Total Iron Binding Capacity 449ug/dL (250-450) Iron Saturation 4% (15-34) Ferritin 67ng/mL (8-252) Glucose (Fingerstick) 206mg/dL (70-99) Microbiology 07/21/16 Blood Culture - Preliminary, Resulted NO GROWTH AFTER 2 DAYS Medications Current Medications Sodium Chloride (Iv Sodium Chloride 0.9% 500ml Bag) 500 ml @ 0 mls/hr 1X ONCE IV Last administered on 07/21/16t 18:32; Start 07/21/16 at 17:45; Stop at 17:46; Status DC Lorazepam (Ativan) 2 mg STK-MED ONCE .ROUTE ; Start 07/21/16 at 19:13; Stop at 19:14; Status DC Ondansetron HCl (Zofran) 4 mg PRN Q8HRS PRN IV NAUSEA/VOMITING; Start 07/21/16 at 19:15; Stop 07/22/16 at 19:14; Status DC Fentanyl Citrate (Fentanyl 2ml Vial) 50 mcg PRN Q1HR PRN IV PAIN Last administered on 07/22/16 19:08; Start 07/21/16 at 19:15; Stop 07/22/16 at 19:14 ; Status DC Acetaminophen (Tylenol) 650 mg PRN Q4HRS PRN PO FEVER; Start 07/21/16 at 19:15 ; Stop 07/22/16 at 19:14; Status DC Albuterol/ Ipratropium (Duoneb) 3 ml RTQID NEB Last administered on 07/22/16 07:42; Start 07/21/16 at 20:00; Stop 07/22/16 at 08:40; Status DC Lorazepam (Ativan) 2 mg 1X ONCE IV Last administered on 07/21/16 19:19; Start 07/21/16 at 19:15; Stop 07/21/16 at 19:17; Status DC Lorazepam (Ativan) 2 mg 1X ONCE IV ; Start 07/21/16 at 23:55; Stop 07/21/16 at 23:56; Status DC Albuterol Sulfate (Ventolin Neb Soln) 2.5 mg PRN Q4HRS PRN NEB SHORTNESS OF BREATH; Start 07/22/16 at 08:30 Alprazolam (Xanax) 0.5 mg PRN BID PRN PO ANXIETY / AGITATION Last administered on 07/24/16 00:46; Start 07/22/16 at 08:30 Amlodipine Besylate (Norvasc) 10 mg BID PO Last administered on 07/22/16 10:06 ; Start 07/22/16 at 09:00 Aspirin (Children'S Aspirin) 81 mg DAILYWBKFT PO Last administered on 07/24/16 09:07; Start 07/22/16 at 09:00 Atorvastatin Calcium (Lipitor) 20 mg HS PO ; Start 07/22/16 at 21:00 Carvedilol (Coreg) 6.25 mg BIDWMEALS PO Last administered on 07/22/16 18:25; Start 07/22/16 at 09:00 Carvedilol (Coreg) 12.5 mg BIDWMEALS PO ; Start 07/22/16 at 17:00; Status UNV Clopidogrel Bisulfate (Plavix) 75 mg DAILYWBKFT PO Last administered on 09:07; Start 07/22/16 at 09:00 Diltiazem HCl (Cardizem 24hr Cd) 180 mg DAILY PO ; Start 07/22/16 at 09:00 Acetaminophen/ Hydrocodone Bitart (Lortab 7.5/325) 1 tab PRN TID PRN PO PAIN Last administered on 07/23/16 06:19; Start 07/22/16 at 08:30 Insulin Aspart (Novolog) 15 units TIDAC SQ Last administered on 07/22/16 18:33 ; Start 07/22/16 at 09:00 Insulin Detemir (Levemir) 45 units QHS SQ Last administered on 07/23/16 21:06; Start 07/22/16 at 21:00 Albuterol/ Ipratropium (Duoneb) 3 ml RTQID NEB Last administered on 07/24/16 11 :26; Start 07/22/16 at 12:00 Lisinopril (Prinivil) 2.5 mg DAILY PO Last administered on 07/22/16 10:04; Start 07/22/16 at 09:00 Ondansetron HCl (Zofran Odt) 4 mg PRN Q8HRS PRN PO NAUSEA/VOMITING; Start 07/22 at 08:30 Sodium Chloride (Saline Mist Nasal) 1 chad PRN Q1HR PRN NS NASAL CONGESTION; Start 07/22/16 at 08:30 Spironolactone (Aldactone) 25 mg DAILY PO ; Start 07/22/16 at 09:00; Stop at 09:00; Status DC Non-Formulary Medication 2 puff PRN Q4-6HRS IH ; Start 07/22/16 at 08:30; Status UNV Bumetanide (Bumex) 2 mg BID94 PO Last administered on 07/24/16 09:07; Start at 09:00 Budesonide (Pulmicort) 0.5 mg RTBID NEB Last administered on 07/24/16 07:28; Start 07/22/16 at 09:00 Non-Formulary Medication 1 puff DAILY IH ; Start 07/22/16 at 09:00; Status UNV Clozapine (Clozaril) 100 mg DAILY PO Last administered on 07/24/16 09:07; Start 07/22/16 at 09:00 Furosemide (Lasix) 40 mg 1X ONCE IVP Last administered on 07/22/16 10:03; Start 07/22/16 at 08:45; Stop 07/22/16 at 08:46; Status DC Lorazepam (Ativan) 2 mg 1X ONCE IV Last administered on 07/22/16 11:32; Start 07/22/16 at 12:00; Stop 07/22/16 at 12:01; Status DC Lorazepam (Ativan) 2 mg 1X ONCE IV ; Start 07/22/16 at 14:30; Stop 07/22/16 at 14:31; Status DC Diphenhydramine HCl (Benadryl) 25 mg PRN QHS PRN PO INSOMNIA Last administered on 07/24/16 00:46; Start 07/23/16 at 03:15 Tamsulosin HCl (Flomax) 0.4 mg QHS PO ; Start 07/24/16 at 21:00 Amoxicillin/ Clavulanate Potassium (Augmentin 875/ 125mg) 1 tab BID PO Last administered on 07/24/16 11:47; Start 07/24/16 at 10:00 Active Scripts Active Duoneb 0.5-3(2.5) Mg/3 Ml (Albuterol/Ipratropium) 3 Ml Ampul.neb 3 Ml NEB RTQID Amlodipine Besylate 10 Mg Tablet 10 Mg PO BID 30 Days Diltiazem 24Hr Cd (Diltiazem HCl) 180 Mg Cap.er.24h 180 Mg PO DAILY 30 Days Clopidogrel (Clopidogrel Bisulfate) 75 Mg Tablet 75 Mg PO DAILYWBKFT 30 Days Saline Mist (Sodium Chloride) 45 Ml [place] 1 [place] NS PRN Q1HR PRN 30 Days Carvedilol 12.5 Mg Tablet 12.5 Mg PO BIDWMEALS 30 Days Children's Aspirin (Aspirin) 81 Mg Tab.chew 81 Mg PO DAILYWBKFT 30 Days Novolog Flexpen (Insulin Aspart) 100 Unit/1 Ml Insuln.pen 15 Units SQ TIDAC Levemir Flextouch (Insulin Detemir) 100 Unit/1 Ml Insuln.pen 45 Units SQ QHS Cyclobenzaprine Hcl 10 Mg Tablet 10 Mg PO PRN TID PRN Hydrocodone-Apap 7.5-325 (Hydrocodone Bit/Acetaminophen) 1 Each Tablet 1-2 Tab PO PRN TID PRN Ventolin Hfa Inhaler (Albuterol Sulfate) 18 Gm Hfa.aer.ad 2 Puff IH PRN Q4-6HRS Albuterol Sulfate Neb Soln (Albuterol Sulfate) 2.5 Mg/3 Ml Vial.neb 1 Vial NEB PRN Q4HRS Alprazolam 0.5 Mg Tablet 0.5 Mg PO BID PRN Reported Lisinopril 2.5 Mg Tablet 2.5 Mg PO DAILY Carvedilol 6.25 Mg Tablet 6.25 Mg PO BIDWMEALS Ondansetron Odt (Ondansetron) 4 Mg Tab.rapdis 4 Mg PO Q8HRS PRN Breo Ellipta 100-25 Mcg Inh (Fluticasone/Vilanterol) 1 Each Aer.pow.ba 1 Puff IH DAILY Lipitor (Atorvastatin Calcium) 20 Mg Tablet 20 Mg PO HS Advair 250-50 Diskus (Fluticasone/Salmeterol) 1 Each Disk.w.dev 2 Puff INH BID Bumetanide 2 Mg Tablet 2 Mg PO BID Spironolactone 25 Mg Tablet 25 Mg PO DAILY Vitals/I & O Vital Sign - Last 24 Hours 07/23/16 07/23/16 07/23/16 07/23/16 15:00 16:11 19:06 19:41 Temp 97.5 97.7 97.5 97.7 Pulse 81 105 Resp 20 16 B/P 94/55 98/53 Pulse Ox 92 94 94 95 O2 Delivery Nasal Cannula Nasal Cannula BiPAP/CPAP Nasal Cannula O2 Flow Rate 2.0 2.0 2.0 2.0 07/23/16 07/23/16 07/24/16 07/24/16 20:00 22:00 03:10 07:00 Temp 98.1 97.7 98.1 97.7 Pulse 96 99 74 Resp 18 18 24 B/P 100/67 115/63 87/57 Pulse Ox 91 95 95 O2 Delivery Nasal Cannula Nasal Cannula Nasal Cannula Nasal Cannula O2 Flow Rate 3.0 2.0 2.0 2.0 07/24/16 07/24/16 07/24/16 07/24/16 07:34 08:00 08:00 09:00 Pulse 74 74 B/P 87/57 87/57 O2 Delivery Nasal Cannula Nasal Cannula O2 Flow Rate 2.0 3.0 07/24/16 07/24/16 07/24/16 07/24/16 09:00 09:00 11:00 11:31 Temp 97.5 97.5 Pulse 74 74 92 Resp 22 B/P 87/57 87/57 98/75 Pulse Ox 96 95 O2 Delivery Nasal Cannula Nasal Cannula O2 Flow Rate 2.0 2.0 Intake and Output 07/23/16 07/23/16 07/24/16 15:00 23:00 07:00 Intake Total 300 ml 100 ml Balance 300 ml 100 ml GWEN WORTHY MD Jul 24, 2016 13:33
--- NOTE | 2016-07-24 14:24 | PDOC ---
PROGRESS NOTES Assessment Assessment Abnormal twitching movements in hands. Recent left pleural effusion. Sarcoidosis of lung per Hx. CHF, acute on chronic. S/ CABG AFib COPD DM Anemia Obesity. Cannabinoids positive in system. Benzo and Opiate positive in system. RECOMMENDATIONS/PLAN: Treat medical diseases. OT/PT. HCT: Negative. EEG on 07/24: Encephalopathy. No seizure activity. HISTORY OF THE PRESENT ILLNESS: 56-y-old AA female patient with above medical diseases was familiar to ER physicians. She came to the ER of [facility] this time with multiple complaints medically and psychiatrically. She stated she has been having twitching movements in her arms lately and has increased symptoms of her anxiety and panic attacks. etc. No acute focalized neurological motor or sensory deficits. PAST MEDICAL HISTORY: Please see above. PAST SURGERY HISTORY: Tonsillectomy Cholecystectomy Hysterectomy ALLERGY: Metformin Adhesives MEDICATIONS: Refer to [facility] FAMILY HISTORY: Non contributory. SOCIAL HISTORY: Unknown her smoking, drinking, and illicit drug use status. Patient did not provide such history on exam. REVIEW OF SYSTEMS: Constitutional: No malnutrition, weight loss, cachexia. Head: No traumatic brain or head injury. Skin: No edema, or rash. Ear: No infection, tinnitus. Eyes: No vision loss or color blindness. Nose: No bleeding or purulent discharges. Hearing: No hearing decrease. Neck: No injury. Breast: No history of cancer, masses,or discharges. Cardiac: AFib Pulmonary: COPD. GI: No GI ulcer, GI bleeding. Urinary/genital: UTI. Endocrinologic: Diabetes Mellitus, obesity. Skeletomuscular: No muscular atrophy, deformity. Neurological: see HP. Psychiatric: Denies drug use/abuse. Otherwise, not [id number] review of systems. PHYSICAL EXAMINATION: General appearance is sleepiness. HEENT: Normocephalic and nontraumatic. Eyes, nose, ears, and throat are unremarkable. Neck is supple. No lymphadenopathy. No crepitus. Cardiovascular: S1, S2, seemed irregular rate and rhythm. Pulmonary: Breathing sounds mildly decreased to auscultation bilaterally. Abdomen: Bowel sounds are positive. Extremities: No rash, lesions, or edema. No restriction of range of motion NEUROLOGICAL EXAMINATION: Sleepiness but arousable. Not sure if she was oriented to time, place and person due to not follow commands. PERRL. EOMI. CN: no focal findings. Muscle tone: within normal. Muscle strength: 5- DTR: 2 UE, 1+ knee Plantar reflex: Flexor response bilaterally Gait: not examined in bed. Sensory exam: no abnormal findings. Not able to access cerebellar signs due to not follow commands.. Not able to perform F-T-N test due to not follow commands. Objective Objective Vital Signs Date Time Temp Pulse Resp B/P Pulse Ox O2 Delivery O2 Flow Rate FiO2 07/24/16 11:31 95 Nasal Cannula 2.0 07/24/16 11:00 97.5 92 22 98/75 97.5 Intake and Output 07/24/16 07:00 Intake Total 400 ml Balance 400 ml Intake Oral 400 ml # Bowel Movements 4 Vitals Signs Vitals VS - Last 72 Hours, by Label Date Time Temp Pulse Resp B/P Pulse Ox O2 Delivery O2 Flow Rate FiO2 07/24/16 11:31 95 Nasal Cannula 2.0 07/24/16 11:00 97.5 92 22 98/75 96 Nasal Cannula 2.0 97.5 07/24/16 09:00 74 87/57 07/24/16 09:00 74 87/57 07/24/16 09:00 74 87/57 07/24/16 08:00 Nasal Cannula 3.0 07/24/16 08:00 74 87/57 07/24/16 07:34 Nasal Cannula 2.0 07/24/16 07:00 74 24 87/57 95 Nasal Cannula 2.0 07/24/16 03:10 97.7 99 18 115/63 95 Nasal Cannula 2.0 97.7 07/23/16 22:00 98.1 96 18 100/67 91 Nasal Cannula 2.0 98.1 07/23/16 20:00 Nasal Cannula 3.0 07/23/16 19:41 95 Nasal Cannula 2.0 07/23/16 19:06 97.7 105 16 98/53 94 BiPAP/CPAP 2.0 97.7 07/23/16 16:11 94 Nasal Cannula 2.0 07/23/16 15:00 97.5 81 20 94/55 92 Nasal Cannula 2.0 97.5 07/23/16 11:44 100 Nasal Cannula 3.0 07/23/16 11:00 96.7 64 20 94/48 97 Nasal Cannula 3.0 96.7 07/23/16 08:41 87 93/52 07/23/16 08:41 87 07/23/16 08:41 87 07/23/16 08:00 Nasal Cannula 3.0 07/23/16 08:00 87 07/23/16 07:45 18 93 Nasal Cannula 3.0 07/23/16 07:00 96.2 87 20 93/52 93 Nasal Cannula 3.0 96.2 Laboratory Laboratory Laboratory Tests Test 07/23/16 16:18 07/23/16 20:53 07/24/16 06:22 07/24/16 09:10 Glucose (Fingerstick) 146mg/dL (70-99) 167mg/dL (70-99) 158mg/dL (70-99) White Blood Count 12.1x10^3/uL (4.0-11.0) Red Blood Count 3.76x10^6/uL (3.50-5.40) Hemoglobin 8.9g/dL (12.0-15.5) Hematocrit 28.6% (36.0-47.0) Mean Corpuscular Volume 76fL (79-100) Mean Corpuscular Hemoglobin 24pg (25-35) Mean Corpuscular Hemoglobin Concent 31g/dL (31-37) Red Cell Distribution Width 20.1% (11.5-14.5) Platelet Count 349x10^3/uL (140-400) Neutrophils (%) (Auto) 80% (31-73) Lymphocytes (%) (Auto) 9% (24-48) Monocytes (%) (Auto) 11% (0-9) Eosinophils (%) (Auto) 0% (0-3) Basophils (%) (Auto) 0% (0-3) Neutrophils # (Auto) 9.7x10^3uL (1.8-7.7) Lymphocytes # (Auto) 1.0x10^3/uL (1.0-4.8) Monocytes # (Auto) 1.3x10^3/uL (0.0-1.1) Eosinophils # (Auto) 0.0x10^3/uL (0.0-0.7) Basophils # (Auto) 0.0x10^3/uL (0.0-0.2) Sodium Level 128mmol/L (136-145) Potassium Level 5.0mmol/L (3.5-5.1) Chloride Level 90mmol/L (98-107) Carbon Dioxide Level 26mmol/L (21-32) Anion Gap 12 (6-14) Blood Urea Nitrogen 80mg/dL (7-20) Creatinine 2.1mg/dL (0.6-1.0) Estimated GFR (Cockcroft-Gault) 29.7 BUN/Creatinine Ratio 38 (6-20) Glucose Level 145mg/dL (70-99) Calcium Level 9.4mg/dL (8.5-10.1) Total Bilirubin 2.5mg/dL (0.2-1.0) Aspartate Amino Transf (AST/SGOT) 47U/L (15-37) Alanine Aminotransferase (ALT/SGPT) 17U/L (14-59) Alkaline Phosphatase 177U/L (46-116) Total Protein 7.6g/dL (6.4-8.2) Albumin 2.8g/dL (3.4-5.0) Albumin/Globulin Ratio 0.6 (1.0-1.7) Test 07/24/16 09:55 07/24/16 11:50 Iron Level 19ug/dL (50-170) Total Iron Binding Capacity 449ug/dL (250-450) Iron Saturation 4% (15-34) Ferritin 67ng/mL (8-252) Glucose (Fingerstick) 206mg/dL (70-99) Microbiology 07/21/16 Blood Culture - Preliminary, Resulted NO GROWTH AFTER 2 DAYS Medication Medications Current Medications Amoxicillin/ Clavulanate Potassium (Augmentin 875/ 125mg) 1 tab BID PO Last administered on 07/24/16t 11:47; Start 07/24/16 at 10:00 Tamsulosin HCl (Flomax) 0.4 mg QHS PO ; Start 07/24/16 at 21:00 Comment Review of Relevant I have reviewed the following items mary (where applicable) has been applied. FELECIA HILL MD Jul 24, 2016 14:24
[2016-07-24] MEDS ORDERED: IV RINGERS,LACTATED 1000ML 1,000 ML IV ONE (17:45)
[2016-07-24] MEDS ORDERED: IRON SUCROSE COMPLEX 500 MG in IV NORMAL SALINE 250ML 250 ML IV ONE (18:00)
--- NOTE | 2016-07-24 18:24 | EEG ---
DATE OF SERVICE: 07/24/2016 EEG NUMBER: [id number]. OBJECTIVE: This is a 56-year-old female patient with history of mental status changes and decreased response. EEG was requested to evaluate cerebral activity and help rule out subclinical seizure. METHOD: 20 electrodes were applied according to the international 10-20 electrode placement system. EKG monitoring, hyperventilation, intermittent photic stimulation, monopolar and bipolar montages are routinely utilized. The record was obtained on a digital system with video monitoring. FINDINGS: 1. Background: The patient was recorded in the drowsy and sleep states. She may wake up from time to time. The overall background amplitude is variable. No clear posterior dominant rhythm is observed. The overall background rhythm is with diffuse slowing in theta and delta frequencies. 2. Abnormalities: No specific epileptiform discharge or electrographic seizure is seen. Diffuse slowing in theta and delta frequencies is throughout the entire recording. 3. Activation: Hyperventilation was not performed because the patient was unable to follow the commands. Intermittent photic stimulation was performed with insignificant photic driving. No specific epileptiform discharge or electrographic seizure induced by intermittent photic stimulation. IMPRESSION: This EEG is an abnormal study for the drowsy and sleep states mainly. No clear posterior dominant rhythm is observed. The overall background rhythm is with diffuse slowing in theta and delta frequencies. No focal, lateralizing, specific epileptiform discharge, or electrographic seizure is seen. This pattern of EEG is suggestive of encephalopathy. FELECIA HILL MD DR: SHELLY/lew JOB#: [id number] / [id number] ETHAN
[2016-07-24] MEDS: ATORVASTATIN CALCIUM 20 MG TABLET PO SCH (21:00)
[2016-07-24] MEDS ORDERED: TAMSULOSIN 0.4 MG CAP.ER.24H. PO SCH (21:00)
[2016-07-24] MEDS: INSULIN DETEMIR 300 UNITS/3 ML INSULN.PEN. SQ SCH (21:00)
[2016-07-24 21:21] LABS: HCO3 ABG 30 mmol/L (21-28); PCO2 ABG 44 mmHg (35-46); PH ABG 7.44 (7.35-7.45); PO2 ABG 83 mmHg (75-108); SAT O2 ABG 96 % (92-99)
[2016-07-24 21:24] LABS: FIO2 ABG 100
[2016-07-24] MEDS: ALBUTEROL SULFATE 2.5 MG/3 ML NEBU. NEB PRN (21:37)
[2016-07-24 21:43] LABS: CALCIUM 9.4 mg/dL (8.5-10.1); CREATININE 2.3 mg/dL (0.6-1.0); GFR 26.7; HEMATOCRIT 31.2 % (36.0-47.0); HEMOGLOBIN 9.6 g/dL (12.0-15.5); POTASSIUM 4.5 mmol/L (3.5-5.1); RED BLOOD COUNT 4.1 x10^6/uL (3.50-5.40); RED CELL DISTRIBUTION WIDTH 20.7 % (11.5-14.5); WHITE BLOOD COUNT 13.4 x10^3/uL (4.0-11.0)
[2016-07-24 21:45] LABS: INR 1.5 (0.8-1.1); PROTHROMBIN TIME PATIENT 17.2 SEC (11.7-14.0)
[2016-07-24 21:48] LABS: ALBUMIN 2.6 g/dL (3.4-5.0); ALBUMIN/GLOBULIN RATIO 0.5 (1.0-1.7); MAGNESIUM 2.5 mg/dL (1.8-2.4); TOTAL BILIRUBIN 2.7 mg/dL (0.2-1.0); TOTAL PROTEIN 7.4 g/dL (6.4-8.2)
[2016-07-24] MEDS ORDERED: MIDAZOLAM PREMIX 100 ML IV ONE (21:50)
--- NOTE | 2016-07-24 22:07 | RAD ---
PROCEDURE AP abdomen radiograph 07/24/2016 HISTORY OG tube placement. FINDINGS An AP portable supine digital radiograph of the abdomen was obtained. The tip of the OG tube extends to overlie the antrum of the stomach. The visualized abdominal bowel gas pattern is nonobstructive. Degenerative changes are seen involving the thoracic and lumbar spine. IMPRESSION The tip of the OG tube overlies the antrum of the stomach. Electronically signed by: Eugene Mejia MD (Jul 24, 2016 22:05:54)
[2016-07-24] MEDS: DOPAMINE 400MG/250ML PREMIX 250 ML IV PRN (23:25)
[2016-07-24] MEDS: NOREPINEPHRINE VIAL 8 MG in IV NORMAL SALINE 250ML 250 ML IV PRN (23:27)
[2016-07-25] VITALS (24 sets, daily range): BP systolic 76–187; BP diastolic 46–105
[2016-07-25] MEDS: NOREPINEPHRINE VIAL 8 MG in IV NORMAL SALINE 250ML 250 ML IV PRN ×2 (03:13→18:37)
[2016-07-25 05:14] LABS: BASO % 0 % (0-3); EOS % 0 % (0-3); HEMATOCRIT 32.9 % (36.0-47.0); LYMPH # 0.9 x10^3/uL (1.0-4.8); LYMPH % 6 % (24-48); MEAN CORPUSCULAR HEMOGLOBIN 24 pg (25-35); MEAN CORPUSCULAR HGB CONC 30 g/dL (31-37); MEAN CORPUSCULAR VOLUME 78 fL (79-100); MONO % 10 % (0-9); NEUT % 85 % (31-73); PLATELET COUNT 496 x10^3/uL (140-400); RED BLOOD COUNT 4.24 x10^6/uL (3.50-5.40); RED CELL DISTRIBUTION WIDTH 20.9 % (11.5-14.5); WHITE BLOOD COUNT 16.6 x10^3/uL (4.0-11.0)
[2016-07-25 05:24] LABS: CALCIUM 9.2 mg/dL (8.5-10.1); CREATININE 2.5 mg/dL (0.6-1.0); GFR 24.3; POTASSIUM 4.9 mmol/L (3.5-5.1)
[2016-07-25 06:00] LABS: BODY TEMP ABG 102.7 DEG; CORRECTED PCO2 ABG 40 mmHg; CORRECTED PH ABG 7.42; CORRECTED PO2 ABG 69 mmHg; HCO3 ABG 24 mmol/L (21-28); PCO2 ABG 36 mmHg (35-46); PH ABG 7.45 (7.35-7.45); PO2 ABG 59 mmHg (75-108); SAT O2 ABG 89 % (92-99)
[2016-07-25 06:02] LABS: FIO2 ABG 100
[2016-07-25] MEDS: MIDAZOLAM PREMIX 100 ML IV PRN ×2 (06:03→20:17)
[2016-07-25] MEDS: IV NORMAL SALINE 1000ML BAG 1,000 ML IV SCH ×2 (06:23→20:18)
[2016-07-25] MEDS: DOPAMINE 400MG/250ML PREMIX 250 ML IV PRN ×2 (06:23→20:18)
--- NOTE | 2016-07-25 06:50 | PDOC ---
Infectious Disease Note ROS ROS Vital Sign Vital Signs Vital Signs Date Time Temp Pulse Resp B/P Pulse Ox O2 Delivery O2 Flow Rate FiO2 07/25/16 06:00 102.7 123 22 89/46 90 Ventilator 102.7 07/24/16 15:37 2.0 Labs Lab Laboratory Tests Test 07/24/16 09:10 07/24/16 09:55 07/24/16 11:50 07/24/16 16:44 Glucose (Fingerstick) 158mg/dL (70-99) 206mg/dL (70-99) 257mg/dL (70-99) Iron Level 19ug/dL (50-170) Total Iron Binding Capacity 449ug/dL (250-450) Iron Saturation 4% (15-34) Ferritin 67ng/mL (8-252) Test 07/24/16 21:14 07/24/16 21:20 07/25/16 04:45 O2 Saturation 96% (92-99) Arterial Blood pH 7.44 (7.35-7.45) Arterial Blood pCO2 at Patient Temp 44mmHg (35-46) Arterial Blood pO2 at Patient Temp 83mmHg (75-108) Arterial Blood HCO3 30mmol/L (21-28) Arterial Blood Base Excess 5mmol/L (-3-3) FiO2 100 White Blood Count 13.4x10^3/uL (4.0-11.0) 16.6x10^3/uL (4.0-11.0) Red Blood Count 4.10x10^6/uL (3.50-5.40) 4.24x10^6/uL (3.50-5.40) Hemoglobin 9.6g/dL (12.0-15.5) 10.0g/dL (12.0-15.5) Hematocrit 31.2% (36.0-47.0) 32.9% (36.0-47.0) Mean Corpuscular Volume 76fL (79-100) 78fL (79-100) Mean Corpuscular Hemoglobin 23pg (25-35) 24pg (25-35) Mean Corpuscular Hemoglobin Concent 31g/dL (31-37) 30g/dL (31-37) Red Cell Distribution Width 20.7% (11.5-14.5) 20.9% (11.5-14.5) Platelet Count 397x10^3/uL (140-400) 496x10^3/uL (140-400) Prothrombin Time 17.2SEC (11.7-14.0) Prothromb Time International Ratio 1.5 (0.8-1.1) Sodium Level 133mmol/L (136-145) 136mmol/L (136-145) Potassium Level 4.5mmol/L (3.5-5.1) 4.9mmol/L (3.5-5.1) Chloride Level 91mmol/L (98-107) 94mmol/L (98-107) Carbon Dioxide Level 32mmol/L (21-32) 28mmol/L (21-32) Anion Gap 10 (6-14) 14 (6-14) Blood Urea Nitrogen 86mg/dL (7-20) 89mg/dL (7-20) Creatinine 2.3mg/dL (0.6-1.0) 2.5mg/dL (0.6-1.0) Estimated GFR (Cockcroft-Gault) 26.7 24.3 BUN/Creatinine Ratio 37 (6-20) Glucose Level 217mg/dL (70-99) 251mg/dL (70-99) Calcium Level 9.4mg/dL (8.5-10.1) 9.2mg/dL (8.5-10.1) Magnesium Level 2.5mg/dL (1.8-2.4) Total Bilirubin 2.7mg/dL (0.2-1.0) Aspartate Amino Transf (AST/SGOT) 60U/L (15-37) Alanine Aminotransferase (ALT/SGPT) 32U/L (14-59) Alkaline Phosphatase 200U/L (46-116) Total Protein 7.4g/dL (6.4-8.2) Albumin 2.6g/dL (3.4-5.0) Albumin/Globulin Ratio 0.5 (1.0-1.7) Neutrophils (%) (Auto) 85% (31-73) Lymphocytes (%) (Auto) 6% (24-48) Monocytes (%) (Auto) 10% (0-9) Eosinophils (%) (Auto) 0% (0-3) Basophils (%) (Auto) 0% (0-3) Neutrophils # (Auto) 14.0x10^3uL (1.8-7.7) Lymphocytes # (Auto) 0.9x10^3/uL (1.0-4.8) Monocytes # (Auto) 1.6x10^3/uL (0.0-1.1) Eosinophils # (Auto) 0.0x10^3/uL (0.0-0.7) Basophils # (Auto) 0.0x10^3/uL (0.0-0.2) Objective Assessment Sepsis Acute Encephalopathy s/p Code Blue / Acute Resp failure - intubation JUAN [facility]IEGO CM and CHF Nonadherence Substance abuse Afib RVR DM Saqrcoidosis High GI residuals Plan Plan of Care D/c Augmentin Repeat cults blood /sputum/Urine Add Zosyn/Zyvox/Micafungin/Acyclovir May need LP if family desires aggressive measures Rectal Tylenol Labs in am Await family discussion per nursing D/w [facility] micro - cults from pleural fluid 07/09 - neg. No malignant cells 35 CC : time # [id number] TIMBO SALAS MD Jul 25, 2016 06:50
--- NOTE | 2016-07-25 07:48 | RAD ---
Exam performed: One view chest. Indication: ETT placement Date of Service: 07/24/2016 10:59 PM Comparison: 2717. Single AP supine portable view chest findings: Cardiomediastinal silhouette is within upper limits of normal. Central vascular congestion is noted with prominent bilateral perihilar interstitial markings. There is a increasing parenchymal opacity in the right lung base with right pleural effusion. Endotracheal tube tip terminates in the mid trachea. Feeding tube traverses the midline chest, the tip not well seen. Impression: Worsening infiltrates right lung base with small right pleural effusion. Central vascular congestion and prominent bilateral interstitial markings, probable early CHF.
[2016-07-25] MEDS: CARVEDILOL 6.25 MG TABLET PO SCH ×2 (08:00→17:00)
[2016-07-25] MEDS ORDERED: MICAFUNGIN 100 MG in IV DEXTROSE 5% 100 ML IV SCH (08:00)
[2016-07-25] MEDS: IPRATRPIUM/ALBUTEROL 0.5/2.5MG 3 ML NEBU. NEB SCH ×4 (08:07→20:28)
[2016-07-25] MEDS: BUDESONIDE 0.5 MG/2 ML NEBU NEB SCH ×2 (08:07→20:28)
[2016-07-25] MEDS: PIPERACILLIN/TAZOBACTAM 2.25 GM in IV NORMAL SALINE 50ML 50 ML IV SCH ×3 (08:23→18:28)
[2016-07-25 08:26] LABS: HCO3 ABG 27 mmol/L (21-28); PCO2 ABG 40 mmHg (35-46); PH ABG 7.44 (7.35-7.45); PO2 ABG 60 mmHg (75-108); SAT O2 ABG 89 % (92-99)
[2016-07-25] MEDS: INSULIN ASPART 300 UNITS/3 ML INSULN.PEN SQ SCH (08:32)
--- NOTE | 2016-07-25 08:45 | PDOC ---
PROGRESS NOTES Subjective Subjective Sedated and intubated. Objective Objective Vital Signs Date Time Temp Pulse Resp B/P Pulse Ox O2 Delivery O2 Flow Rate FiO2 07/25/16 08:08 98 Ventilator 07/25/16 06:00 102.7 123 22 89/46 102.7 07/24/16 15:37 2.0 Intake and Output 07/25/16 07:00 Intake Total 2862 ml Output Total 1700 ml Balance 1162 ml Intake Oral 250 ml IV Total 2612 ml Output Urine Total 1400 ml Gastric Drainage Total 300 ml # Bowel Movements 1 Physical Exam Abdomen: No masses, Other (distended) Heart: Normal S2, Other (tachy) Extremities: No clubbing, No edema General: Other (sedated) Lungs: Normal air movement, Other (on ventilator) Skin: No significant lesion Assessment Assessment Problems Medical Problems: (1) Altered mental status Status: Acute (2) Marti catheter in place Status: Acute (3) Myoclonic jerking Status: Acute (4) Urine retention Status: Acute Plan Plan of Care S/p code blue, intubation and ventilator 07/24. Transferred to ICU 110 Cont NE and Dopamine for now Pt in septic shock Maximize drips Poor prognosis Comment Labs Laboratory Tests Test 07/23/16 11:30 07/23/16 13:01 07/23/16 13:05 07/23/16 16:18 Glucose (Fingerstick) 61mg/dL (70-99) 92mg/dL (70-99) 146mg/dL (70-99) Erythrocyte Sedimentation Rate 85 (0-25) Creatine Kinase 354U/L (26-192) Vitamin B12 Level 1510pg/mL (247-911) Thyroid Stimulating Hormone (TSH) 1.124uIU/mL (0.358-3.74) Test 07/23/16 20:53 07/24/16 06:22 07/24/16 09:10 07/24/16 09:55 Glucose (Fingerstick) 167mg/dL (70-99) 158mg/dL (70-99) White Blood Count 12.1x10^3/uL (4.0-11.0) Red Blood Count 3.76x10^6/uL (3.50-5.40) Hemoglobin 8.9g/dL (12.0-15.5) Hematocrit 28.6% (36.0-47.0) Mean Corpuscular Volume 76fL (79-100) Mean Corpuscular Hemoglobin 24pg (25-35) Mean Corpuscular Hemoglobin Concent 31g/dL (31-37) Red Cell Distribution Width 20.1% (11.5-14.5) Platelet Count 349x10^3/uL (140-400) Neutrophils (%) (Auto) 80% (31-73) Lymphocytes (%) (Auto) 9% (24-48) Monocytes (%) (Auto) 11% (0-9) Eosinophils (%) (Auto) 0% (0-3) Basophils (%) (Auto) 0% (0-3) Neutrophils # (Auto) 9.7x10^3uL (1.8-7.7) Lymphocytes # (Auto) 1.0x10^3/uL (1.0-4.8) Monocytes # (Auto) 1.3x10^3/uL (0.0-1.1) Eosinophils # (Auto) 0.0x10^3/uL (0.0-0.7) Basophils # (Auto) 0.0x10^3/uL (0.0-0.2) Sodium Level 128mmol/L (136-145) Potassium Level 5.0mmol/L (3.5-5.1) Chloride Level 90mmol/L (98-107) Carbon Dioxide Level 26mmol/L (21-32) Anion Gap 12 (6-14) Blood Urea Nitrogen 80mg/dL (7-20) Creatinine 2.1mg/dL (0.6-1.0) Estimated GFR (Cockcroft-Gault) 29.7 BUN/Creatinine Ratio 38 (6-20) Glucose Level 145mg/dL (70-99) Calcium Level 9.4mg/dL (8.5-10.1) Total Bilirubin 2.5mg/dL (0.2-1.0) Aspartate Amino Transf (AST/SGOT) 47U/L (15-37) Alanine Aminotransferase (ALT/SGPT) 17U/L (14-59) Alkaline Phosphatase 177U/L (46-116) Total Protein 7.6g/dL (6.4-8.2) Albumin 2.8g/dL (3.4-5.0) Albumin/Globulin Ratio 0.6 (1.0-1.7) Iron Level 19ug/dL (50-170) Total Iron Binding Capacity 449ug/dL (250-450) Iron Saturation 4% (15-34) Ferritin 67ng/mL (8-252) Test 07/24/16 11:50 07/24/16 16:44 07/24/16 21:14 07/24/16 21:20 Glucose (Fingerstick) 206mg/dL (70-99) 257mg/dL (70-99) O2 Saturation 96% (92-99) Arterial Blood pH 7.44 (7.35-7.45) Arterial Blood pCO2 at Patient Temp 44mmHg (35-46) Arterial Blood pO2 at Patient Temp 83mmHg (75-108) Arterial Blood HCO3 30mmol/L (21-28) Arterial Blood Base Excess 5mmol/L (-3-3) FiO2 100 White Blood Count 13.4x10^3/uL (4.0-11.0) Red Blood Count 4.10x10^6/uL (3.50-5.40) Hemoglobin 9.6g/dL (12.0-15.5) Hematocrit 31.2% (36.0-47.0) Mean Corpuscular Volume 76fL (79-100) Mean Corpuscular Hemoglobin 23pg (25-35) Mean Corpuscular Hemoglobin Concent 31g/dL (31-37) Red Cell Distribution Width 20.7% (11.5-14.5) Platelet Count 397x10^3/uL (140-400) Prothrombin Time 17.2SEC (11.7-14.0) Prothromb Time International Ratio 1.5 (0.8-1.1) Sodium Level 133mmol/L (136-145) Potassium Level 4.5mmol/L (3.5-5.1) Chloride Level 91mmol/L (98-107) Carbon Dioxide Level 32mmol/L (21-32) Anion Gap 10 (6-14) Blood Urea Nitrogen 86mg/dL (7-20) Creatinine 2.3mg/dL (0.6-1.0) Estimated GFR (Cockcroft-Gault) 26.7 BUN/Creatinine Ratio 37 (6-20) Glucose Level 217mg/dL (70-99) Calcium Level 9.4mg/dL (8.5-10.1) Magnesium Level 2.5mg/dL (1.8-2.4) Total Bilirubin 2.7mg/dL (0.2-1.0) Aspartate Amino Transf (AST/SGOT) 60U/L (15-37) Alanine Aminotransferase (ALT/SGPT) 32U/L (14-59) Alkaline Phosphatase 200U/L (46-116) Total Protein 7.4g/dL (6.4-8.2) Albumin 2.6g/dL (3.4-5.0) Albumin/Globulin Ratio 0.5 (1.0-1.7) Test 07/25/16 04:45 07/25/16 08:00 07/25/16 08:31 White Blood Count 16.6x10^3/uL (4.0-11.0) Red Blood Count 4.24x10^6/uL (3.50-5.40) Hemoglobin 10.0g/dL (12.0-15.5) Hematocrit 32.9% (36.0-47.0) Mean Corpuscular Volume 78fL (79-100) Mean Corpuscular Hemoglobin 24pg (25-35) Mean Corpuscular Hemoglobin Concent 30g/dL (31-37) Red Cell Distribution Width 20.9% (11.5-14.5) Platelet Count 496x10^3/uL (140-400) Neutrophils (%) (Auto) 85% (31-73) Lymphocytes (%) (Auto) 6% (24-48) Monocytes (%) (Auto) 10% (0-9) Eosinophils (%) (Auto) 0% (0-3) Basophils (%) (Auto) 0% (0-3) Neutrophils # (Auto) 14.0x10^3uL (1.8-7.7) Lymphocytes # (Auto) 0.9x10^3/uL (1.0-4.8) Monocytes # (Auto) 1.6x10^3/uL (0.0-1.1) Eosinophils # (Auto) 0.0x10^3/uL (0.0-0.7) Basophils # (Auto) 0.0x10^3/uL (0.0-0.2) Sodium Level 136mmol/L (136-145) Potassium Level 4.9mmol/L (3.5-5.1) Chloride Level 94mmol/L (98-107) Carbon Dioxide Level 28mmol/L (21-32) Anion Gap 14 (6-14) Blood Urea Nitrogen 89mg/dL (7-20) Creatinine 2.5mg/dL (0.6-1.0) Estimated GFR (Cockcroft-Gault) 24.3 Glucose Level 251mg/dL (70-99) Calcium Level 9.2mg/dL (8.5-10.1) O2 Saturation 89% (92-99) Arterial Blood pH 7.45 (7.35-7.45) Arterial Blood pH (Temp corrected) 7.42 Arterial Blood pCO2 at Patient Temp 36mmHg (35-46) Arterial Blood pCO2 (Temp correct) 40mmHg Arterial Blood pO2 at Patient Temp 59mmHg (75-108) Arterial Blood pO2 (Temp corrected) 69mmHg Arterial Blood HCO3 24mmol/L (21-28) Arterial Blood Base Excess 1mmol/L (-3-3) FiO2 100 Glucose (Fingerstick) 248mg/dL (70-99) Laboratory Tests Test 07/24/16 09:10 07/24/16 09:55 07/24/16 11:50 07/24/16 16:44 Glucose (Fingerstick) 158mg/dL (70-99) 206mg/dL (70-99) 257mg/dL (70-99) Iron Level 19ug/dL (50-170) Total Iron Binding Capacity 449ug/dL (250-450) Iron Saturation 4% (15-34) Ferritin 67ng/mL (8-252) Test 07/24/16 21:14 07/24/16 21:20 07/25/16 04:45 07/25/16 08:00 O2 Saturation 96% (92-99) 89% (92-99) Arterial Blood pH 7.44 (7.35-7.45) 7.45 (7.35-7.45) Arterial Blood pCO2 at Patient Temp 44mmHg (35-46) 36mmHg (35-46) Arterial Blood pO2 at Patient Temp 83mmHg (75-108) 59mmHg (75-108) Arterial Blood HCO3 30mmol/L (21-28) 24mmol/L (21-28) Arterial Blood Base Excess 5mmol/L (-3-3) 1mmol/L (-3-3) FiO2 100 100 White Blood Count 13.4x10^3/uL (4.0-11.0) 16.6x10^3/uL (4.0-11.0) Red Blood Count 4.10x10^6/uL (3.50-5.40) 4.24x10^6/uL (3.50-5.40) Hemoglobin 9.6g/dL (12.0-15.5) 10.0g/dL (12.0-15.5) Hematocrit 31.2% (36.0-47.0) 32.9% (36.0-47.0) Mean Corpuscular Volume 76fL (79-100) 78fL (79-100) Mean Corpuscular Hemoglobin 23pg (25-35) 24pg (25-35) Mean Corpuscular Hemoglobin Concent 31g/dL (31-37) 30g/dL (31-37) Red Cell Distribution Width 20.7% (11.5-14.5) 20.9% (11.5-14.5) Platelet Count 397x10^3/uL (140-400) 496x10^3/uL (140-400) Prothrombin Time 17.2SEC (11.7-14.0) Prothromb Time International Ratio 1.5 (0.8-1.1) Sodium Level 133mmol/L (136-145) 136mmol/L (136-145) Potassium Level 4.5mmol/L (3.5-5.1) 4.9mmol/L (3.5-5.1) Chloride Level 91mmol/L (98-107) 94mmol/L (98-107) Carbon Dioxide Level 32mmol/L (21-32) 28mmol/L (21-32) Anion Gap 10 (6-14) 14 (6-14) Blood Urea Nitrogen 86mg/dL (7-20) 89mg/dL (7-20) Creatinine 2.3mg/dL (0.6-1.0) 2.5mg/dL (0.6-1.0) Estimated GFR (Cockcroft-Gault) 26.7 24.3 BUN/Creatinine Ratio 37 (6-20) Glucose Level 217mg/dL (70-99) 251mg/dL (70-99) Calcium Level 9.4mg/dL (8.5-10.1) 9.2mg/dL (8.5-10.1) Magnesium Level 2.5mg/dL (1.8-2.4) Total Bilirubin 2.7mg/dL (0.2-1.0) Aspartate Amino Transf (AST/SGOT) 60U/L (15-37) Alanine Aminotransferase (ALT/SGPT) 32U/L (14-59) Alkaline Phosphatase 200U/L (46-116) Total Protein 7.4g/dL (6.4-8.2) Albumin 2.6g/dL (3.4-5.0) Albumin/Globulin Ratio 0.5 (1.0-1.7) Neutrophils (%) (Auto) 85% (31-73) Lymphocytes (%) (Auto) 6% (24-48) Monocytes (%) (Auto) 10% (0-9) Eosinophils (%) (Auto) 0% (0-3) Basophils (%) (Auto) 0% (0-3) Neutrophils # (Auto) 14.0x10^3uL (1.8-7.7) Lymphocytes # (Auto) 0.9x10^3/uL (1.0-4.8) Monocytes # (Auto) 1.6x10^3/uL (0.0-1.1) Eosinophils # (Auto) 0.0x10^3/uL (0.0-0.7) Basophils # (Auto) 0.0x10^3/uL (0.0-0.2) Arterial Blood pH (Temp corrected) 7.42 Arterial Blood pCO2 (Temp correct) 40mmHg Arterial Blood pO2 (Temp corrected) 69mmHg Test 07/25/16 08:31 Glucose (Fingerstick) 248mg/dL (70-99) Microbiology 07/21/16 Blood Culture - Preliminary, Resulted NO GROWTH AFTER 3 DAYS Medications Current Medications Sodium Chloride (Iv Sodium Chloride 0.9% 500ml Bag) 500 ml @ 0 mls/hr 1X ONCE IV Last administered on 07/21/16 18:32; Start 07/21/16 at 17:45; Stop at 17:46; Status DC Lorazepam (Ativan) 2 mg STK-MED ONCE .ROUTE ; Start 07/21/16 at 19:13; Stop at 19:14; Status DC Ondansetron HCl (Zofran) 4 mg PRN Q8HRS PRN IV NAUSEA/VOMITING; Start 07/21/16 at 19:15; Stop 07/22/16 at 19:14; Status DC Fentanyl Citrate (Fentanyl 2ml Vial) 50 mcg PRN Q1HR PRN IV PAIN Last administered on 07/22/16 19:08; Start 07/21/16 at 19:15; Stop 07/22/16 at 19:14 ; Status DC Acetaminophen (Tylenol) 650 mg PRN Q4HRS PRN PO FEVER; Start 07/21/16 at 19:15 ; Stop 07/22/16 at 19:14; Status DC Albuterol/ Ipratropium (Duoneb) 3 ml RTQID NEB Last administered on 07/22/16 07:42; Start 07/21/16 at 20:00; Stop 07/22/16 at 08:40; Status DC Lorazepam (Ativan) 2 mg 1X ONCE IV Last administered on 07/21/16 19:19; Start 07/21/16 at 19:15; Stop 07/21/16 at 19:17; Status DC Lorazepam (Ativan) 2 mg 1X ONCE IV ; Start 07/21/16 at 23:55; Stop 07/21/16 at 23:56; Status DC Albuterol Sulfate (Ventolin Neb Soln) 2.5 mg PRN Q4HRS PRN NEB SHORTNESS OF BREATH Last administered on 07/24/16 21:37; Start 07/22/16 at 08:30 Alprazolam (Xanax) 0.5 mg PRN BID PRN PO ANXIETY / AGITATION Last administered on 07/24/16 00:46; Start 07/22/16 at 08:30 Amlodipine Besylate (Norvasc) 10 mg BID PO Last administered on 07/22/16 10:06 ; Start 07/22/16 at 09:00 Aspirin (Children'S Aspirin) 81 mg DAILYWBKFT PO Last administered on 07/24/16 09:07; Start 07/22/16 at 09:00 Atorvastatin Calcium (Lipitor) 20 mg HS PO ; Start 07/22/16 at 21:00 Carvedilol (Coreg) 6.25 mg BIDWMEALS PO Last administered on 07/22/16 18:25; Start 07/22/16 at 09:00 Carvedilol (Coreg) 12.5 mg BIDWMEALS PO ; Start 07/22/16 at 17:00; Status UNV Clopidogrel Bisulfate (Plavix) 75 mg DAILYWBKFT PO Last administered on 09:07; Start 07/22/16 at 09:00 Diltiazem HCl (Cardizem 24hr Cd) 180 mg DAILY PO ; Start 07/22/16 at 09:00 Acetaminophen/ Hydrocodone Bitart (Lortab 7.5/325) 1 tab PRN TID PRN PO PAIN Last administered on 07/23/16 06:19; Start 07/22/16 at 08:30 Insulin Aspart (Novolog) 15 units TIDAC SQ Last administered on 07/25/16 08:32 ; Start 07/22/16 at 09:00 Insulin Detemir (Levemir) 45 units QHS SQ Last administered on 07/23/16 21:06; Start 07/22/16 at 21:00 Albuterol/ Ipratropium (Duoneb) 3 ml RTQID NEB Last administered on 07/25/16 08 :07; Start 07/22/16 at 12:00 Lisinopril (Prinivil) 2.5 mg DAILY PO Last administered on 07/22/16 10:04; Start 07/22/16 at 09:00 Ondansetron HCl (Zofran Odt) 4 mg PRN Q8HRS PRN PO NAUSEA/VOMITING; Start 07/22 at 08:30 Sodium Chloride (Saline Mist Nasal) 1 chad PRN Q1HR PRN NS NASAL CONGESTION; Start 07/22/16 at 08:30 Spironolactone (Aldactone) 25 mg DAILY PO ; Start 07/22/16 at 09:00; Stop at 09:00; Status DC Non-Formulary Medication 2 puff PRN Q4-6HRS IH ; Start 07/22/16 at 08:30; Status UNV Bumetanide (Bumex) 2 mg BID94 PO Last administered on 07/24/16 09:07; Start at 09:00 Budesonide (Pulmicort) 0.5 mg RTBID NEB Last administered on 07/25/16 08:07; Start 07/22/16 at 09:00 Non-Formulary Medication 1 puff DAILY IH ; Start 07/22/16 at 09:00; Status UNV Clozapine (Clozaril) 100 mg DAILY PO Last administered on 07/24/16 09:07; Start 07/22/16 at 09:00 Furosemide (Lasix) 40 mg 1X ONCE IVP Last administered on 07/22/16 10:03; Start 07/22/16 at 08:45; Stop 07/22/16 at 08:46; Status DC Lorazepam (Ativan) 2 mg 1X ONCE IV Last administered on 07/22/16 11:32; Start 07/22/16 at 12:00; Stop 07/22/16 at 12:01; Status DC Lorazepam (Ativan) 2 mg 1X ONCE IV ; Start 07/22/16 at 14:30; Stop 07/22/16 at 14:31; Status DC Diphenhydramine HCl (Benadryl) 25 mg PRN QHS PRN PO INSOMNIA Last administered on 07/24/16 00:46; Start 07/23/16 at 03:15 Tamsulosin HCl (Flomax) 0.4 mg QHS PO ; Start 07/24/16 at 21:00 Amoxicillin/ Clavulanate Potassium 1 tab 1 tab BID PO Last administered on 11:47; Start 07/24/16 at 10:00; Stop 07/25/16 at 07:10; Status DC Lactated Ringer's 1,000 ml @ 75 mls/hr 1X ONCE IV Last administered on 17:56; Start 07/24/16 at 17:45; Stop 07/25/16 at 07:04; Status DC Iron Sucrose 500 mg/Sodium Chloride 275 ml @ 78.571 mls/ hr 1X ONCE IV Last administered on 07/24/16 17:56; Start 07/24/16 at 18:00; Stop 07/24/16 at 21:29; Status DC Norepinephrine Bitartrate 8 mg/ Sodium Chloride 258 ml @ 0 mls/hr CONT PRN IV SEE I/O RECORD Last administered on 07/25/16 03:13; Start 07/24/16 at 21:00 Midazolam HCl 100 ml @ As Directed STK-MED ONCE IV ; Start 07/24/16 at 21:50; Stop 07/24/16 at 21:51; Status DC Dopamine HCl/ Dextrose 250 ml @ 18.371 mls/ hr CONT PRN IV SEE I/O RECORD Last administered on 07/25/16 06:23; Start 07/24/16 at 22:30 Midazolam HCl 100 ml @ 0 mls/hr CONT PRN IV SEE I/O RECORD Last administered on 07/25/16 06:03; Start 07/24/16 at 23:45 Sodium Chloride 1,000 ml @ 100 mls/hr Q10H IV Last administered on 07/25/16 06 :23; Start 07/25/16 at 06:30 Piperacillin Sod/ Tazobactam Sod 2.25 gm/Sodium Chloride 50 ml @ 100 mls/hr Q6HRS IV Last administered on 07/25/16 08:23; Start 07/25/16 at 07:30 Micafungin Sodium 100 mg/Dextrose 100 ml @ 100 mls/hr Q24H IV ; Start 07/25/16 at 08:00 Linezolid (Zyvox Premix) 300 ml @ 300 mls/hr Q12HR IV ; Start 07/25/16 at 09:00 Acetaminophen 650 mg 650 mg PRN Q6HRS PRN MI MILD PAIN / TEMP; Start 07/25/16 at 07:15 Acyclovir Sodium/ Dextrose (Zovirax) 261 ml @ 261 mls/hr Q12HR IV ; Start at 09:00 Active Scripts Active Duoneb 0.5-3(2.5) Mg/3 Ml (Albuterol/Ipratropium) 3 Ml Ampul.neb 3 Ml NEB RTQID Amlodipine Besylate 10 Mg Tablet 10 Mg PO BID 30 Days Diltiazem 24Hr Cd (Diltiazem HCl) 180 Mg Cap.er.24h 180 Mg PO DAILY 30 Days Clopidogrel (Clopidogrel Bisulfate) 75 Mg Tablet 75 Mg PO DAILYWBKFT 30 Days Saline Mist (Sodium Chloride) 45 Ml Gary 1 Chad NS PRN Q1HR PRN 30 Days Carvedilol 12.5 Mg Tablet 12.5 Mg PO BIDWMEALS 30 Days Children's Aspirin (Aspirin) 81 Mg Tab.chew 81 Mg PO DAILYWBKFT 30 Days Novolog Flexpen (Insulin Aspart) 100 Unit/1 Ml Insuln.pen 15 Units SQ TIDAC Levemir Flextouch (Insulin Detemir) 100 Unit/1 Ml Insuln.pen 45 Units SQ QHS Cyclobenzaprine Hcl 10 Mg Tablet 10 Mg PO PRN TID PRN Hydrocodone-Apap 7.5-325 (Hydrocodone Bit/Acetaminophen) 1 Each Tablet 1-2 Tab PO PRN TID PRN Ventolin Hfa Inhaler (Albuterol Sulfate) 18 Gm Hfa.aer.ad 2 Puff IH PRN Q4-6HRS Albuterol Sulfate Neb Soln (Albuterol Sulfate) 2.5 Mg/3 Ml Vial.neb 1 Vial NEB PRN Q4HRS Alprazolam 0.5 Mg Tablet 0.5 Mg PO BID PRN Reported Lisinopril 2.5 Mg Tablet 2.5 Mg PO DAILY Carvedilol 6.25 Mg Tablet 6.25 Mg PO BIDWMEALS Ondansetron Odt (Ondansetron) 4 Mg Tab.rapdis 4 Mg PO Q8HRS PRN Breo Ellipta 100-25 Mcg Inh (Fluticasone/Vilanterol) 1 Each Aer.pow.ba 1 Puff IH DAILY Lipitor (Atorvastatin Calcium) 20 Mg Tablet 20 Mg PO HS Advair 250-50 Diskus (Fluticasone/Salmeterol) 1 Each Disk.w.dev 2 Puff INH BID Bumetanide 2 Mg Tablet 2 Mg PO BID Spironolactone 25 Mg Tablet 25 Mg PO DAILY Vitals/I & O Vital Sign - Last 24 Hours 07/24/16 07/24/16 07/24/16 07/24/16 09:00 09:00 09:00 11:00 Temp 97.5 97.5 Pulse 74 74 74 92 Resp 22 B/P 87/57 87/57 87/57 98/75 Pulse Ox 96 O2 Delivery Nasal Cannula O2 Flow Rate 2.0 07/24/16 07/24/16 07/24/16 07/24/16 11:31 13:00 15:37 16:47 Pulse 92 B/P 98/75 Pulse Ox 95 O2 Delivery Nasal Cannula Nasal Cannula Nasal Cannula O2 Flow Rate 2.0 3.0 2.0 07/24/16 07/24/16 07/24/16 07/24/16 20:45 21:00 21:00 21:00 Temp 97.5 97.5 Pulse 134 134 Resp 20 20 B/P 82/48 69/41 Pulse Ox 100 95 96 O2 Delivery Ventilator Mechanical Ventilator Ventilator Ventilator 07/24/16 07/24/16 07/24/16 07/24/16 21:15 21:30 21:38 21:45 Pulse 134 134 134 Resp 20 20 20 B/P 95/52 95/52 73/45 Pulse Ox 97 97 91 87 O2 Delivery Ventilator Ventilator Ventilator Ventilator 07/24/16 07/24/16 07/24/16 07/24/16 22:00 22:30 23:00 23:29 Pulse 134 134 134 Resp 20 20 20 B/P 94/54 101/45 108/62 Pulse Ox 87 87 93 O2 Delivery Ventilator Ventilator Ventilator Ventilator 07/25/16 07/25/16 07/25/16 07/25/16 00:00 00:00 01:00 01:17 Temp 98.7 98.7 Pulse 119 119 Resp 20 20 B/P 102/52 92/50 Pulse Ox 94 94 94 O2 Delivery Mechanical Ventilator Ventilator Ventilator Ventilator 07/25/16 07/25/16 07/25/16 07/25/16 02:00 03:00 03:10 04:00 Pulse 128 130 Resp 20 22 B/P 84/56 92/52 Pulse Ox 94 90 91 O2 Delivery Ventilator Ventilator Ventilator Mechanical Ventilator 07/25/16 07/25/16 07/25/16 07/25/16 04:00 05:00 05:07 06:00 Temp 102.2 102.7 102.2 102.7 Pulse 130 128 123 Resp 22 22 22 B/P 90/50 104/55 89/46 Pulse Ox 90 90 87 90 O2 Delivery Ventilator Ventilator Ventilator Ventilator 07/25/16 08:08 Pulse Ox 98 O2 Delivery Ventilator Intake and Output 3/2/17 3/2/17 3/3/17 15:00 23:00 07:00 Intake Total 250 ml 2612 ml Output Total 1000 ml 700 ml Balance -750 ml 1912 ml GWEN WORTHY MD Jul 25, 2016 08:45
[2016-07-25] MEDS: DILTIAZEM HCL 180 MG CAP.ER.24H PO SCH (09:00)
--- NOTE | 2016-07-25 09:06 | RAD ---
Portable chest, 07/25/2016: History: Intubation Comparison is made to yesterday's study. An ET tube remains in place with its tip located well above the shreya. An NG tube extends into the stomach. The heart is enlarged. The pulmonary vascularity is congested with loss of vascular margination. There is dense consolidation in the right base as well as moderate patchy infiltrates in other portions of both lungs, slightly worse than on yesterday's exam. There is probably pleural fluid contributing to the right basilar opacity. There is no evidence of pneumothorax. IMPRESSION: 1. The ET tube and NG tube are in satisfactory positions. 2. Congestive heart failure with slight further worsening of the pulmonary infiltrates compatible with associated pulmonary edema. A component of pneumonia in the right base is a possibility.
[2016-07-25 09:18] LABS: FIO2 ABG 100
[2016-07-25 09:24] LABS: NUCLEATED RBC 2
[2016-07-25 09:25] LABS: ANISOCYTOSIS PRESENT; HYPOCHROMIA PRESENT; MICROCYTOSIS PRESENT; POLYCHROMASIA PRESENT; TARGET CELLS PRESENT
[2016-07-25] MEDS: ACYCLOVIR SODIUM IV SCH ×2 (09:36→20:59)
[2016-07-25] MEDS: DEXTROSE 5% IV SCH ×2 (09:36→20:59)
--- NOTE | 2016-07-25 09:42 | PDOC ---
SUBJECTIVE Subjective Pt moved down to ICU; unable to speak as she is ventilated OBJECTIVE Objective Pt resting quietly. Family member at bedside Vital Signs Vital Signs Date Time Temp Pulse Resp B/P Pulse Ox O2 Delivery O2 Flow Rate FiO2 07/25/16 08:08 98 Ventilator 07/25/16 06:00 102.7 123 22 89/46 90 Ventilator 102.7 07/25/16 05:07 87 Ventilator 07/25/16 05:00 128 22 104/55 90 Ventilator 07/25/16 04:00 102.2 130 22 90/50 90 Ventilator 102.2 07/25/16 04:00 Mechanical Ventilator 07/25/16 03:10 91 Ventilator 07/25/16 03:00 130 22 92/52 90 Ventilator 07/25/16 02:00 128 20 84/56 94 Ventilator 07/25/16 01:17 94 Ventilator 07/25/16 01:00 119 20 92/50 94 Ventilator 07/25/16 00:00 98.7 119 20 102/52 94 Ventilator 98.7 07/25/16 00:00 Mechanical Ventilator 07/24/16 23:29 Ventilator 07/24/16 23:00 134 20 108/62 93 Ventilator 07/24/16 22:30 134 20 101/45 87 Ventilator 07/24/16 22:00 134 20 94/54 87 Ventilator 07/24/16 21:45 134 20 73/45 87 Ventilator 07/24/16 21:38 91 Ventilator 07/24/16 21:30 134 20 95/52 97 Ventilator 07/24/16 21:15 134 20 95/52 97 Ventilator 07/24/16 21:00 96 Ventilator 07/24/16 21:00 134 20 69/41 95 Ventilator 07/24/16 21:00 Mechanical Ventilator 07/24/16 20:45 97.5 134 20 82/48 100 Ventilator 97.5 07/24/16 16:47 92 98/75 07/24/16 15:37 Nasal Cannula 2.0 07/24/16 13:00 Nasal Cannula 3.0 07/24/16 11:31 95 Nasal Cannula 2.0 07/24/16 11:00 97.5 92 22 98/75 96 Nasal Cannula 2.0 97.5 I & O Intake and Output 07/25/16 07:00 Intake Total 2862 ml Output Total 1700 ml Balance 1162 ml Intake Oral 250 ml IV Total 2612 ml Output Urine Total 1400 ml Gastric Drainage Total 300 ml # Bowel Movements 1 PHYSICAL EXAM Physical Exam GEN: NAD HEENT: OP clear CV: Pt on monitor RESP: Pt intubated, CTA upper eng, lower eng are dim. ABD: NABS, SNT/ND, obese : Catheter in place, draining clear urine, mayela tinged, no clots. New stat lock placed to R upper leg by FORENSIC NURSE Fran EXT: Pt wearing brett hose, slight swelling upper extremities NEURO: Unable to assess; pt intubated ASSESSMENT/PLAN Assessment/Plan Pt intubated, unresponsive. Catheter is draining clear, mayela-tinged urine. Creatinine up from 2.3 on 07/24 to 2.5 on 07/25. Nephrology consult already ordered by medical team. FORENSIC NURSE ordered Renal and Bladder Ultrasound Marti to gravity, remain in place D/C flomax, since patient intubated, unable to take oral pills. Will follow. Problems: (1) Urine retention (2) Marti catheter in place (3) Elevated serum creatinine COMMENT Lab Laboratory Tests Test 07/24/16 09:55 07/24/16 11:50 07/24/16 16:44 07/24/16 21:14 Iron Level 19ug/dL (50-170) Total Iron Binding Capacity 449ug/dL (250-450) Iron Saturation 4% (15-34) Ferritin 67ng/mL (8-252) Glucose (Fingerstick) 206mg/dL (70-99) 257mg/dL (70-99) O2 Saturation 96% (92-99) Arterial Blood pH 7.44 (7.35-7.45) Arterial Blood pCO2 at Patient Temp 44mmHg (35-46) Arterial Blood pO2 at Patient Temp 83mmHg (75-108) Arterial Blood HCO3 30mmol/L (21-28) Arterial Blood Base Excess 5mmol/L (-3-3) FiO2 100 Test 07/24/16 21:20 07/25/16 04:45 07/25/16 08:00 07/25/16 08:23 White Blood Count 13.4x10^3/uL (4.0-11.0) 16.6x10^3/uL (4.0-11.0) Red Blood Count 4.10x10^6/uL (3.50-5.40) 4.24x10^6/uL (3.50-5.40) Hemoglobin 9.6g/dL (12.0-15.5) 10.0g/dL (12.0-15.5) Hematocrit 31.2% (36.0-47.0) 32.9% (36.0-47.0) Mean Corpuscular Volume 76fL (79-100) 78fL (79-100) Mean Corpuscular Hemoglobin 23pg (25-35) 24pg (25-35) Mean Corpuscular Hemoglobin Concent 31g/dL (31-37) 30g/dL (31-37) Red Cell Distribution Width 20.7% (11.5-14.5) 20.9% (11.5-14.5) Platelet Count 397x10^3/uL (140-400) 496x10^3/uL (140-400) Prothrombin Time 17.2SEC (11.7-14.0) Prothromb Time International Ratio 1.5 (0.8-1.1) Sodium Level 133mmol/L (136-145) 136mmol/L (136-145) Potassium Level 4.5mmol/L (3.5-5.1) 4.9mmol/L (3.5-5.1) Chloride Level 91mmol/L (98-107) 94mmol/L (98-107) Carbon Dioxide Level 32mmol/L (21-32) 28mmol/L (21-32) Anion Gap 10 (6-14) 14 (6-14) Blood Urea Nitrogen 86mg/dL (7-20) 89mg/dL (7-20) Creatinine 2.3mg/dL (0.6-1.0) 2.5mg/dL (0.6-1.0) Estimated GFR (Cockcroft-Gault) 26.7 24.3 BUN/Creatinine Ratio 37 (6-20) Glucose Level 217mg/dL (70-99) 251mg/dL (70-99) Calcium Level 9.4mg/dL (8.5-10.1) 9.2mg/dL (8.5-10.1) Magnesium Level 2.5mg/dL (1.8-2.4) Total Bilirubin 2.7mg/dL (0.2-1.0) Aspartate Amino Transf (AST/SGOT) 60U/L (15-37) Alanine Aminotransferase (ALT/SGPT) 32U/L (14-59) Alkaline Phosphatase 200U/L (46-116) Total Protein 7.4g/dL (6.4-8.2) Albumin 2.6g/dL (3.4-5.0) Albumin/Globulin Ratio 0.5 (1.0-1.7) Neutrophils (%) (Auto) 85% (31-73) Lymphocytes (%) (Auto) 6% (24-48) Monocytes (%) (Auto) 10% (0-9) Eosinophils (%) (Auto) 0% (0-3) Basophils (%) (Auto) 0% (0-3) Neutrophils # (Auto) 14.0x10^3uL (1.8-7.7) Lymphocytes # (Auto) 0.9x10^3/uL (1.0-4.8) Monocytes # (Auto) 1.6x10^3/uL (0.0-1.1) Eosinophils # (Auto) 0.0x10^3/uL (0.0-0.7) Basophils # (Auto) 0.0x10^3/uL (0.0-0.2) O2 Saturation 89% (92-99) 89% (92-99) Arterial Blood pH 7.45 (7.35-7.45) 7.44 (7.35-7.45) Arterial Blood pH (Temp corrected) 7.42 Arterial Blood pCO2 at Patient Temp 36mmHg (35-46) 40mmHg (35-46) Arterial Blood pCO2 (Temp correct) 40mmHg Arterial Blood pO2 at Patient Temp 59mmHg (75-108) 60mmHg (75-108) Arterial Blood pO2 (Temp corrected) 69mmHg Arterial Blood HCO3 24mmol/L (21-28) 27mmol/L (21-28) Arterial Blood Base Excess 1mmol/L (-3-3) 3mmol/L (-3-3) FiO2 100 100 Test 07/25/16 08:31 Glucose (Fingerstick) 248mg/dL (70-99) Imaging No urology findings on KUB 07/24/16 SHEA KIRBY APRN Jul 25, 2016 09:41
[2016-07-25 09:44] LABS: PLT ESTIMATE INCREASED (ADEQUATE)
--- NOTE | 2016-07-25 10:38 | RAD ---
Exam performed: Renal sonogram. Indication: Acute renal failure Date of Service: 07/25/16 . Comparison: None available Technique: Real-time grayscale imaging of the kidneys is performed and images are obtained. Findings: The study is very limited due to patient's body habitus, extensive edema and patient's inability to be placed on decubitus position. The right kidney measures 12.7 x 5.0 x 5.1 cm. There is no right hydronephrosis or nephrolithiasis. The left kidney is not clearly seen. Impression: 1. Nonvisualized left kidney due to reasons mentioned above. Normal appearing right kidney.
[2016-07-25 10:52] LABS: OBC FLU VALID
[2016-07-25 12:15] LABS: BILIRUBIN,URINE NEGATIVE (NEG); GLUCOSE,URINE NEGATIVE (NEG); NITRITE,URINE NEGATIVE (NEG); PROTEIN,URINE 30 mg/dL (NEG-TRACE)
[2016-07-25 12:27] LABS: BACTERIA,URINE 0 /HPF (0-FEW); RBC,URINE TNTC /HPF (0-2); WBC,URINE 0 /HPF (0-4)
[2016-07-25] MEDS ORDERED: DEXTROSE 50% 25 GM / 50ML DISP.SYRIN. IV PRN (12:30)
--- NOTE | 2016-07-25 12:34 | PDOC2 ---
CONSULT Date of Consult Date of Consult DATE: 07/25/16 TIME: 12:21 Reason for Consult Reason for Consult: JUAN DIEGO Referring Physician Referring Physician: HEATHER Identification/Chief Complaint Chief Complaint CONFUSION Source Source: Chart review History of Present Illness Reason for Visit: THIS IS A 56 YR OLD ADMITTED WITH CONFUSION, THEN RESP FAILURE WITH HYPOTENSION AND LEUCOCYTOSIS WITH SEPSIS. SHE HAS CM WITH CHF AND IS ON THE VENT REQUIRING 100% FIO2 WITH A PO2 OF 60. CKD PROB STAGE 2 WITH NORMAL CR IS NOTED BUT CURRENTLY HAS JUAN DIEGO WITH A CR OF 2.5 BUT UO HAS BEEN GOOD Past Medical History Cardiovascular: CAD, CHF, HTN, Hyperlipidemia Pulmonary: Asthma, Bronchitis, COPD, Pneumonia, Other CENTRAL NERVOUS SYSTEM: Periperal neuropathy GI: GERD, Hemorrhoids Heme/Onc: No pertinent hx Hepatobiliary: No pertinent hx Psych: Anxiety, Depression Musculoskeletal: low back pain Rheumatologic: Other Infectious disease: No pertinent hx Renal/: No pertinent hx Endocrine: Diabetes Past Surgical History Past Surgical History: Cholecystectomy, , Tonsillectomy, Hysterectomy , Other Family History Family History: Cancer, Diabetes, Hypertension, Other Social History ALCOHOL: none Drugs: Cocaine, Marijuana Lives: Alone Current Problem List Problem List Problems Medical Problems: (1) Altered mental status Status: Acute (2) Elevated serum creatinine Status: Acute (3) Chandra catheter in place Status: Acute (4) Myoclonic jerking Status: Acute (5) Urine retention Status: Acute Current Medications Current Medications Current Medications Sodium Chloride (Iv Sodium Chloride 0.9% 500ml Bag) 500 ml @ 0 mls/hr 1X ONCE IV Last administered on 07/21/16 18:32; Start 07/21/16 at 17:45; Stop at 17:46; Status DC Lorazepam (Ativan) 2 mg STK-MED ONCE .ROUTE ; Start 07/21/16 at 19:13; Stop at 19:14; Status DC Ondansetron HCl (Zofran) 4 mg PRN Q8HRS PRN IV NAUSEA/VOMITING; Start 07/21/16 at 19:15; Stop 07/22/16 at 19:14; Status DC Fentanyl Citrate (Fentanyl 2ml Vial) 50 mcg PRN Q1HR PRN IV PAIN Last administered on 07/22/16 19:08; Start 07/21/16 at 19:15; Stop 07/22/16 at 19:14 ; Status DC Acetaminophen (Tylenol) 650 mg PRN Q4HRS PRN PO FEVER; Start 07/21/16 at 19:15 ; Stop 07/22/16 at 19:14; Status DC Albuterol/ Ipratropium (Duoneb) 3 ml RTQID NEB Last administered on 07/22/16 07:42; Start 07/21/16 at 20:00; Stop 07/22/16 at 08:40; Status DC Lorazepam (Ativan) 2 mg 1X ONCE IV Last administered on 07/21/16 19:19; Start 07/21/16 at 19:15; Stop 07/21/16 at 19:17; Status DC Lorazepam (Ativan) 2 mg 1X ONCE IV ; Start 07/21/16 at 23:55; Stop 07/21/16 at 23:56; Status DC Albuterol Sulfate (Ventolin Neb Soln) 2.5 mg PRN Q4HRS PRN NEB SHORTNESS OF BREATH Last administered on 07/24/16 21:37; Start 07/22/16 at 08:30 Alprazolam (Xanax) 0.5 mg PRN BID PRN PO ANXIETY / AGITATION Last administered on 07/24/16 00:46; Start 07/22/16 at 08:30 Amlodipine Besylate (Norvasc) 10 mg BID PO Last administered on 07/22/16 10:06 ; Start 07/22/16 at 09:00 Aspirin (Children'S Aspirin) 81 mg DAILYWBKFT PO Last administered on 07/24/16 09:07; Start 07/22/16 at 09:00 Atorvastatin Calcium (Lipitor) 20 mg HS PO ; Start 07/22/16 at 21:00 Carvedilol (Coreg) 6.25 mg BIDWMEALS PO Last administered on 07/22/16 18:25; Start 07/22/16 at 09:00 Carvedilol (Coreg) 12.5 mg BIDWMEALS PO ; Start 07/22/16 at 17:00; Status UNV Clopidogrel Bisulfate (Plavix) 75 mg DAILYWBKFT PO Last administered on 09:07; Start 07/22/16 at 09:00 Diltiazem HCl (Cardizem 24hr Cd) 180 mg DAILY PO ; Start 07/22/16 at 09:00 Acetaminophen/ Hydrocodone Bitart (Lortab 7.5/325) 1 tab PRN TID PRN PO PAIN Last administered on 07/23/16 06:19; Start 07/22/16 at 08:30 Insulin Aspart (Novolog) 15 units TIDAC SQ Last administered on 07/25/16 08:32 ; Start 07/22/16 at 09:00 Insulin Detemir (Levemir) 45 units QHS SQ Last administered on 07/23/16 21:06; Start 07/22/16 at 21:00 Albuterol/ Ipratropium (Duoneb) 3 ml RTQID NEB Last administered on 07/25/16 11 :13; Start 07/22/16 at 12:00 Lisinopril (Prinivil) 2.5 mg DAILY PO Last administered on 07/22/16 10:04; Start 07/22/16 at 09:00 Ondansetron HCl (Zofran Odt) 4 mg PRN Q8HRS PRN PO NAUSEA/VOMITING; Start 07/22 at 08:30 Sodium Chloride (Saline Mist Nasal) 1 chad PRN Q1HR PRN NS NASAL CONGESTION; Start 07/22/16 at 08:30 Spironolactone (Aldactone) 25 mg DAILY PO ; Start 07/22/16 at 09:00; Stop at 09:00; Status DC Non-Formulary Medication 2 puff PRN Q4-6HRS IH ; Start 07/22/16 at 08:30; Status UNV Bumetanide (Bumex) 2 mg BID94 PO Last administered on 07/24/16 09:07; Start at 09:00 Budesonide (Pulmicort) 0.5 mg RTBID NEB Last administered on 07/25/16 08:07; Start 07/22/16 at 09:00 Non-Formulary Medication 1 puff DAILY IH ; Start 07/22/16 at 09:00; Status UNV Clozapine (Clozaril) 100 mg DAILY PO Last administered on 07/24/16 09:07; Start 07/22/16 at 09:00 Furosemide (Lasix) 40 mg 1X ONCE IVP Last administered on 07/22/16 10:03; Start 07/22/16 at 08:45; Stop 07/22/16 at 08:46; Status DC Lorazepam (Ativan) 2 mg 1X ONCE IV Last administered on 07/22/16 11:32; Start 07/22/16 at 12:00; Stop 07/22/16 at 12:01; Status DC Lorazepam (Ativan) 2 mg 1X ONCE IV ; Start 07/22/16 at 14:30; Stop 07/22/16 at 14:31; Status DC Diphenhydramine HCl (Benadryl) 25 mg PRN QHS PRN PO INSOMNIA Last administered on 07/24/16 00:46; Start 07/23/16 at 03:15 Tamsulosin HCl (Flomax) 0.4 mg QHS PO ; Start 07/24/16 at 21:00; Stop 07/25/16 at 09:47; Status DC Amoxicillin/ Clavulanate Potassium 1 tab 1 tab BID PO Last administered on 11:47; Start 07/24/16 at 10:00; Stop 07/25/16 at 07:10; Status DC Lactated Ringer's 1,000 ml @ 75 mls/hr 1X ONCE IV Last administered on 17:56; Start 07/24/16 at 17:45; Stop 07/25/16 at 07:04; Status DC Iron Sucrose 500 mg/Sodium Chloride 275 ml @ 78.571 mls/ hr 1X ONCE IV Last administered on 07/24/16 17:56; Start 07/24/16 at 18:00; Stop 07/24/16 at 21:29; Status DC Norepinephrine Bitartrate 8 mg/ Sodium Chloride 258 ml @ 0 mls/hr CONT PRN IV SEE I/O RECORD Last administered on 07/25/16 03:13; Start 07/24/16 at 21:00 Midazolam HCl 100 ml @ As Directed STK-MED ONCE IV ; Start 07/24/16 at 21:50; Stop 07/24/16 at 21:51; Status DC Dopamine HCl/ Dextrose 250 ml @ 18.371 mls/ hr CONT PRN IV SEE I/O RECORD Last administered on 07/25/16 06:23; Start 07/24/16 at 22:30 Midazolam HCl 100 ml @ 0 mls/hr CONT PRN IV SEE I/O RECORD Last administered on 07/25/16 06:03; Start 07/24/16 at 23:45 Sodium Chloride 1,000 ml @ 100 mls/hr Q10H IV Last administered on 07/25/16 06 :23; Start 07/25/16 at 06:30 Piperacillin Sod/ Tazobactam Sod 2.25 gm/Sodium Chloride 50 ml @ 100 mls/hr Q6HRS IV Last administered on 07/25/16 08:23; Start 07/25/16 at 07:30 Micafungin Sodium 100 mg/Dextrose 100 ml @ 100 mls/hr Q24H IV Last administered on 07/25/16 09:37; Start 07/25/16 at 08:00 Linezolid (Zyvox Premix) 300 ml @ 300 mls/hr Q12HR IV Last administered on 07/25 09:37; Start 07/25/16 at 09:00 Acetaminophen 650 mg 650 mg PRN Q6HRS PRN DE MILD PAIN / TEMP; Start 07/25/16 at 07:15 Acyclovir Sodium/ Dextrose (Zovirax) 261 ml @ 261 mls/hr Q12HR IV Last administered on 07/25/16 09:36; Start 07/25/16 at 09:00 Epinephrine HCl (Adrenalin) 30 mg STK-MED ONCE .ROUTE ; Start 07/24/16 at 12:00; Stop 07/25/16 at 11:31; Status DC Calcium Chloride 1,000 mg STK-MED ONCE IV ; Start 07/24/16 at 12:00; Stop at 11:31; Status DC Epinephrine HCl 1 mg STK-MED ONCE .ROUTE ; Start 07/24/16 at 12:00; Stop 07/25/16 at 11:31; Status DC Sodium Bicarbonate 100 meq STK-MED ONCE .ROUTE ; Start 07/24/16 at 12:00; Stop at 11:31; Status DC Dopamine HCl/ Dextrose 400 mg STK-MED ONCE IV ; Start 07/24/16 at 12:00; Stop 07/25/16 at 11:31; Status DC Active Scripts Active Duoneb 0.5-3(2.5) Mg/3 Ml (Albuterol/Ipratropium) 3 Ml Ampul.neb 3 Ml NEB RTQID Amlodipine Besylate 10 Mg Tablet 10 Mg PO BID 30 Days Diltiazem 24Hr Cd (Diltiazem HCl) 180 Mg Cap.er.24h 180 Mg PO DAILY 30 Days Clopidogrel (Clopidogrel Bisulfate) 75 Mg Tablet 75 Mg PO DAILYWBKFT 30 Days Saline Mist (Sodium Chloride) 45 Ml [place] 1 Chad NS PRN Q1HR PRN 30 Days Carvedilol 12.5 Mg Tablet 12.5 Mg PO BIDWMEALS 30 Days Children's Aspirin (Aspirin) 81 Mg Tab.chew 81 Mg PO DAILYWBKFT 30 Days Novolog Flexpen (Insulin Aspart) 100 Unit/1 Ml Insuln.pen 15 Units SQ TIDAC Levemir Flextouch (Insulin Detemir) 100 Unit/1 Ml Insuln.pen 45 Units SQ QHS Cyclobenzaprine Hcl 10 Mg Tablet 10 Mg PO PRN TID PRN Hydrocodone-Apap 7.5-325 (Hydrocodone Bit/Acetaminophen) 1 Each Tablet 1-2 Tab PO PRN TID PRN Ventolin Hfa Inhaler (Albuterol Sulfate) 18 Gm Hfa.aer.ad 2 Puff IH PRN Q4-6HRS Albuterol Sulfate Neb Soln (Albuterol Sulfate) 2.5 Mg/3 Ml Vial.neb 1 Vial NEB PRN Q4HRS Alprazolam 0.5 Mg Tablet 0.5 Mg PO BID PRN Reported Lisinopril 2.5 Mg Tablet 2.5 Mg PO DAILY Carvedilol 6.25 Mg Tablet 6.25 Mg PO BIDWMEALS Ondansetron Odt (Ondansetron) 4 Mg Tab.rapdis 4 Mg PO Q8HRS PRN Breo Ellipta 100-25 Mcg Inh (Fluticasone/Vilanterol) 1 Each Aer.pow.ba 1 Puff IH DAILY Lipitor (Atorvastatin Calcium) 20 Mg Tablet 20 Mg PO HS Advair 250-50 Diskus (Fluticasone/Salmeterol) 1 Each Disk.w.dev 2 Puff INH BID Bumetanide 2 Mg Tablet 2 Mg PO BID Spironolactone 25 Mg Tablet 25 Mg PO DAILY Allergies Allergies: Coded Allergies: adhesive (Verified Allergy, Intermediate, rash, 09/18/15) metformin (Verified Allergy, Intermediate, rash, 04/15/16) ROS Review of System UNABLE TO OBTAIN Physical Exam General: Other (SEDATED) HEENT: Other (ET TUBE IN PLACE) Abdomen: No tenderness Extremities: No cyanosis Skin: No breakdown Neuro: Other (SEDATED) Psych/Mental Status: Other (SEDATED) MUSCULOSKELETAL: No joint tenderness, No deformity Vitals VITALS Vital Signs Date Time Temp Pulse Resp B/P Pulse Ox O2 Delivery O2 Flow Rate FiO2 07/25/16 11:28 93 Ventilator 07/25/16 06:00 102.7 123 22 89/46 102.7 07/24/16 15:37 2.0 Labs Labs Laboratory Tests Test 07/23/16 13:01 07/23/16 13:05 07/23/16 16:18 07/23/16 20:53 Glucose (Fingerstick) 92mg/dL (70-99) 146mg/dL (70-99) 167mg/dL (70-99) Erythrocyte Sedimentation Rate 85 (0-25) Creatine Kinase 354U/L (26-192) Vitamin B12 Level 1510pg/mL (247-911) Thyroid Stimulating Hormone (TSH) 1.124uIU/mL (0.358-3.74) Test 07/24/16 06:22 07/24/16 09:10 07/24/16 09:55 07/24/16 11:50 White Blood Count 12.1x10^3/uL (4.0-11.0) Red Blood Count 3.76x10^6/uL (3.50-5.40) Hemoglobin 8.9g/dL (12.0-15.5) Hematocrit 28.6% (36.0-47.0) Mean Corpuscular Volume 76fL (79-100) Mean Corpuscular Hemoglobin 24pg (25-35) Mean Corpuscular Hemoglobin Concent 31g/dL (31-37) Red Cell Distribution Width 20.1% (11.5-14.5) Platelet Count 349x10^3/uL (140-400) Neutrophils (%) (Auto) 80% (31-73) Lymphocytes (%) (Auto) 9% (24-48) Monocytes (%) (Auto) 11% (0-9) Eosinophils (%) (Auto) 0% (0-3) Basophils (%) (Auto) 0% (0-3) Neutrophils # (Auto) 9.7x10^3uL (1.8-7.7) Lymphocytes # (Auto) 1.0x10^3/uL (1.0-4.8) Monocytes # (Auto) 1.3x10^3/uL (0.0-1.1) Eosinophils # (Auto) 0.0x10^3/uL (0.0-0.7) Basophils # (Auto) 0.0x10^3/uL (0.0-0.2) Sodium Level 128mmol/L (136-145) Potassium Level 5.0mmol/L (3.5-5.1) Chloride Level 90mmol/L (98-107) Carbon Dioxide Level 26mmol/L (21-32) Anion Gap 12 (6-14) Blood Urea Nitrogen 80mg/dL (7-20) Creatinine 2.1mg/dL (0.6-1.0) Estimated GFR (Cockcroft-Gault) 29.7 BUN/Creatinine Ratio 38 (6-20) Glucose Level 145mg/dL (70-99) Calcium Level 9.4mg/dL (8.5-10.1) Total Bilirubin 2.5mg/dL (0.2-1.0) Aspartate Amino Transf (AST/SGOT) 47U/L (15-37) Alanine Aminotransferase (ALT/SGPT) 17U/L (14-59) Alkaline Phosphatase 177U/L (46-116) Total Protein 7.6g/dL (6.4-8.2) Albumin 2.8g/dL (3.4-5.0) Albumin/Globulin Ratio 0.6 (1.0-1.7) Glucose (Fingerstick) 158mg/dL (70-99) 206mg/dL (70-99) Iron Level 19ug/dL (50-170) Total Iron Binding Capacity 449ug/dL (250-450) Iron Saturation 4% (15-34) Ferritin 67ng/mL (8-252) Test 07/24/16 16:44 07/24/16 21:14 07/24/16 21:20 07/25/16 04:45 Glucose (Fingerstick) 257mg/dL (70-99) O2 Saturation 96% (92-99) Arterial Blood pH 7.44 (7.35-7.45) Arterial Blood pCO2 at Patient Temp 44mmHg (35-46) Arterial Blood pO2 at Patient Temp 83mmHg (75-108) Arterial Blood HCO3 30mmol/L (21-28) Arterial Blood Base Excess 5mmol/L (-3-3) FiO2 100 White Blood Count 13.4x10^3/uL (4.0-11.0) 16.6x10^3/uL (4.0-11.0) Red Blood Count 4.10x10^6/uL (3.50-5.40) 4.24x10^6/uL (3.50-5.40) Hemoglobin 9.6g/dL (12.0-15.5) 10.0g/dL (12.0-15.5) Hematocrit 31.2% (36.0-47.0) 32.9% (36.0-47.0) Mean Corpuscular Volume 76fL (79-100) 78fL (79-100) Mean Corpuscular Hemoglobin 23pg (25-35) 24pg (25-35) Mean Corpuscular Hemoglobin Concent 31g/dL (31-37) 30g/dL (31-37) Red Cell Distribution Width 20.7% (11.5-14.5) 20.9% (11.5-14.5) Platelet Count 397x10^3/uL (140-400) 496x10^3/uL (140-400) Prothrombin Time 17.2SEC (11.7-14.0) Prothromb Time International Ratio 1.5 (0.8-1.1) Sodium Level 133mmol/L (136-145) 136mmol/L (136-145) Potassium Level 4.5mmol/L (3.5-5.1) 4.9mmol/L (3.5-5.1) Chloride Level 91mmol/L (98-107) 94mmol/L (98-107) Carbon Dioxide Level 32mmol/L (21-32) 28mmol/L (21-32) Anion Gap 10 (6-14) 14 (6-14) Blood Urea Nitrogen 86mg/dL (7-20) 89mg/dL (7-20) Creatinine 2.3mg/dL (0.6-1.0) 2.5mg/dL (0.6-1.0) Estimated GFR (Cockcroft-Gault) 26.7 24.3 BUN/Creatinine Ratio 37 (6-20) Glucose Level 217mg/dL (70-99) 251mg/dL (70-99) Calcium Level 9.4mg/dL (8.5-10.1) 9.2mg/dL (8.5-10.1) Magnesium Level 2.5mg/dL (1.8-2.4) Total Bilirubin 2.7mg/dL (0.2-1.0) Aspartate Amino Transf (AST/SGOT) 60U/L (15-37) Alanine Aminotransferase (ALT/SGPT) 32U/L (14-59) Alkaline Phosphatase 200U/L (46-116) Total Protein 7.4g/dL (6.4-8.2) Albumin 2.6g/dL (3.4-5.0) Albumin/Globulin Ratio 0.5 (1.0-1.7) Neutrophils (%) (Auto) 85% (31-73) Lymphocytes (%) (Auto) 6% (24-48) Monocytes (%) (Auto) 10% (0-9) Eosinophils (%) (Auto) 0% (0-3) Basophils (%) (Auto) 0% (0-3) Neutrophils # (Auto) 14.0x10^3uL (1.8-7.7) Lymphocytes # (Auto) 0.9x10^3/uL (1.0-4.8) Monocytes # (Auto) 1.6x10^3/uL (0.0-1.1) Eosinophils # (Auto) 0.0x10^3/uL (0.0-0.7) Basophils # (Auto) 0.0x10^3/uL (0.0-0.2) Segmented Neutrophils % 65% (35-66) Band Neutrophils % 10% (0-9) Lymphocytes % 17% (24-48) Monocytes % 8% (0-10) Nucleated Red Blood Cells 2 Platelet Estimate Increased (ADEQUATE) Polychromasia Present Hypochromasia Present Anisocytosis Present Microcytosis Present Macrocytosis Present Target Cells Present Test 07/25/16 08:00 07/25/16 08:23 07/25/16 08:31 07/25/16 09:00 O2 Saturation 89% (92-99) 89% (92-99) Arterial Blood pH 7.45 (7.35-7.45) 7.44 (7.35-7.45) Arterial Blood pH (Temp corrected) 7.42 Arterial Blood pCO2 at Patient Temp 36mmHg (35-46) 40mmHg (35-46) Arterial Blood pCO2 (Temp correct) 40mmHg Arterial Blood pO2 at Patient Temp 59mmHg (75-108) 60mmHg (75-108) Arterial Blood pO2 (Temp corrected) 69mmHg Arterial Blood HCO3 24mmol/L (21-28) 27mmol/L (21-28) Arterial Blood Base Excess 1mmol/L (-3-3) 3mmol/L (-3-3) FiO2 100 100 Glucose (Fingerstick) 248mg/dL (70-99) Lactic Acid Level 2.5mmol/L (0.4-2.0) Test 07/25/16 10:15 Influenza Type A Antigen Negative (NEGATIVE) Influenza Type B Antigen Negative (NEGATIVE) Laboratory Tests Test 07/24/16 16:44 07/24/16 21:14 07/24/16 21:20 07/25/16 04:45 Glucose (Fingerstick) 257mg/dL (70-99) O2 Saturation 96% (92-99) Arterial Blood pH 7.44 (7.35-7.45) Arterial Blood pCO2 at Patient Temp 44mmHg (35-46) Arterial Blood pO2 at Patient Temp 83mmHg (75-108) Arterial Blood HCO3 30mmol/L (21-28) Arterial Blood Base Excess 5mmol/L (-3-3) FiO2 100 White Blood Count 13.4x10^3/uL (4.0-11.0) 16.6x10^3/uL (4.0-11.0) Red Blood Count 4.10x10^6/uL (3.50-5.40) 4.24x10^6/uL (3.50-5.40) Hemoglobin 9.6g/dL (12.0-15.5) 10.0g/dL (12.0-15.5) Hematocrit 31.2% (36.0-47.0) 32.9% (36.0-47.0) Mean Corpuscular Volume 76fL (79-100) 78fL (79-100) Mean Corpuscular Hemoglobin 23pg (25-35) 24pg (25-35) Mean Corpuscular Hemoglobin Concent 31g/dL (31-37) 30g/dL (31-37) Red Cell Distribution Width 20.7% (11.5-14.5) 20.9% (11.5-14.5) Platelet Count 397x10^3/uL (140-400) 496x10^3/uL (140-400) Prothrombin Time 17.2SEC (11.7-14.0) Prothromb Time International Ratio 1.5 (0.8-1.1) Sodium Level 133mmol/L (136-145) 136mmol/L (136-145) Potassium Level 4.5mmol/L (3.5-5.1) 4.9mmol/L (3.5-5.1) Chloride Level 91mmol/L (98-107) 94mmol/L (98-107) Carbon Dioxide Level 32mmol/L (21-32) 28mmol/L (21-32) Anion Gap 10 (6-14) 14 (6-14) Blood Urea Nitrogen 86mg/dL (7-20) 89mg/dL (7-20) Creatinine 2.3mg/dL (0.6-1.0) 2.5mg/dL (0.6-1.0) Estimated GFR (Cockcroft-Gault) 26.7 24.3 BUN/Creatinine Ratio 37 (6-20) Glucose Level 217mg/dL (70-99) 251mg/dL (70-99) Calcium Level 9.4mg/dL (8.5-10.1) 9.2mg/dL (8.5-10.1) Magnesium Level 2.5mg/dL (1.8-2.4) Total Bilirubin 2.7mg/dL (0.2-1.0) Aspartate Amino Transf (AST/SGOT) 60U/L (15-37) Alanine Aminotransferase (ALT/SGPT) 32U/L (14-59) Alkaline Phosphatase 200U/L (46-116) Total Protein 7.4g/dL (6.4-8.2) Albumin 2.6g/dL (3.4-5.0) Albumin/Globulin Ratio 0.5 (1.0-1.7) Neutrophils (%) (Auto) 85% (31-73) Lymphocytes (%) (Auto) 6% (24-48) Monocytes (%) (Auto) 10% (0-9) Eosinophils (%) (Auto) 0% (0-3) Basophils (%) (Auto) 0% (0-3) Neutrophils # (Auto) 14.0x10^3uL (1.8-7.7) Lymphocytes # (Auto) 0.9x10^3/uL (1.0-4.8) Monocytes # (Auto) 1.6x10^3/uL (0.0-1.1) Eosinophils # (Auto) 0.0x10^3/uL (0.0-0.7) Basophils # (Auto) 0.0x10^3/uL (0.0-0.2) Segmented Neutrophils % 65% (35-66) Band Neutrophils % 10% (0-9) Lymphocytes % 17% (24-48) Monocytes % 8% (0-10) Nucleated Red Blood Cells 2 Platelet Estimate Increased (ADEQUATE) Polychromasia Present Hypochromasia Present Anisocytosis Present Microcytosis Present Macrocytosis Present Target Cells Present Test 07/25/16 08:00 07/25/16 08:23 07/25/16 08:31 07/25/16 09:00 O2 Saturation 89% (92-99) 89% (92-99) Arterial Blood pH 7.45 (7.35-7.45) 7.44 (7.35-7.45) Arterial Blood pH (Temp corrected) 7.42 Arterial Blood pCO2 at Patient Temp 36mmHg (35-46) 40mmHg (35-46) Arterial Blood pCO2 (Temp correct) 40mmHg Arterial Blood pO2 at Patient Temp 59mmHg (75-108) 60mmHg (75-108) Arterial Blood pO2 (Temp corrected) 69mmHg Arterial Blood HCO3 24mmol/L (21-28) 27mmol/L (21-28) Arterial Blood Base Excess 1mmol/L (-3-3) 3mmol/L (-3-3) FiO2 100 100 Glucose (Fingerstick) 248mg/dL (70-99) Lactic Acid Level 2.5mmol/L (0.4-2.0) Test 07/25/16 10:15 Influenza Type A Antigen Negative (NEGATIVE) Influenza Type B Antigen Negative (NEGATIVE) Assessment/Plan Assessment/Plan IMP JUAN DIEGO-UO HAS BEEN GOOD HYPOTENSION S/P CODE BLUE RESP FAILURE CKD STAGE 2 WITH NORMAL CR AT BASELINE URINARY RETENTION CM WITH CHF PLEURAL EFFUSION PLAN VOLUME EXPAND PRESSORS NEEDED ANTIBIOTICS MAINTAIN CHANDRA STOP LISINOPRIL ATTEMPT TO DIURESE ON EMPIRIC ANTIBIOTICS, ANTIFUNGALS AND ACYCLOVIR D/W ID [id number] CALVILLO MD Jul 25, 2016 12:34
--- NOTE | 2016-07-25 13:01 | PDOC ---
PROGRESS NOTES Subjective Subjective She stopped breathing last smiley and code blue called and resuscitated and transferred to ICU and now on pressors, intubated, sedated but has developed a fever and likely sepsis and acute renal failure. Family present. Multiple consultants involved Objective Objective Vital Signs Date Time Temp Pulse Resp B/P Pulse Ox O2 Delivery O2 Flow Rate FiO2 07/25/16 11:28 93 Ventilator 07/25/16 06:00 102.7 123 22 89/46 102.7 07/24/16 15:37 2.0 Intake and Output 07/25/16 07:00 Intake Total 2862 ml Output Total 1700 ml Balance 1162 ml Intake Oral 250 ml IV Total 2612 ml Output Urine Total 1400 ml Gastric Drainage Total 300 ml # Bowel Movements 1 Physical Exam Abdomen: Soft Heart: Other (tachy but regular) Extremities: No clubbing, No cyanosis General: Other (sedated) HEENT: Other (intubated) Lungs: Other (diminished right base but bilateral breath sounds heard) Neuro: Other (unable to assess) Skin: No breakdown Assessment Assessment Problems Medical Problems: 1. s/p code blue for pulselessness, resuscitated and now intubated and sedated 2. sepsis - now on IV antibiotics, IV antifungals and IV antiviral meds, ID following 3. acute renal failure - renal consulted 4. hematuria - urology following, UA has been negative for infection 5. diabetes type 2- on fpc insulin, will stop routiine bolus insulin and use SSI and decrease basal dose for now 6. acute on chronic heart failure - she has refused AICD in the past 7. encephalopathy with normal EEG 07/24/16 - neurology following 8. recurrent right pleural effusion - s/p thoracentesis last week at [facility] with negative cultures and no malignant cells 9. hx of chronic anxiety - now sedated 10. hx of chronic marijuana use Comment Review of Relevant I have reviewed the following items mary (where applicable) has been applied. Labs Laboratory Tests Test 07/23/16 13:01 07/23/16 13:05 07/23/16 16:18 07/23/16 20:53 Glucose (Fingerstick) 92mg/dL (70-99) 146mg/dL (70-99) 167mg/dL (70-99) Erythrocyte Sedimentation Rate 85 (0-25) Creatine Kinase 354U/L (26-192) Vitamin B12 Level 1510pg/mL (247-911) Thyroid Stimulating Hormone (TSH) 1.124uIU/mL (0.358-3.74) Test 07/24/16 06:22 07/24/16 09:10 07/24/16 09:55 07/24/16 11:50 White Blood Count 12.1x10^3/uL (4.0-11.0) Red Blood Count 3.76x10^6/uL (3.50-5.40) Hemoglobin 8.9g/dL (12.0-15.5) Hematocrit 28.6% (36.0-47.0) Mean Corpuscular Volume 76fL (79-100) Mean Corpuscular Hemoglobin 24pg (25-35) Mean Corpuscular Hemoglobin Concent 31g/dL (31-37) Red Cell Distribution Width 20.1% (11.5-14.5) Platelet Count 349x10^3/uL (140-400) Neutrophils (%) (Auto) 80% (31-73) Lymphocytes (%) (Auto) 9% (24-48) Monocytes (%) (Auto) 11% (0-9) Eosinophils (%) (Auto) 0% (0-3) Basophils (%) (Auto) 0% (0-3) Neutrophils # (Auto) 9.7x10^3uL (1.8-7.7) Lymphocytes # (Auto) 1.0x10^3/uL (1.0-4.8) Monocytes # (Auto) 1.3x10^3/uL (0.0-1.1) Eosinophils # (Auto) 0.0x10^3/uL (0.0-0.7) Basophils # (Auto) 0.0x10^3/uL (0.0-0.2) Sodium Level 128mmol/L (136-145) Potassium Level 5.0mmol/L (3.5-5.1) Chloride Level 90mmol/L (98-107) Carbon Dioxide Level 26mmol/L (21-32) Anion Gap 12 (6-14) Blood Urea Nitrogen 80mg/dL (7-20) Creatinine 2.1mg/dL (0.6-1.0) Estimated GFR (Cockcroft-Gault) 29.7 BUN/Creatinine Ratio 38 (6-20) Glucose Level 145mg/dL (70-99) Calcium Level 9.4mg/dL (8.5-10.1) Total Bilirubin 2.5mg/dL (0.2-1.0) Aspartate Amino Transf (AST/SGOT) 47U/L (15-37) Alanine Aminotransferase (ALT/SGPT) 17U/L (14-59) Alkaline Phosphatase 177U/L (46-116) Total Protein 7.6g/dL (6.4-8.2) Albumin 2.8g/dL (3.4-5.0) Albumin/Globulin Ratio 0.6 (1.0-1.7) Glucose (Fingerstick) 158mg/dL (70-99) 206mg/dL (70-99) Iron Level 19ug/dL (50-170) Total Iron Binding Capacity 449ug/dL (250-450) Iron Saturation 4% (15-34) Ferritin 67ng/mL (8-252) Test 07/24/16 16:44 07/24/16 21:14 07/24/16 21:20 07/25/16 04:45 Glucose (Fingerstick) 257mg/dL (70-99) O2 Saturation 96% (92-99) Arterial Blood pH 7.44 (7.35-7.45) Arterial Blood pCO2 at Patient Temp 44mmHg (35-46) Arterial Blood pO2 at Patient Temp 83mmHg (75-108) Arterial Blood HCO3 30mmol/L (21-28) Arterial Blood Base Excess 5mmol/L (-3-3) FiO2 100 White Blood Count 13.4x10^3/uL (4.0-11.0) 16.6x10^3/uL (4.0-11.0) Red Blood Count 4.10x10^6/uL (3.50-5.40) 4.24x10^6/uL (3.50-5.40) Hemoglobin 9.6g/dL (12.0-15.5) 10.0g/dL (12.0-15.5) Hematocrit 31.2% (36.0-47.0) 32.9% (36.0-47.0) Mean Corpuscular Volume 76fL (79-100) 78fL (79-100) Mean Corpuscular Hemoglobin 23pg (25-35) 24pg (25-35) Mean Corpuscular Hemoglobin Concent 31g/dL (31-37) 30g/dL (31-37) Red Cell Distribution Width 20.7% (11.5-14.5) 20.9% (11.5-14.5) Platelet Count 397x10^3/uL (140-400) 496x10^3/uL (140-400) Prothrombin Time 17.2SEC (11.7-14.0) Prothromb Time International Ratio 1.5 (0.8-1.1) Sodium Level 133mmol/L (136-145) 136mmol/L (136-145) Potassium Level 4.5mmol/L (3.5-5.1) 4.9mmol/L (3.5-5.1) Chloride Level 91mmol/L (98-107) 94mmol/L (98-107) Carbon Dioxide Level 32mmol/L (21-32) 28mmol/L (21-32) Anion Gap 10 (6-14) 14 (6-14) Blood Urea Nitrogen 86mg/dL (7-20) 89mg/dL (7-20) Creatinine 2.3mg/dL (0.6-1.0) 2.5mg/dL (0.6-1.0) Estimated GFR (Cockcroft-Gault) 26.7 24.3 BUN/Creatinine Ratio 37 (6-20) Glucose Level 217mg/dL (70-99) 251mg/dL (70-99) Calcium Level 9.4mg/dL (8.5-10.1) 9.2mg/dL (8.5-10.1) Magnesium Level 2.5mg/dL (1.8-2.4) Total Bilirubin 2.7mg/dL (0.2-1.0) Aspartate Amino Transf (AST/SGOT) 60U/L (15-37) Alanine Aminotransferase (ALT/SGPT) 32U/L (14-59) Alkaline Phosphatase 200U/L (46-116) Total Protein 7.4g/dL (6.4-8.2) Albumin 2.6g/dL (3.4-5.0) Albumin/Globulin Ratio 0.5 (1.0-1.7) Neutrophils (%) (Auto) 85% (31-73) Lymphocytes (%) (Auto) 6% (24-48) Monocytes (%) (Auto) 10% (0-9) Eosinophils (%) (Auto) 0% (0-3) Basophils (%) (Auto) 0% (0-3) Neutrophils # (Auto) 14.0x10^3uL (1.8-7.7) Lymphocytes # (Auto) 0.9x10^3/uL (1.0-4.8) Monocytes # (Auto) 1.6x10^3/uL (0.0-1.1) Eosinophils # (Auto) 0.0x10^3/uL (0.0-0.7) Basophils # (Auto) 0.0x10^3/uL (0.0-0.2) Segmented Neutrophils % 65% (35-66) Band Neutrophils % 10% (0-9) Lymphocytes % 17% (24-48) Monocytes % 8% (0-10) Nucleated Red Blood Cells 2 Platelet Estimate Increased (ADEQUATE) Polychromasia Present Hypochromasia Present Anisocytosis Present Microcytosis Present Macrocytosis Present Target Cells Present Test 07/25/16 08:00 07/25/16 08:23 07/25/16 08:31 07/25/16 09:00 O2 Saturation 89% (92-99) 89% (92-99) Arterial Blood pH 7.45 (7.35-7.45) 7.44 (7.35-7.45) Arterial Blood pH (Temp corrected) 7.42 Arterial Blood pCO2 at Patient Temp 36mmHg (35-46) 40mmHg (35-46) Arterial Blood pCO2 (Temp correct) 40mmHg Arterial Blood pO2 at Patient Temp 59mmHg (75-108) 60mmHg (75-108) Arterial Blood pO2 (Temp corrected) 69mmHg Arterial Blood HCO3 24mmol/L (21-28) 27mmol/L (21-28) Arterial Blood Base Excess 1mmol/L (-3-3) 3mmol/L (-3-3) FiO2 100 100 Glucose (Fingerstick) 248mg/dL (70-99) Lactic Acid Level 2.5mmol/L (0.4-2.0) Test 3/3/17 10:15 07/25/16 10:40 Influenza Type A Antigen Negative (NEGATIVE) Influenza Type B Antigen Negative (NEGATIVE) Urine Collection Type Unknown Urine Color Yellow Urine Clarity Clear Urine pH 6.0 Urine Specific [place] 1.010 Urine Protein 30mg/dL (NEG-TRACE) Urine Glucose (UA) Negativemg/dL (NEG) Urine Ketones (Stick) Tracemg/dL (NEG) Urine Blood Large (NEG) Urine Nitrite Negative (NEG) Urine Bilirubin Negative (NEG) Urine Urobilinogen Dipstick 1.0mg/dL (0.2 mg/dL) Urine Leukocyte Esterase Small (NEG) Urine RBC Tntc/HPF (0-2) Urine WBC 0/HPF (0-4) Urine Bacteria 0/HPF (0-FEW) Urine Hyaline Casts Few/HPF Urine Granular Casts Occasional/HPF Urine Waxy Casts Few/HPF Urine Mucus Slight/LPF Laboratory Tests Test 07/24/16 16:44 07/24/16 21:14 07/24/16 21:20 07/25/16 04:45 Glucose (Fingerstick) 257mg/dL (70-99) O2 Saturation 96% (92-99) Arterial Blood pH 7.44 (7.35-7.45) Arterial Blood pCO2 at Patient Temp 44mmHg (35-46) Arterial Blood pO2 at Patient Temp 83mmHg (75-108) Arterial Blood HCO3 30mmol/L (21-28) Arterial Blood Base Excess 5mmol/L (-3-3) FiO2 100 White Blood Count 13.4x10^3/uL (4.0-11.0) 16.6x10^3/uL (4.0-11.0) Red Blood Count 4.10x10^6/uL (3.50-5.40) 4.24x10^6/uL (3.50-5.40) Hemoglobin 9.6g/dL (12.0-15.5) 10.0g/dL (12.0-15.5) Hematocrit 31.2% (36.0-47.0) 32.9% (36.0-47.0) Mean Corpuscular Volume 76fL (79-100) 78fL (79-100) Mean Corpuscular Hemoglobin 23pg (25-35) 24pg (25-35) Mean Corpuscular Hemoglobin Concent 31g/dL (31-37) 30g/dL (31-37) Red Cell Distribution Width 20.7% (11.5-14.5) 20.9% (11.5-14.5) Platelet Count 397x10^3/uL (140-400) 496x10^3/uL (140-400) Prothrombin Time 17.2SEC (11.7-14.0) Prothromb Time International Ratio 1.5 (0.8-1.1) Sodium Level 133mmol/L (136-145) 136mmol/L (136-145) Potassium Level 4.5mmol/L (3.5-5.1) 4.9mmol/L (3.5-5.1) Chloride Level 91mmol/L (98-107) 94mmol/L (98-107) Carbon Dioxide Level 32mmol/L (21-32) 28mmol/L (21-32) Anion Gap 10 (6-14) 14 (6-14) Blood Urea Nitrogen 86mg/dL (7-20) 89mg/dL (7-20) Creatinine 2.3mg/dL (0.6-1.0) 2.5mg/dL (0.6-1.0) Estimated GFR (Cockcroft-Gault) 26.7 24.3 BUN/Creatinine Ratio 37 (6-20) Glucose Level 217mg/dL (70-99) 251mg/dL (70-99) Calcium Level 9.4mg/dL (8.5-10.1) 9.2mg/dL (8.5-10.1) Magnesium Level 2.5mg/dL (1.8-2.4) Total Bilirubin 2.7mg/dL (0.2-1.0) Aspartate Amino Transf (AST/SGOT) 60U/L (15-37) Alanine Aminotransferase (ALT/SGPT) 32U/L (14-59) Alkaline Phosphatase 200U/L (46-116) Total Protein 7.4g/dL (6.4-8.2) Albumin 2.6g/dL (3.4-5.0) Albumin/Globulin Ratio 0.5 (1.0-1.7) Neutrophils (%) (Auto) 85% (31-73) Lymphocytes (%) (Auto) 6% (24-48) Monocytes (%) (Auto) 10% (0-9) Eosinophils (%) (Auto) 0% (0-3) Basophils (%) (Auto) 0% (0-3) Neutrophils # (Auto) 14.0x10^3uL (1.8-7.7) Lymphocytes # (Auto) 0.9x10^3/uL (1.0-4.8) Monocytes # (Auto) 1.6x10^3/uL (0.0-1.1) Eosinophils # (Auto) 0.0x10^3/uL (0.0-0.7) Basophils # (Auto) 0.0x10^3/uL (0.0-0.2) Segmented Neutrophils % 65% (35-66) Band Neutrophils % 10% (0-9) Lymphocytes % 17% (24-48) Monocytes % 8% (0-10) Nucleated Red Blood Cells 2 Platelet Estimate Increased (ADEQUATE) Polychromasia Present Hypochromasia Present Anisocytosis Present Microcytosis Present Macrocytosis Present Target Cells Present Test 07/25/16 08:00 07/25/16 08:23 07/25/16 08:31 07/25/16 09:00 O2 Saturation 89% (92-99) 89% (92-99) Arterial Blood pH 7.45 (7.35-7.45) 7.44 (7.35-7.45) Arterial Blood pH (Temp corrected) 7.42 Arterial Blood pCO2 at Patient Temp 36mmHg (35-46) 40mmHg (35-46) Arterial Blood pCO2 (Temp correct) 40mmHg Arterial Blood pO2 at Patient Temp 59mmHg (75-108) 60mmHg (75-108) Arterial Blood pO2 (Temp corrected) 69mmHg Arterial Blood HCO3 24mmol/L (21-28) 27mmol/L (21-28) Arterial Blood Base Excess 1mmol/L (-3-3) 3mmol/L (-3-3) FiO2 100 100 Glucose (Fingerstick) 248mg/dL (70-99) Lactic Acid Level 2.5mmol/L (0.4-2.0) Test 07/25/16 10:15 07/25/16 10:40 Influenza Type A Antigen Negative (NEGATIVE) Influenza Type B Antigen Negative (NEGATIVE) Urine Collection Type Unknown Urine Color Yellow Urine Clarity Clear Urine pH 6.0 Urine Specific [place] 1.010 Urine Protein 30mg/dL (NEG-TRACE) Urine Glucose (UA) Negativemg/dL (NEG) Urine Ketones (Stick) Tracemg/dL (NEG) Urine Blood Large (NEG) Urine Nitrite Negative (NEG) Urine Bilirubin Negative (NEG) Urine Urobilinogen Dipstick 1.0mg/dL (0.2 mg/dL) Urine Leukocyte Esterase Small (NEG) Urine RBC Tntc/HPF (0-2) Urine WBC 0/HPF (0-4) Urine Bacteria 0/HPF (0-FEW) Urine Hyaline Casts Few/HPF Urine Granular Casts Occasional/HPF Urine Waxy Casts Few/HPF Urine Mucus Slight/LPF Microbiology 07/21/16 Blood Culture - Preliminary, Resulted NO GROWTH AFTER 3 DAYS Medications Current Medications Sodium Chloride (Iv Sodium Chloride 0.9% 500ml Bag) 500 ml @ 0 mls/hr 1X ONCE IV Last administered on 07/21/16 18:32; Start 07/21/16 at 17:45; Stop at 17:46; Status DC Lorazepam (Ativan) 2 mg STK-MED ONCE .ROUTE ; Start 07/21/16 at 19:13; Stop at 19:14; Status DC Ondansetron HCl (Zofran) 4 mg PRN Q8HRS PRN IV NAUSEA/VOMITING; Start 07/21/16 at 19:15; Stop 07/22/16 at 19:14; Status DC Fentanyl Citrate (Fentanyl 2ml Vial) 50 mcg PRN Q1HR PRN IV PAIN Last administered on 07/22/16 19:08; Start 07/21/16 at 19:15; Stop 07/22/16 at 19:14 ; Status DC Acetaminophen (Tylenol) 650 mg PRN Q4HRS PRN PO FEVER; Start 07/21/16 at 19:15 ; Stop 07/22/16 at 19:14; Status DC Albuterol/ Ipratropium (Duoneb) 3 ml RTQID NEB Last administered on 07/22/16 07:42; Start 07/21/16 at 20:00; Stop 07/22/16 at 08:40; Status DC Lorazepam (Ativan) 2 mg 1X ONCE IV Last administered on 07/21/16 19:19; Start 07/21/16 at 19:15; Stop 07/21/16 at 19:17; Status DC Lorazepam (Ativan) 2 mg 1X ONCE IV ; Start 07/21/16 at 23:55; Stop 07/21/16 at 23:56; Status DC Albuterol Sulfate (Ventolin Neb Soln) 2.5 mg PRN Q4HRS PRN NEB SHORTNESS OF BREATH Last administered on 07/24/16 21:37; Start 07/22/16 at 08:30 Alprazolam (Xanax) 0.5 mg PRN BID PRN PO ANXIETY / AGITATION Last administered on 07/24/16 00:46; Start 07/22/16 at 08:30; Stop 07/25/16 at 12:34; Status DC Amlodipine Besylate (Norvasc) 10 mg BID PO Last administered on 07/22/16 10:06 ; Start 07/22/16 at 09:00; Stop 07/25/16 at 12:34; Status DC Aspirin (Children'S Aspirin) 81 mg DAILYWBKFT PO Last administered on 07/24/16 09:07; Start 07/22/16 at 09:00; Stop 07/25/16 at 12:34; Status DC Atorvastatin Calcium (Lipitor) 20 mg HS PO ; Start 07/22/16 at 21:00 Carvedilol (Coreg) 6.25 mg BIDWMEALS PO Last administered on 07/22/16 18:25; Start 07/22/16 at 09:00 Carvedilol (Coreg) 12.5 mg BIDWMEALS PO ; Start 07/22/16 at 17:00; Status UNV Clopidogrel Bisulfate (Plavix) 75 mg DAILYWBKFT PO Last administered on 09:07; Start 07/22/16 at 09:00 Diltiazem HCl (Cardizem 24hr Cd) 180 mg DAILY PO ; Start 07/22/16 at 09:00 Acetaminophen/ Hydrocodone Bitart (Lortab 7.5/325) 1 tab PRN TID PRN PO PAIN Last administered on 07/23/16 06:19; Start 07/22/16 at 08:30; Stop 07/25/16 at 12 :34; Status DC Insulin Aspart (Novolog) 15 units TIDAC SQ Last administered on 07/25/16 08:32 ; Start 07/22/16 at 09:00; Stop 07/25/16 at 12:34; Status DC Insulin Detemir (Levemir) 45 units QHS SQ Last administered on 07/23/16 21:06; Start 07/22/16 at 21:00; Stop 07/25/16 at 12:34; Status DC Albuterol/ Ipratropium (Duoneb) 3 ml RTQID NEB Last administered on 07/25/16 11 :13; Start 07/22/16 at 12:00 Lisinopril (Prinivil) 2.5 mg DAILY PO Last administered on 07/22/16 10:04; Start 07/22/16 at 09:00 Ondansetron HCl (Zofran Odt) 4 mg PRN Q8HRS PRN PO NAUSEA/VOMITING; Start 07/22 at 08:30 Sodium Chloride (Saline Mist Nasal) 1 chad PRN Q1HR PRN NS NASAL CONGESTION; Start 07/22/16 at 08:30 Spironolactone (Aldactone) 25 mg DAILY PO ; Start 07/22/16 at 09:00; Stop at 09:00; Status DC Non-Formulary Medication 2 puff PRN Q4-6HRS IH ; Start 07/22/16 at 08:30; Status UNV Bumetanide (Bumex) 2 mg BID94 PO Last administered on 07/24/16 09:07; Start at 09:00 Budesonide (Pulmicort) 0.5 mg RTBID NEB Last administered on 07/25/16 08:07; Start 07/22/16 at 09:00 Non-Formulary Medication 1 puff DAILY IH ; Start 07/22/16 at 09:00; Status UNV Clozapine (Clozaril) 100 mg DAILY PO Last administered on 07/24/16 09:07; Start 07/22/16 at 09:00; Stop 07/25/16 at 12:34; Status DC Furosemide (Lasix) 40 mg 1X ONCE IVP Last administered on 07/22/16 10:03; Start 07/22/16 at 08:45; Stop 07/22/16 at 08:46; Status DC Lorazepam (Ativan) 2 mg 1X ONCE IV Last administered on 07/22/16 11:32; Start 07/22/16 at 12:00; Stop 07/22/16 at 12:01; Status DC Lorazepam (Ativan) 2 mg 1X ONCE IV ; Start 07/22/16 at 14:30; Stop 07/22/16 at 14:31; Status DC Diphenhydramine HCl (Benadryl) 25 mg PRN QHS PRN PO INSOMNIA Last administered on 07/24/16 00:46; Start 07/23/16 at 03:15 Tamsulosin HCl (Flomax) 0.4 mg QHS PO ; Start 07/24/16 at 21:00; Stop 07/25/16 at 09:47; Status DC Amoxicillin/ Clavulanate Potassium 1 tab 1 tab BID PO Last administered on 11:47; Start 07/24/16 at 10:00; Stop 07/25/16 at 07:10; Status DC Lactated Ringer's 1,000 ml @ 75 mls/hr 1X ONCE IV Last administered on 17:56; Start 07/24/16 at 17:45; Stop 07/25/16 at 07:04; Status DC Iron Sucrose 500 mg/Sodium Chloride 275 ml @ 78.571 mls/ hr 1X ONCE IV Last administered on 07/24/16 17:56; Start 07/24/16 at 18:00; Stop 07/24/16 at 21:29; Status DC Norepinephrine Bitartrate 8 mg/ Sodium Chloride 258 ml @ 0 mls/hr CONT PRN IV SEE I/O RECORD Last administered on 07/25/16 03:13; Start 07/24/16 at 21:00 Midazolam HCl 100 ml @ As Directed STK-MED ONCE IV ; Start 07/24/16 at 21:50; Stop 07/24/16 at 21:51; Status DC Dopamine HCl/ Dextrose 250 ml @ 18.371 mls/ hr CONT PRN IV SEE I/O RECORD Last administered on 07/25/16 06:23; Start 07/24/16 at 22:30 Midazolam HCl 100 ml @ 0 mls/hr CONT PRN IV SEE I/O RECORD Last administered on 07/25/16 06:03; Start 07/24/16 at 23:45 Sodium Chloride 1,000 ml @ 100 mls/hr Q10H IV Last administered on 07/25/16 06 :23; Start 07/25/16 at 06:30 Piperacillin Sod/ Tazobactam Sod 2.25 gm/Sodium Chloride 50 ml @ 100 mls/hr Q6HRS IV Last administered on 07/25/16 08:23; Start 07/25/16 at 07:30 Micafungin Sodium 100 mg/Dextrose 100 ml @ 100 mls/hr Q24H IV Last administered on 07/25/16 09:37; Start 07/25/16 at 08:00 Linezolid (Zyvox Premix) 300 ml @ 300 mls/hr Q12HR IV Last administered on 07/25 09:37; Start 07/25/16 at 09:00 Acetaminophen 650 mg 650 mg PRN Q6HRS PRN [place] MILD PAIN / TEMP; Start 07/25/16 at 07:15 Acyclovir Sodium/ Dextrose (Zovirax) 261 ml @ 261 mls/hr Q12HR IV Last administered on 07/25/16 09:36; Start 07/25/16 at 09:00 Epinephrine HCl (Adrenalin) 30 mg STK-MED ONCE .ROUTE ; Start 07/24/16 at 12:00; Stop 07/25/16 at 11:31; Status DC Calcium Chloride 1,000 mg STK-MED ONCE IV ; Start 07/24/16 at 12:00; Stop at 11:31; Status DC Epinephrine HCl 1 mg STK-MED ONCE .ROUTE ; Start 07/24/16 at 12:00; Stop 07/25/16 at 11:31; Status DC Sodium Bicarbonate 100 meq STK-MED ONCE .ROUTE ; Start 07/24/16 at 12:00; Stop at 11:31; Status DC Dopamine HCl/ Dextrose 400 mg STK-MED ONCE IV ; Start 07/24/16 at 12:00; Stop 07/25/16 at 11:31; Status DC Insulin Detemir (Levemir) 10 units QHS SQ ; Start 07/25/16 at 21:00; Status UNV Insulin Aspart (Novolog) 0-9 UNITS TIDWMEALS SQ ; Start 07/25/16 at 17:00; Status UNV Dextrose 12.5 gm PRN Q15MIN PRN IV SEE COMMENTS; Start 07/25/16 at 12:30; Status UNV Active Scripts Active Duoneb 0.5-3(2.5) Mg/3 Ml (Albuterol/Ipratropium) 3 Ml Ampul.neb 3 Ml NEB RTQID Amlodipine Besylate 10 Mg Tablet 10 Mg PO BID 30 Days Diltiazem 24Hr Cd (Diltiazem HCl) 180 Mg Cap.er.24h 180 Mg PO DAILY 30 Days Clopidogrel (Clopidogrel Bisulfate) 75 Mg Tablet 75 Mg PO DAILYWBKFT 30 Days Saline Mist (Sodium Chloride) 45 Ml [place] 1 [place] NS PRN Q1HR PRN 30 Days Carvedilol 12.5 Mg Tablet 12.5 Mg PO BIDWMEALS 30 Days Children's Aspirin (Aspirin) 81 Mg Tab.chew 81 Mg PO DAILYWBKFT 30 Days Novolog Flexpen (Insulin Aspart) 100 Unit/1 Ml Insuln.pen 15 Units SQ TIDAC Levemir Flextouch (Insulin Detemir) 100 Unit/1 Ml Insuln.pen 45 Units SQ QHS Cyclobenzaprine Hcl 10 Mg Tablet 10 Mg PO PRN TID PRN Hydrocodone-Apap 7.5-325 (Hydrocodone Bit/Acetaminophen) 1 Each Tablet 1-2 Tab PO PRN TID PRN Ventolin Hfa Inhaler (Albuterol Sulfate) 18 Gm Hfa.aer.ad 2 Puff IH PRN Q4-6HRS Albuterol Sulfate Neb Soln (Albuterol Sulfate) 2.5 Mg/3 Ml Vial.neb 1 Vial NEB PRN Q4HRS Alprazolam 0.5 Mg Tablet 0.5 Mg PO BID PRN Reported Lisinopril 2.5 Mg Tablet 2.5 Mg PO DAILY Carvedilol 6.25 Mg Tablet 6.25 Mg PO BIDWMEALS Ondansetron Odt (Ondansetron) 4 Mg Tab.rapdis 4 Mg PO Q8HRS PRN Breo Ellipta 100-25 Mcg Inh (Fluticasone/Vilanterol) 1 Each Aer.pow.ba 1 Puff IH DAILY Lipitor (Atorvastatin Calcium) 20 Mg Tablet 20 Mg PO HS Advair 250-50 Diskus (Fluticasone/Salmeterol) 1 Each Disk.w.dev 2 Puff INH BID Bumetanide 2 Mg Tablet 2 Mg PO BID Spironolactone 25 Mg Tablet 25 Mg PO DAILY Vitals/I & O Vital Sign - Last 24 Hours 07/24/16 07/24/16 07/24/16 07/24/16 13:00 15:37 16:47 20:45 Temp 97.5 97.5 Pulse 92 134 Resp 20 B/P 98/75 82/48 Pulse Ox 100 O2 Delivery Nasal Cannula Nasal Cannula Ventilator O2 Flow Rate 3.0 2.0 07/24/16 07/24/16 07/24/16 07/24/16 21:00 21:00 21:00 21:15 Pulse 134 134 Resp 20 20 B/P 69/41 95/52 Pulse Ox 95 96 97 O2 Delivery Mechanical Ventilator Ventilator Ventilator Ventilator 07/24/16 07/24/16 07/24/16 07/24/16 21:30 21:38 21:45 22:00 Pulse 134 134 134 Resp 20 20 20 B/P 95/52 73/45 94/54 Pulse Ox 97 91 87 87 O2 Delivery Ventilator Ventilator Ventilator Ventilator 07/24/16 07/24/16 07/24/16 07/25/16 22:30 23:00 23:29 00:00 Pulse 134 134 Resp 20 20 B/P 101/45 108/62 Pulse Ox 87 93 O2 Delivery Ventilator Ventilator Ventilator Mechanical Ventilator 07/25/16 07/25/16 07/25/16 07/25/16 00:00 01:00 01:17 02:00 Temp 98.7 98.7 Pulse 119 119 128 Resp 20 20 20 B/P 102/52 92/50 84/56 Pulse Ox 94 94 94 94 O2 Delivery Ventilator Ventilator Ventilator Ventilator 07/25/16 07/25/16 07/25/16 07/25/16 03:00 03:10 04:00 04:00 Temp 102.2 102.2 Pulse 130 130 Resp 22 22 B/P 92/52 90/50 Pulse Ox 90 91 90 O2 Delivery Ventilator Ventilator Mechanical Ventilator Ventilator 07/25/16 07/25/16 07/25/16 07/25/16 05:00 05:07 06:00 08:08 Temp 102.7 102.7 Pulse 128 123 Resp 22 22 B/P 104/55 89/46 Pulse Ox 90 87 90 98 O2 Delivery Ventilator Ventilator Ventilator Ventilator 07/25/16 11:28 Pulse Ox 93 O2 Delivery Ventilator Intake and Output 07/24/16 07/24/16 07/25/16 15:00 23:00 07:00 Intake Total 250 ml 2612 ml Output Total 1000 ml 700 ml Balance -750 ml 1912 ml Torsten SINGLETARY MD Jul 25, 2016 13:01
--- NOTE | 2016-07-25 13:19 | PDOC ---
PROGRESS NOTES Assessment Assessment s/p cardiac and pulmonary arrest, asystole and PEA 17 minutes on 07/24/16. Anoxia/hypoxia encephalopathy. Metabolic encephalopathy. Respiratory failure. Acute renal failure. Sepsis possible. Fever. Recent left pleural effusion. Sarcoidosis of lung per Hx. CHF, acute on chronic. S/ CABG AFib COPD DM Hyperglycemia. Anemia Obesity. Cannabinoids positive in UDS. Benzo and Opiate positive in UDS. RECOMMENDATIONS/PLAN: Continue life support in ICU. Treat medical diseases. Family wants continue care at the present time. Discussed in detail about poor prognosis with her mother, daughter, sisters and other family members in ICU on 07/25/16. HCT: Negative. EEG on 07/24: Diffuse encephalopathy. No seizure activity. HISTORY OF THE PRESENT ILLNESS: 56-y-old AA female patient with above medical diseases was familiar to ER physicians. She came to the ER of [facility] this time with multiple complaints medically and psychiatrically. She stated she has been having twitching movements in her arms lately and has increased symptoms of her anxiety and panic attacks. etc. No acute focalized neurological motor or sensory deficits. The patient had cardiac arrest after 17:00 pm on 07/24/16 as asystole for 13 minutes then PEA for 4 minutes with pulmonary arrest. Resuscitation provided and continued for > 45 minutes to eventually got junction rhythm afterwords. Patient was intubated and transferred to ICU on 07/24/16. She remained on vent unresponsive. PAST MEDICAL HISTORY: Please see above. PAST SURGERY HISTORY: Tonsillectomy Cholecystectomy Hysterectomy ALLERGY: Metformin Adhesives MEDICATIONS: Refer to [facility] FAMILY HISTORY: Non contributory. SOCIAL HISTORY: Unknown her smoking, drinking, and illicit drug use status. Patient did not provide such history on exam. REVIEW OF SYSTEMS: Constitutional: No malnutrition, weight loss, cachexia. Head: No traumatic brain or head injury. Skin: No edema, or rash. Ear: No infection, tinnitus. Eyes: No vision loss or color blindness. Nose: No bleeding or purulent discharges. Hearing: No hearing decrease. Neck: No injury. Breast: No history of cancer, masses,or discharges. Cardiac: AFib Pulmonary: COPD. GI: No GI ulcer, GI bleeding. Urinary/genital: UTI. Endocrinologic: Diabetes Mellitus, obesity. Skeletomuscular: No muscular atrophy, deformity. Neurological: see HP. Psychiatric: Denies drug use/abuse. Otherwise, not [id number] review of systems. PHYSICAL EXAMINATION: General appearance is unresponsive. HEENT: Normocephalic and nontraumatic. Eyes, nose, ears, and throat are unremarkable. Neck is supple. No lymphadenopathy. No crepitus. Cardiovascular: S1, S2, seemed irregular rate and rhythm. Pulmonary: Breathing sounds mildly decreased to auscultation bilaterally. Abdomen: Bowel sounds are positive. Extremities: No rash, lesions, or edema. No restriction of range of motion NEUROLOGICAL EXAMINATION: On vent. Sedated. Unresponsiveness. Not oriented to time, place and person. PERRL. EOMI not elicited. CN: no acute focal findings. Muscle tone: decreased. Muscle strength: no movments to stimuli. DTR: 0-1 Plantar reflex: No response bilaterally Gait: Unable to walk. Sensory exam: no response to stimuli. Not able to access cerebellar signs. Not able to perform F-T-N test. Objective Objective Vital Signs Date Time Temp Pulse Resp B/P Pulse Ox O2 Delivery O2 Flow Rate FiO2 07/25/16 11:28 93 Ventilator 07/25/16 06:00 102.7 123 22 89/46 102.7 07/24/16 15:37 2.0 Intake and Output 07/25/16 07:00 Intake Total 2862 ml Output Total 1700 ml Balance 1162 ml Intake Oral 250 ml IV Total 2612 ml Output Urine Total 1400 ml Gastric Drainage Total 300 ml # Bowel Movements 1 Vitals Signs Vitals VS - Last 72 Hours, by Label Date Time Temp Pulse Resp B/P Pulse Ox O2 Delivery O2 Flow Rate FiO2 07/25/16 11:28 93 Ventilator 07/25/16 08:08 98 Ventilator 07/25/16 06:00 102.7 123 22 89/46 90 Ventilator 102.7 07/25/16 05:07 87 Ventilator 07/25/16 05:00 128 22 104/55 90 Ventilator 07/25/16 04:00 102.2 130 22 90/50 90 Ventilator 102.2 07/25/16 04:00 Mechanical Ventilator 07/25/16 03:10 91 Ventilator 07/25/16 03:00 130 22 92/52 90 Ventilator 07/25/16 02:00 128 20 84/56 94 Ventilator 07/25/16 01:17 94 Ventilator 07/25/16 01:00 119 20 92/50 94 Ventilator 07/25/16 00:00 98.7 119 20 102/52 94 Ventilator 98.7 07/25/16 00:00 Mechanical Ventilator 07/24/16 23:29 Ventilator 07/24/16 23:00 134 20 108/62 93 Ventilator 07/24/16 22:30 134 20 101/45 87 Ventilator 07/24/16 22:00 134 20 94/54 87 Ventilator 07/24/16 21:45 134 20 73/45 87 Ventilator 07/24/16 21:38 91 Ventilator 07/24/16 21:30 134 20 95/52 97 Ventilator 07/24/16 21:15 134 20 95/52 97 Ventilator 07/24/16 21:00 96 Ventilator 07/24/16 21:00 134 20 69/41 95 Ventilator 07/24/16 21:00 Mechanical Ventilator 07/24/16 20:45 97.5 134 20 82/48 100 Ventilator 97.5 07/24/16 16:47 92 98/75 07/24/16 15:37 Nasal Cannula 2.0 07/24/16 13:00 Nasal Cannula 3.0 07/24/16 11:31 95 Nasal Cannula 2.0 07/24/16 11:00 97.5 92 22 98/75 96 Nasal Cannula 2.0 97.5 07/24/16 09:00 74 87/57 07/24/16 09:00 74 87/57 07/24/16 09:00 74 87/57 07/24/16 08:00 Nasal Cannula 3.0 07/24/16 08:00 74 87/57 07/24/16 07:34 Nasal Cannula 2.0 07/24/16 07:00 74 24 87/57 95 Nasal Cannula 2.0 Laboratory Laboratory Laboratory Tests Test 07/24/16 16:44 07/24/16 21:14 07/24/16 21:20 07/25/16 04:45 Glucose (Fingerstick) 257mg/dL (70-99) O2 Saturation 96% (92-99) Arterial Blood pH 7.44 (7.35-7.45) Arterial Blood pCO2 at Patient Temp 44mmHg (35-46) Arterial Blood pO2 at Patient Temp 83mmHg (75-108) Arterial Blood HCO3 30mmol/L (21-28) Arterial Blood Base Excess 5mmol/L (-3-3) FiO2 100 White Blood Count 13.4x10^3/uL (4.0-11.0) 16.6x10^3/uL (4.0-11.0) Red Blood Count 4.10x10^6/uL (3.50-5.40) 4.24x10^6/uL (3.50-5.40) Hemoglobin 9.6g/dL (12.0-15.5) 10.0g/dL (12.0-15.5) Hematocrit 31.2% (36.0-47.0) 32.9% (36.0-47.0) Mean Corpuscular Volume 76fL (79-100) 78fL (79-100) Mean Corpuscular Hemoglobin 23pg (25-35) 24pg (25-35) Mean Corpuscular Hemoglobin Concent 31g/dL (31-37) 30g/dL (31-37) Red Cell Distribution Width 20.7% (11.5-14.5) 20.9% (11.5-14.5) Platelet Count 397x10^3/uL (140-400) 496x10^3/uL (140-400) Prothrombin Time 17.2SEC (11.7-14.0) Prothromb Time International Ratio 1.5 (0.8-1.1) Sodium Level 133mmol/L (136-145) 136mmol/L (136-145) Potassium Level 4.5mmol/L (3.5-5.1) 4.9mmol/L (3.5-5.1) Chloride Level 91mmol/L (98-107) 94mmol/L (98-107) Carbon Dioxide Level 32mmol/L (21-32) 28mmol/L (21-32) Anion Gap 10 (6-14) 14 (6-14) Blood Urea Nitrogen 86mg/dL (7-20) 89mg/dL (7-20) Creatinine 2.3mg/dL (0.6-1.0) 2.5mg/dL (0.6-1.0) Estimated GFR (Cockcroft-Gault) 26.7 24.3 BUN/Creatinine Ratio 37 (6-20) Glucose Level 217mg/dL (70-99) 251mg/dL (70-99) Calcium Level 9.4mg/dL (8.5-10.1) 9.2mg/dL (8.5-10.1) Magnesium Level 2.5mg/dL (1.8-2.4) Total Bilirubin 2.7mg/dL (0.2-1.0) Aspartate Amino Transf (AST/SGOT) 60U/L (15-37) Alanine Aminotransferase (ALT/SGPT) 32U/L (14-59) Alkaline Phosphatase 200U/L (46-116) Total Protein 7.4g/dL (6.4-8.2) Albumin 2.6g/dL (3.4-5.0) Albumin/Globulin Ratio 0.5 (1.0-1.7) Neutrophils (%) (Auto) 85% (31-73) Lymphocytes (%) (Auto) 6% (24-48) Monocytes (%) (Auto) 10% (0-9) Eosinophils (%) (Auto) 0% (0-3) Basophils (%) (Auto) 0% (0-3) Neutrophils # (Auto) 14.0x10^3uL (1.8-7.7) Lymphocytes # (Auto) 0.9x10^3/uL (1.0-4.8) Monocytes # (Auto) 1.6x10^3/uL (0.0-1.1) Eosinophils # (Auto) 0.0x10^3/uL (0.0-0.7) Basophils # (Auto) 0.0x10^3/uL (0.0-0.2) Segmented Neutrophils % 65% (35-66) Band Neutrophils % 10% (0-9) Lymphocytes % 17% (24-48) Monocytes % 8% (0-10) Nucleated Red Blood Cells 2 Platelet Estimate Increased (ADEQUATE) Polychromasia Present Hypochromasia Present Anisocytosis Present Microcytosis Present Macrocytosis Present Target Cells Present Test 07/25/16 08:00 07/25/16 08:23 07/25/16 08:31 07/25/16 09:00 O2 Saturation 89% (92-99) 89% (92-99) Arterial Blood pH 7.45 (7.35-7.45) 7.44 (7.35-7.45) Arterial Blood pH (Temp corrected) 7.42 Arterial Blood pCO2 at Patient Temp 36mmHg (35-46) 40mmHg (35-46) Arterial Blood pCO2 (Temp correct) 40mmHg Arterial Blood pO2 at Patient Temp 59mmHg (75-108) 60mmHg (75-108) Arterial Blood pO2 (Temp corrected) 69mmHg Arterial Blood HCO3 24mmol/L (21-28) 27mmol/L (21-28) Arterial Blood Base Excess 1mmol/L (-3-3) 3mmol/L (-3-3) FiO2 100 100 Glucose (Fingerstick) 248mg/dL (70-99) Lactic Acid Level 2.5mmol/L (0.4-2.0) Test 07/25/16 10:15 07/25/16 10:40 Influenza Type A Antigen Negative (NEGATIVE) Influenza Type B Antigen Negative (NEGATIVE) Urine Collection Type Unknown Urine Color Yellow Urine Clarity Clear Urine pH 6.0 Urine Specific [place] 1.010 Urine Protein 30mg/dL (NEG-TRACE) Urine Glucose (UA) Negativemg/dL (NEG) Urine Ketones (Stick) Tracemg/dL (NEG) Urine Blood Large (NEG) Urine Nitrite Negative (NEG) Urine Bilirubin Negative (NEG) Urine Urobilinogen Dipstick 1.0mg/dL (0.2 mg/dL) Urine Leukocyte Esterase Small (NEG) Urine RBC Tntc/HPF (0-2) Urine WBC 0/HPF (0-4) Urine Bacteria 0/HPF (0-FEW) Urine Hyaline Casts Few/HPF Urine Granular Casts Occasional/HPF Urine Waxy Casts Few/HPF Urine Mucus Slight/LPF Microbiology 07/21/16 Blood Culture - Preliminary, Resulted NO GROWTH AFTER 3 DAYS Medication Medications Current Medications Acetaminophen 650 mg 650 mg PRN Q6HRS PRN CT MILD PAIN / TEMP; Start 07/25/16 at 07:15 Acyclovir Sodium/ Dextrose (Zovirax) 261 ml @ 261 mls/hr Q12HR IV Last administered on 07/25/16t 09:36; Start 07/25/16 at 09:00 Bumetanide (Bumex) 2 mg DAILY IV ; Start 07/25/16 at 13:30 Dextrose 12.5 gm PRN Q15MIN PRN IV SEE COMMENTS; Start 07/25/16 at 12:30 Dopamine HCl/ Dextrose 250 ml @ 18.371 mls/ hr CONT PRN IV SEE I/O RECORD Last administered on 07/25/16 06:23; Start 07/24/16 at 22:30 Insulin Aspart (Novolog) 0-9 UNITS TIDWMEALS SQ ; Start 07/25/16 at 17:00 Insulin Detemir (Levemir) 10 units QHS SQ ; Start 07/25/16 at 21:00 Iron Sucrose 500 mg/Sodium Chloride 275 ml @ 78.571 mls/ hr 1X ONCE IV Last administered on 07/24/16 17:56; Start 07/24/16 at 18:00; Stop 07/24/16 at 21:29; Status DC Lactated Ringer's 1,000 ml @ 75 mls/hr 1X ONCE IV Last administered on 17:56; Start 07/24/16 at 17:45; Stop 07/25/16 at 07:04; Status DC Linezolid (Zyvox Premix) 300 ml @ 300 mls/hr Q12HR IV Last administered on 07/25 09:37; Start 07/25/16 at 09:00 Micafungin Sodium 100 mg/Dextrose 100 ml @ 100 mls/hr Q24H IV Last administered on 07/25/16 09:37; Start 07/25/16 at 08:00 Midazolam HCl 100 ml @ As Directed STK-MED ONCE IV ; Start 07/24/16 at 21:50; Stop 07/24/16 at 21:51; Status DC Midazolam HCl 100 ml @ 0 mls/hr CONT PRN IV SEE I/O RECORD Last administered on 07/25/16 06:03; Start 07/24/16 at 23:45 Norepinephrine Bitartrate 8 mg/ Sodium Chloride 258 ml @ 0 mls/hr CONT PRN IV SEE I/O RECORD Last administered on 07/25/16 03:13; Start 07/24/16 at 21:00 Piperacillin Sod/ Tazobactam Sod 2.25 gm/Sodium Chloride 50 ml @ 100 mls/hr Q6HRS IV Last administered on 07/25/16 08:23; Start 07/25/16 at 07:30 Sodium Chloride 1,000 ml @ 100 mls/hr Q10H IV Last administered on 07/25/16t 06 :23; Start 07/25/16 at 06:30 Tamsulosin HCl 0.4 mg 0.4 mg QHS PO ; Start 07/24/16 at 21:00; Stop 07/25/16 at 09 :47; Status DC Comment Review of Relevant I have reviewed the following items mary (where applicable) has been applied. FELECIA HILL MD Jul 25, 2016 13:19
[2016-07-25] MEDS: CLOPIDOGREL BISULFATE 75 MG TABLET PO SCH (13:26)
[2016-07-25] MEDS ORDERED: BUMETANIDE 1 MG/4 ML VIAL. IV SCH (13:30)
[2016-07-25] MEDS: ACETAMINOPHEN 650 MG SUPP.RECT. PR PRN ×2 (14:19→20:59)
--- NOTE | 2016-07-25 14:19 | PDOC ---
PULMONARY PROGRESS NOTES Vitals Vital Signs Date Time Temp Pulse Resp B/P Pulse Ox O2 Delivery O2 Flow Rate FiO2 07/25/16 11:28 93 Ventilator 07/25/16 06:00 102.7 123 22 89/46 102.7 07/24/16 15:37 2.0 HEENT: Other Labs Laboratory Tests Test 07/23/16 16:18 07/23/16 20:53 07/24/16 06:22 07/24/16 09:10 Glucose (Fingerstick) 146mg/dL (70-99) 167mg/dL (70-99) 158mg/dL (70-99) White Blood Count 12.1x10^3/uL (4.0-11.0) Red Blood Count 3.76x10^6/uL (3.50-5.40) Hemoglobin 8.9g/dL (12.0-15.5) Hematocrit 28.6% (36.0-47.0) Mean Corpuscular Volume 76fL (79-100) Mean Corpuscular Hemoglobin 24pg (25-35) Mean Corpuscular Hemoglobin Concent 31g/dL (31-37) Red Cell Distribution Width 20.1% (11.5-14.5) Platelet Count 349x10^3/uL (140-400) Neutrophils (%) (Auto) 80% (31-73) Lymphocytes (%) (Auto) 9% (24-48) Monocytes (%) (Auto) 11% (0-9) Eosinophils (%) (Auto) 0% (0-3) Basophils (%) (Auto) 0% (0-3) Neutrophils # (Auto) 9.7x10^3uL (1.8-7.7) Lymphocytes # (Auto) 1.0x10^3/uL (1.0-4.8) Monocytes # (Auto) 1.3x10^3/uL (0.0-1.1) Eosinophils # (Auto) 0.0x10^3/uL (0.0-0.7) Basophils # (Auto) 0.0x10^3/uL (0.0-0.2) Sodium Level 128mmol/L (136-145) Potassium Level 5.0mmol/L (3.5-5.1) Chloride Level 90mmol/L (98-107) Carbon Dioxide Level 26mmol/L (21-32) Anion Gap 12 (6-14) Blood Urea Nitrogen 80mg/dL (7-20) Creatinine 2.1mg/dL (0.6-1.0) Estimated GFR (Cockcroft-Gault) 29.7 BUN/Creatinine Ratio 38 (6-20) Glucose Level 145mg/dL (70-99) Calcium Level 9.4mg/dL (8.5-10.1) Total Bilirubin 2.5mg/dL (0.2-1.0) Aspartate Amino Transf (AST/SGOT) 47U/L (15-37) Alanine Aminotransferase (ALT/SGPT) 17U/L (14-59) Alkaline Phosphatase 177U/L (46-116) Total Protein 7.6g/dL (6.4-8.2) Albumin 2.8g/dL (3.4-5.0) Albumin/Globulin Ratio 0.6 (1.0-1.7) Test 07/24/16 09:55 07/24/16 11:50 07/24/16 16:44 07/24/16 21:14 Iron Level 19ug/dL (50-170) Total Iron Binding Capacity 449ug/dL (250-450) Iron Saturation 4% (15-34) Ferritin 67ng/mL (8-252) Glucose (Fingerstick) 206mg/dL (70-99) 257mg/dL (70-99) O2 Saturation 96% (92-99) Arterial Blood pH 7.44 (7.35-7.45) Arterial Blood pCO2 at Patient Temp 44mmHg (35-46) Arterial Blood pO2 at Patient Temp 83mmHg (75-108) Arterial Blood HCO3 30mmol/L (21-28) Arterial Blood Base Excess 5mmol/L (-3-3) FiO2 100 Test 07/24/16 21:20 07/25/16 04:45 07/25/16 08:00 07/25/16 08:23 White Blood Count 13.4x10^3/uL (4.0-11.0) 16.6x10^3/uL (4.0-11.0) Red Blood Count 4.10x10^6/uL (3.50-5.40) 4.24x10^6/uL (3.50-5.40) Hemoglobin 9.6g/dL (12.0-15.5) 10.0g/dL (12.0-15.5) Hematocrit 31.2% (36.0-47.0) 32.9% (36.0-47.0) Mean Corpuscular Volume 76fL (79-100) 78fL (79-100) Mean Corpuscular Hemoglobin 23pg (25-35) 24pg (25-35) Mean Corpuscular Hemoglobin Concent 31g/dL (31-37) 30g/dL (31-37) Red Cell Distribution Width 20.7% (11.5-14.5) 20.9% (11.5-14.5) Platelet Count 397x10^3/uL (140-400) 496x10^3/uL (140-400) Prothrombin Time 17.2SEC (11.7-14.0) Prothromb Time International Ratio 1.5 (0.8-1.1) Sodium Level 133mmol/L (136-145) 136mmol/L (136-145) Potassium Level 4.5mmol/L (3.5-5.1) 4.9mmol/L (3.5-5.1) Chloride Level 91mmol/L (98-107) 94mmol/L (98-107) Carbon Dioxide Level 32mmol/L (21-32) 28mmol/L (21-32) Anion Gap 10 (6-14) 14 (6-14) Blood Urea Nitrogen 86mg/dL (7-20) 89mg/dL (7-20) Creatinine 2.3mg/dL (0.6-1.0) 2.5mg/dL (0.6-1.0) Estimated GFR (Cockcroft-Gault) 26.7 24.3 BUN/Creatinine Ratio 37 (6-20) Glucose Level 217mg/dL (70-99) 251mg/dL (70-99) Calcium Level 9.4mg/dL (8.5-10.1) 9.2mg/dL (8.5-10.1) Magnesium Level 2.5mg/dL (1.8-2.4) Total Bilirubin 2.7mg/dL (0.2-1.0) Aspartate Amino Transf (AST/SGOT) 60U/L (15-37) Alanine Aminotransferase (ALT/SGPT) 32U/L (14-59) Alkaline Phosphatase 200U/L (46-116) Total Protein 7.4g/dL (6.4-8.2) Albumin 2.6g/dL (3.4-5.0) Albumin/Globulin Ratio 0.5 (1.0-1.7) Neutrophils (%) (Auto) 85% (31-73) Lymphocytes (%) (Auto) 6% (24-48) Monocytes (%) (Auto) 10% (0-9) Eosinophils (%) (Auto) 0% (0-3) Basophils (%) (Auto) 0% (0-3) Neutrophils # (Auto) 14.0x10^3uL (1.8-7.7) Lymphocytes # (Auto) 0.9x10^3/uL (1.0-4.8) Monocytes # (Auto) 1.6x10^3/uL (0.0-1.1) Eosinophils # (Auto) 0.0x10^3/uL (0.0-0.7) Basophils # (Auto) 0.0x10^3/uL (0.0-0.2) Segmented Neutrophils % 65% (35-66) Band Neutrophils % 10% (0-9) Lymphocytes % 17% (24-48) Monocytes % 8% (0-10) Nucleated Red Blood Cells 2 Platelet Estimate Increased (ADEQUATE) Polychromasia Present Hypochromasia Present Anisocytosis Present Microcytosis Present Macrocytosis Present Target Cells Present O2 Saturation 89% (92-99) 89% (92-99) Arterial Blood pH 7.45 (7.35-7.45) 7.44 (7.35-7.45) Arterial Blood pH (Temp corrected) 7.42 Arterial Blood pCO2 at Patient Temp 36mmHg (35-46) 40mmHg (35-46) Arterial Blood pCO2 (Temp correct) 40mmHg Arterial Blood pO2 at Patient Temp 59mmHg (75-108) 60mmHg (75-108) Arterial Blood pO2 (Temp corrected) 69mmHg Arterial Blood HCO3 24mmol/L (21-28) 27mmol/L (21-28) Arterial Blood Base Excess 1mmol/L (-3-3) 3mmol/L (-3-3) FiO2 100 100 Test 07/25/16 08:31 07/25/16 09:00 07/25/16 10:15 07/25/16 10:40 Glucose (Fingerstick) 248mg/dL (70-99) Lactic Acid Level 2.5mmol/L (0.4-2.0) Influenza Type A Antigen Negative (NEGATIVE) Influenza Type B Antigen Negative (NEGATIVE) Urine Collection Type Unknown Urine Color Yellow Urine Clarity Clear Urine pH 6.0 Urine Specific [place] 1.010 Urine Protein 30mg/dL (NEG-TRACE) Urine Glucose (UA) Negativemg/dL (NEG) Urine Ketones (Stick) Tracemg/dL (NEG) Urine Blood Large (NEG) Urine Nitrite Negative (NEG) Urine Bilirubin Negative (NEG) Urine Urobilinogen Dipstick 1.0mg/dL (0.2 mg/dL) Urine Leukocyte Esterase Small (NEG) Urine RBC Tntc/HPF (0-2) Urine WBC 0/HPF (0-4) Urine Bacteria 0/HPF (0-FEW) Urine Hyaline Casts Few/HPF Urine Granular Casts Occasional/HPF Urine Waxy Casts Few/HPF Urine Mucus Slight/LPF Test 07/25/16 13:37 Glucose (Fingerstick) 290mg/dL (70-99) Laboratory Tests Test 07/24/16 16:44 07/24/16 21:14 07/24/16 21:20 07/25/16 04:45 Glucose (Fingerstick) 257mg/dL (70-99) O2 Saturation 96% (92-99) Arterial Blood pH 7.44 (7.35-7.45) Arterial Blood pCO2 at Patient Temp 44mmHg (35-46) Arterial Blood pO2 at Patient Temp 83mmHg (75-108) Arterial Blood HCO3 30mmol/L (21-28) Arterial Blood Base Excess 5mmol/L (-3-3) FiO2 100 White Blood Count 13.4x10^3/uL (4.0-11.0) 16.6x10^3/uL (4.0-11.0) Red Blood Count 4.10x10^6/uL (3.50-5.40) 4.24x10^6/uL (3.50-5.40) Hemoglobin 9.6g/dL (12.0-15.5) 10.0g/dL (12.0-15.5) Hematocrit 31.2% (36.0-47.0) 32.9% (36.0-47.0) Mean Corpuscular Volume 76fL (79-100) 78fL (79-100) Mean Corpuscular Hemoglobin 23pg (25-35) 24pg (25-35) Mean Corpuscular Hemoglobin Concent 31g/dL (31-37) 30g/dL (31-37) Red Cell Distribution Width 20.7% (11.5-14.5) 20.9% (11.5-14.5) Platelet Count 397x10^3/uL (140-400) 496x10^3/uL (140-400) Prothrombin Time 17.2SEC (11.7-14.0) Prothromb Time International Ratio 1.5 (0.8-1.1) Sodium Level 133mmol/L (136-145) 136mmol/L (136-145) Potassium Level 4.5mmol/L (3.5-5.1) 4.9mmol/L (3.5-5.1) Chloride Level 91mmol/L (98-107) 94mmol/L (98-107) Carbon Dioxide Level 32mmol/L (21-32) 28mmol/L (21-32) Anion Gap 10 (6-14) 14 (6-14) Blood Urea Nitrogen 86mg/dL (7-20) 89mg/dL (7-20) Creatinine 2.3mg/dL (0.6-1.0) 2.5mg/dL (0.6-1.0) Estimated GFR (Cockcroft-Gault) 26.7 24.3 BUN/Creatinine Ratio 37 (6-20) Glucose Level 217mg/dL (70-99) 251mg/dL (70-99) Calcium Level 9.4mg/dL (8.5-10.1) 9.2mg/dL (8.5-10.1) Magnesium Level 2.5mg/dL (1.8-2.4) Total Bilirubin 2.7mg/dL (0.2-1.0) Aspartate Amino Transf (AST/SGOT) 60U/L (15-37) Alanine Aminotransferase (ALT/SGPT) 32U/L (14-59) Alkaline Phosphatase 200U/L (46-116) Total Protein 7.4g/dL (6.4-8.2) Albumin 2.6g/dL (3.4-5.0) Albumin/Globulin Ratio 0.5 (1.0-1.7) Neutrophils (%) (Auto) 85% (31-73) Lymphocytes (%) (Auto) 6% (24-48) Monocytes (%) (Auto) 10% (0-9) Eosinophils (%) (Auto) 0% (0-3) Basophils (%) (Auto) 0% (0-3) Neutrophils # (Auto) 14.0x10^3uL (1.8-7.7) Lymphocytes # (Auto) 0.9x10^3/uL (1.0-4.8) Monocytes # (Auto) 1.6x10^3/uL (0.0-1.1) Eosinophils # (Auto) 0.0x10^3/uL (0.0-0.7) Basophils # (Auto) 0.0x10^3/uL (0.0-0.2) Segmented Neutrophils % 65% (35-66) Band Neutrophils % 10% (0-9) Lymphocytes % 17% (24-48) Monocytes % 8% (0-10) Nucleated Red Blood Cells 2 Platelet Estimate Increased (ADEQUATE) Polychromasia Present Hypochromasia Present Anisocytosis Present Microcytosis Present Macrocytosis Present Target Cells Present Test 07/25/16 08:00 07/25/16 08:23 07/25/16 08:31 07/25/16 09:00 O2 Saturation 89% (92-99) 89% (92-99) Arterial Blood pH 7.45 (7.35-7.45) 7.44 (7.35-7.45) Arterial Blood pH (Temp corrected) 7.42 Arterial Blood pCO2 at Patient Temp 36mmHg (35-46) 40mmHg (35-46) Arterial Blood pCO2 (Temp correct) 40mmHg Arterial Blood pO2 at Patient Temp 59mmHg (75-108) 60mmHg (75-108) Arterial Blood pO2 (Temp corrected) 69mmHg Arterial Blood HCO3 24mmol/L (21-28) 27mmol/L (21-28) Arterial Blood Base Excess 1mmol/L (-3-3) 3mmol/L (-3-3) FiO2 100 100 Glucose (Fingerstick) 248mg/dL (70-99) Lactic Acid Level 2.5mmol/L (0.4-2.0) Test 07/25/16 10:15 07/25/16 10:40 07/25/16 13:37 Influenza Type A Antigen Negative (NEGATIVE) Influenza Type B Antigen Negative (NEGATIVE) Urine Collection Type Unknown Urine Color Yellow Urine Clarity Clear Urine pH 6.0 Urine Specific [place] 1.010 Urine Protein 30mg/dL (NEG-TRACE) Urine Glucose (UA) Negativemg/dL (NEG) Urine Ketones (Stick) Tracemg/dL (NEG) Urine Blood Large (NEG) Urine Nitrite Negative (NEG) Urine Bilirubin Negative (NEG) Urine Urobilinogen Dipstick 1.0mg/dL (0.2 mg/dL) Urine Leukocyte Esterase Small (NEG) Urine RBC Tntc/HPF (0-2) Urine WBC 0/HPF (0-4) Urine Bacteria 0/HPF (0-FEW) Urine Hyaline Casts Few/HPF Urine Granular Casts Occasional/HPF Urine Waxy Casts Few/HPF Urine Mucus Slight/LPF Glucose (Fingerstick) 290mg/dL (70-99) Medications Active Scripts Medications Dose Route/Sig Days Date Category Lisinopril 2.5 Mg Tablet 2.5 Mg PO DAILY 07/22/16 Reported Carvedilol 6.25 Mg Tablet 6.25 Mg PO BIDWMEALS 07/22/16 Reported Ondansetron Odt (Ondansetron) 4 Mg Tab.rapdis 4 Mg PO Q8HRS PRN 07/22/16 Reported Breo Ellipta 100-25 Mcg Inh (Fluticasone/Vilanterol) 1 Each Aer.pow.ba 1 Puff IH DAILY 07/22/16 Reported Duoneb 0.5-3(2.5) Mg/3 Ml (Albuterol/Ipratropium) 3 Ml Ampul.neb 3 Ml NEB RTQID 06/07/16 Rx Amlodipine Besylate 10 Mg Tablet 10 Mg PO BID 30 06/05/16 Rx Diltiazem 24Hr Cd (Diltiazem HCl) 180 Mg Cap.er.24h 180 Mg PO DAILY 30 06/05/16 Rx Clopidogrel (Clopidogrel Bisulfate) 75 Mg Tablet 75 Mg PO DAILYWBKFT 30 06/05/16 Rx Saline Mist (Sodium Chloride) 45 Ml Spencer 1 Chad NS PRN Q1HR PRN 30 06/05/16 Rx Carvedilol 12.5 Mg Tablet 12.5 Mg PO BIDWMEALS 30 04/22/16 Rx Children's Aspirin (Aspirin) 81 Mg Tab.chew 81 Mg PO DAILYWBKFT 30 04/22/16 Rx Lipitor (Atorvastatin Calcium) 20 Mg Tablet 20 Mg PO HS 03/23/16 Reported Advair 250-50 Diskus (Fluticasone/Salmeterol) 1 Each Disk.w.dev 2 Puff INH BID 03/23/16 Reported Bumetanide 2 Mg Tablet 2 Mg PO BID 03/23/16 Reported Spironolactone 25 Mg Tablet 25 Mg PO DAILY 03/23/16 Reported Novolog Flexpen (Insulin Aspart) 100 Unit/1 Ml Insuln.pen 15 Units SQ TIDAC 11/15/15 Rx Levemir Flextouch (Insulin Detemir) 100 Unit/1 Ml Insuln.pen 45 Units SQ QHS 11/15/15 Rx Cyclobenzaprine Hcl 10 Mg Tablet 10 Mg PO PRN TID PRN 11/15/15 Rx Hydrocodone-Apap 7.5-325 (Hydrocodone Bit/Acetaminophen) 1 Each Tablet 1-2 Tab PO PRN TID PRN 11/15/15 Rx Ventolin Hfa Inhaler (Albuterol Sulfate) 18 Gm Hfa.aer.ad 2 Puff IH PRN Q4-6HRS 09/12/15 Rx Albuterol Sulfate Neb Soln (Albuterol Sulfate) 2.5 Mg/3 Ml Vial.neb 1 Vial NEB PRN Q4HRS 01/13/15 Rx Alprazolam 0.5 Mg Tablet 0.5 Mg PO BID PRN 05/25/14 Rx Impression . FULL NOTE DICTATED SPOKE WITH MULTIPLE FAMILY MEMBERS A/C RESP FAILURE S/P CODE BLUE SEPTIC SHOCK THANKS AGREE WITH CURRENT RX NICK ESPOSITO MD Jul 25, 2016 14:19
[2016-07-25] MEDS ORDERED: INSULIN ASPART 300 UNITS/3 ML INSULN.PEN SQ SCH (17:00)
[2016-07-25] MEDS: ALBUTEROL SULFATE 2.5 MG/3 ML NEBU. NEB PRN (17:43)
[2016-07-25] MEDS ORDERED: VASOPRESSIN 40 UNIT in IV DEXTROSE 5% 100 ML IV PRN (18:00)
[2016-07-25 18:02] LABS: HCO3 ABG 27 mmol/L (21-28); PCO2 ABG 34 mmHg (35-46); PH ABG 7.52 (7.35-7.45); PO2 ABG 55 mmHg (75-108); SAT O2 ABG 89 % (92-99)
[2016-07-25 18:07] LABS: FIO2 ABG 100
[2016-07-25] MEDS ORDERED: HYDROCORTISONE SOD SUCC/PF 250 MG/2 ML VIAL. IV ONE (18:15)
[2016-07-25] MEDS: ATORVASTATIN CALCIUM 20 MG TABLET PO SCH (20:59)
[2016-07-25] MEDS ORDERED: INSULIN DETEMIR 300 UNITS/3 ML INSULN.PEN. SQ SCH (21:00)
[2016-07-25] MEDS ORDERED: EPINEPHRINE 1 MG/10 ML DISP.SYRIN. ONE ×3 (22:00→23:00)
--- NOTE | 2016-07-25 22:19 | PHYS DOC ---
Past Medical History Past Medical History: Asthma, CHF, COPD, Diabetes-Type II, Hypertension, Lung Disease, Other Additional Past Medical Histor: SARCOIDOSIS OF LUNG Past Surgical History: Angioplasty, , Hysterectomy, Tonsillectomy Additional Past Surgical Histo: bladder sling, cardiac cath Alcohol Use: None Drug Use: Marijuana Social History Narrative: reports last use 2 months ago Adult General Chief Complaint Chief Complaint: ANXIETY/PANIC ATTACK HPI HPI I responded to a CODE BLUE floor with the patient was found pulseless and apneic. She was immediately intubated and before meals was protocols were utilized multiple rounds of be a epi and bicarbonate were administered as well as a dose of calcium. She was apparently admitted for altered mental status. I hypothesize that she had some sort of respiratory event and then went into full cardiac arrest. She is PEA on the monitor upon my initial assessment. Review of Systems Review of Systems A review systems is unable to be obtained secondary the patient's mental status. Current Medications Current Medications Current Medications Medications (Trade) Dose Ordered Sig/Carli Start Time Stop Time Status Last Admin Dose Admin Acetaminophen (Tylenol) 650 mg PRN Q4HRS PRN 07/21/16 19:15 07/22/16 19:14 DC Fentanyl Citrate (Fentanyl 2ml Vial) 50 mcg PRN Q1HR PRN 07/21/16 19:15 07/22/16 19:14 DC 07/22/16 19:08 50 MCG Lorazepam (Ativan) 2 mg 1X ONCE 07/21/16 19:15 07/21/16 19:17 DC 07/21/16 19:19 2 MG Ondansetron HCl (Zofran) 4 mg PRN Q8HRS PRN 07/21/16 19:15 07/22/16 19:14 DC Sodium Chloride (Iv Sodium Chloride 0.9% 500ml Bag) 500 ml @ 0 mls/hr 1X ONCE 07/21/16 17:45 07/21/16 17:46 DC 07/21/16 18:32 500 MLS/HR Allergies Allergies Allergies Coded Allergies Type Severity Reaction Last Updated Verified adhesive Allergy Intermediate rash 09/18/15 Yes metformin Allergy Intermediate rash 04/15/16 Yes Physical Exam Physical Exam Constitutional:Pulseless, in cardiac arrest HENT: Normocephalic, atraumatic, bilateral external ears normal, oropharynx moist, no oral exudates, nose normal. [] Eyes: Non-reactive and fixed, conjunctiva normal, no discharge. [] Neck: Normal range of motion, supple, no stridor. [] Cardiovascular:Pulseless, no murmur [] Lungs & Thorax: Bilateral diminished with crackles throughout [] Abdomen: Bowel sounds normal, soft, no masses, no pulsatile masses. [] Skin: Warm, dry, no erythema, no rash. [] Extremities: No cyanosis, no clubbing, ROM intact, no edema. [] Current Patient Data Vital Signs Vital Signs Date Time Temp Pulse Resp B/P Pulse Ox O2 Delivery O2 Flow Rate FiO2 07/21/16 19:20 84 26 148/67 98 Nasal Cannula 3 07/21/16 17:04 98.6 98.6 Lab Values Laboratory Tests Test 07/21/16 17:30 07/21/16 19:20 White Blood Count 7.2x10^3/uL (4.0-11.0) Red Blood Count 3.73x10^6/uL (3.50-5.40) Hemoglobin 9.0g/dL (12.0-15.5) L Hematocrit 29.1% (36.0-47.0) L Mean Corpuscular Volume 78fL (79-100) L Mean Corpuscular Hemoglobin 24pg (25-35) L Mean Corpuscular Hemoglobin Concent 31g/dL (31-37) Red Cell Distribution Width 20.1% (11.5-14.5) H Platelet Count 288x10^3/uL (140-400) Neutrophils (%) (Auto) 67% (31-73) Lymphocytes (%) (Auto) 17% (24-48) L Monocytes (%) (Auto) 15% (0-9) H Eosinophils (%) (Auto) 0% (0-3) Basophils (%) (Auto) 1% (0-3) Neutrophils # (Auto) 4.9x10^3uL (1.8-7.7) Lymphocytes # (Auto) 1.2x10^3/uL (1.0-4.8) Monocytes # (Auto) 1.1x10^3/uL (0.0-1.1) Eosinophils # (Auto) 0.0x10^3/uL (0.0-0.7) Basophils # (Auto) 0.1x10^3/uL (0.0-0.2) Platelet Estimate Adequate (ADEQUATE) Polychromasia Slight Hypochromasia Slight Poikilocytosis Slight Anisocytosis Mod Tear Drop Cells Few Prothrombin Time 14.9SEC (11.7-14.0) H Prothrombin Time INR 1.2 (0.8-1.1) H Sodium Level 131mmol/L (136-145) L Potassium Level 4.5mmol/L (3.5-5.1) Chloride Level 91mmol/L (98-107) L Carbon Dioxide Level 35mmol/L (21-32) H Anion Gap 5 (6-14) L Blood Urea Nitrogen 50mg/dL (7-20) H Creatinine 1.5mg/dL (0.6-1.0) H Estimated GFR (Cockcroft-Gault) 43.8 BUN/Creatinine Ratio 33 (6-20) H Glucose Level 121mg/dL (70-99) H Calcium Level 9.3mg/dL (8.5-10.1) Total Bilirubin 1.3mg/dL (0.2-1.0) H Aspartate Amino Transferase (AST) 29U/L (15-37) Alanine Aminotransferase (ALT) 21U/L (14-59) Alkaline Phosphatase 169U/L (46-116) H Troponin I Quantitative 0.018ng/mL (0.000-0.055) HZ-Zhw-U-Type Natriuretic Peptide 744pg/mL (0-124) H Total Protein 7.6g/dL (6.4-8.2) Albumin 2.8g/dL (3.4-5.0) L Albumin/Globulin Ratio 0.6 (1.0-1.7) L Salicylates Level < 2.8mg/dL (2.8-20.0) L Salicylate Last Dose Date Unknown Salicylate Last Dose Time Unknown Acetaminophen Level < 2mcg/ml (10-30) L Acetaminophen Last Dose Date Unknown Acetaminophen Last Dose Time Unknown Urine Collection Type U cath Urine Color Candace Urine Clarity Clear Urine pH 5.5 Urine Specific Stanton 1.015 Urine Protein Negativemg/dL (NEG-TRACE) Urine Glucose (UA) Negativemg/dL (NEG) Urine Ketones (Stick) Negativemg/dL (NEG) Urine Blood Negative (NEG) Urine Nitrite Negative (NEG) Urine Bilirubin Small (NEG) Urine Urobilinogen Dipstick 2.0mg/dL (0.2 mg/dL) Urine Leukocyte Esterase Negative (NEG) Urine RBC 0/HPF (0-2) Urine WBC 1-4/HPF (0-4) Urine Squamous Epithelial Cells Few/LPF Urine Amorphous Sediment Present/HPF Urine Bacteria 0/HPF (0-FEW) Urine Hyaline Casts Moderate/HPF Urine Mucus Marked/LPF Urine Yeast Present/HPF Urine Opiates Screen Pos (NEG) Urine Methadone Screen Neg (NEG) Urine Barbiturates Neg (NEG) Urine Phencyclidine Screen Neg (NEG) Urine Amphetamine/Methamphetamine Neg (NEG) Urine Benzodiazepines Screen Pos (NEG) Urine Cocaine Screen Neg (NEG) Urine Cannabinoids Screen Pos (NEG) Urine Ethyl Alcohol Neg (NEG) Laboratory Tests 07/21/16 17:30 Laboratory Tests 07/21/16 17:30 EKG EKG [] Radiology/Procedures Radiology/Procedures [] Course & Med Decision Making Course & Med Decision Making Pertinent Labs and Imaging studies reviewed. (See chart for details) This 56-year-old female presenting to cardiac arrest was given multiple rounds of CPR and ACLS problems or difficulties. Upon my initial assessment she was immediately intubated I hypothesized that she had a respiratory event and so she was bag for 15-20 minutes with final return of spontaneous circulation. I then placed a central venous line in her left femoral vein and began running dopamine. She was just seen for further management. For full details of the ACLS protocols used and the details of the medications and procedures performed please see the accompanying nursing documentation. Approximately one hour of critical care time was used on this patient. Dragon Disclaimer Dragon Disclaimer This electronic medical record was generated, in whole or in part, using a voice recognition dictation system. Critical Care Time Critical care time was 60 minutes exclusive of procedures. Central Line Placement Proc Central Line Indication: Vascular access Consent: The patient provided consent for this procedure. Procedure: The patient was positioned appropriately and the skin over the left femoral vein was prepped and draped in a sterile fashion. Local anesthesia was used. Ultrasound guidance utilized. A large bore needle was used to identify the vein. A guide wire was then inserted into the vein through the needle. A triple lumen catheter was then inserted into the vessel over the guide wire using the Seldinger technique. All ports showed good, free flowing blood return and were flushed with saline solution. The catheter was then securely fastened to the skin with sutures and covered with a sterile dressing. The patient tolerated the procedure well. Complications: none. [] Intubation Procedure Intub Indication: Respiratory failure Consent: Unable to give consent due to emergent nature. Medications Used: see nursing note Procedure: The patient was placed in the appropriate position. Intubation was performed using glidescope and a 7.5 endotracheal tube. ET tube was secured. Initial confirmation of placement included bilateral breath sounds, tube fogging , adequate chest rise, adequate pulse oximetry reading. A chest x-ray to verify correct placement of the tube showed appropriate tube position. The patient tolerated the procedure well. Complications: none. Departure Departure Impression: Primary Impression: Altered mental status Additional Impression: Myoclonic jerking Disposition: 09 ADMITTED INPATIENT Condition: STABLE Problem Qualifiers MOIZ ARRIETA DO Jul 25, 2016 22:19
[2016-07-25 22:36] LABS: BASO # 0.1 x10^3/uL (0.0-0.2); BASO % 1 % (0-3); EOS % 0 % (0-3); HEMATOCRIT 35.8 % (36.0-47.0); HEMOGLOBIN 10.2 g/dL (12.0-15.5); LYMPH # 7.2 x10^3/uL (1.0-4.8); LYMPH % 29 % (24-48); MEAN CORPUSCULAR HEMOGLOBIN 24 pg (25-35); MEAN CORPUSCULAR HGB CONC 29 g/dL (31-37); MEAN CORPUSCULAR VOLUME 83 fL (79-100); MONO % 12 % (0-9); NEUT % 58 % (31-73); PLATELET COUNT 392 x10^3/uL (140-400); RED BLOOD COUNT 4.34 x10^6/uL (3.50-5.40); RED CELL DISTRIBUTION WIDTH 20.6 % (11.5-14.5); WHITE BLOOD COUNT 24.8 x10^3/uL (4.0-11.0)
[2016-07-25 22:47] LABS: CALCIUM 8.7 mg/dL (8.5-10.1); GFR 19.7; POTASSIUM 5.7 mmol/L (3.5-5.1)
[2016-07-25 22:52] LABS: ALBUMIN 2.2 g/dL (3.4-5.0); ALBUMIN/GLOBULIN RATIO 0.5 (1.0-1.7); TOTAL BILIRUBIN 2.7 mg/dL (0.2-1.0); TOTAL PROTEIN 6.8 g/dL (6.4-8.2)
[2016-07-26 00:21] LABS: NUCLEATED RBC 18
[2016-07-26 00:22] LABS: ANISOCYTOSIS MOD; BURR CELLS FEW; CRENATED RBC PRESENT; HYPOCHROMIA SLIGHT; PLT ESTIMATE ADEQUATE (ADEQUATE); POLYCHROMASIA SLIGHT
[2016-07-26 00:23] LABS: SCHISTOCYTES OCC; TEAR DROP CELLS OCC
--- NOTE | 2016-07-26 04:13 | CONS ---
DATE OF CONSULTATION: 07/25/2016 PATIENT'S ROOM: ICU 10. REQUESTING PHYSICIAN: Rocio Lundy M.D. REASON FOR CONSULTATION: Sepsis. HISTORY OF PRESENT ILLNESS: Currently, the patient is intubated and sedated, unable to provide any past medical history, history of present illness, or review of systems, is obtained mainly from the chart and in discussions with nursing staff. HISTORY OF PRESENT ILLNESS: The patient is a 56-year-old -[place] female with history of sarcoidosis, diabetes, AFib with RVR, congestive heart failure with cardiomyopathy, recently treated at [facility] for pleural effusions. She did undergo thoracentesis on 07/09/2016. I did call over and discussed with micro, cultures from the pleural fluid did not have any bacterial, fungal growth at this point. Cytology was negative for any malignancy. She has had previous thoracentesis performed at [facility] as well. She was admitted to [facility] on 07/21/2016 secondary to encephalopathy and acute kidney injury. She does have a history of enterococcal urinary tract infection back in 01/2016 and during this admission, she was on Augmentin. Approximately 10 after 7:00 last evening, mamadou severino was called and it appeared that she had quit breathing. She was found to be pulseless. CPR was started. She was intubated and she was transferred to the Intensive Care Unit. She has now developed temperature of 102.7. White blood cell count was elevated at 16.6, and her renal function has worsened with a creatinine of 2.5, had been 1.5 at the time of admission. Chest x-ray this morning is not officially read; however, she has diffuse infiltrates with right greater than left. She is on multiple pressors, blood pressure now 89/46. On 07/23/2016, she underwent a CT scan of the head that showed no acute intracranial abnormality. Neurology has been following her secondary to encephalopathy. An EEG has been performed and noted to show encephalopathy. PAST MEDICAL HISTORY: Positive for the enterococcal urinary tract infection back in January. She has history of chronic heart failure with a low ejection fraction and has recurring right-sided pleural effusion, personality disorder, marijuana addiction, coronary artery disease, hyperlipidemia, atrial fibrillation with history of rapid ventricular response, COPD, emphysema, chronic respiratory failure requiring oxygen, sarcoidosis, hemorrhoids, hiatal hernia, obesity, constipation, urinary retention, diabetes. REVIEW OF SYSTEMS: Unobtainable. PAST MEDICAL HISTORY: Positive for coronary artery bypass grafting, cholecystectomy, hysterectomy. SOCIAL HISTORY: Positive for smoking, marijuana use, nonadherence. FAMILY HISTORY: Positive for hypothyroidism, diabetes, hypertension, and cancer. CURRENT MEDICATIONS: Include Augmentin, Levophed, ____ dopamine, albuterol, Xanax, Norvasc, aspirin, Lipitor, Pulmicort, Bumex, Plavix, diltiazem, insulin, lisinopril, Flomax. ALLERGIES: METFORMIN AND ADHESIVE. PHYSICAL EXAMINATION: VITAL SIGNS: T-max and current 102.7, pulse of 123, respirations 22, blood pressure 89/46 on Levophed, satting 90% on the ventilator. CONSTITUTIONAL: She is intubated. She is sedated. HEENT: Pupils are minimally reactive. She has normal conjunctivae. NECK: Supple, no JVD. LUNGS: Coarse. HEART: S1, S2. ABDOMEN: Obese, soft. Decreased bowel sounds. Marti is in place with thick-appearing urine. She has a left groin triple lumen catheter. EXTREMITIES: No clubbing or cyanosis. Trace edema. SKIN: Warm to touch without signs of rash. LABORATORY VALUES: White count 16.6, hemoglobin 10, platelets of 469. Neutrophils 85, lymphs are 6, monos 10. Creatinine 2.5, glucose 251, total bilirubin 2.5, AST 60, ALT 32, alk phos was 200. Urine on admission was without signs of infection. IMPRESSION: 1. Sepsis. 2. Acute encephalopathy. 3. Status post code blue on 07/24/2016. 4. Acute respiratory failure, currently intubated. 5. Acute kidney injury. 6. Cardiomyopathy with congestive heart failure. 7. Nonadherence. 8. Substance abuse. 9. Atrial fibrillation with rapid ventricular response. 10. Diabetes. 11. History of sarcoidosis. 12. ____ residuals. RECOMMENDATIONS: We will discontinue the Augmentin. We will repeat the cultures, blood and sputum ____. We will add Zosyn and cover hospital-acquired also add Zyvox, given her potential risk for worsening renal failure as well as risk for resistant bacteria given previous enterococcus in the past and multiple antibiotic exposures, add micafungin, given her diabetes and antibiotic exposure also with her encephalopathy at the time of presentation, we will add acyclovir. She may need an LP if the family desires aggressive measures. Per nursing, there was a planned meeting with physicians and family to discuss goals of care. For now, we will add rectal Tylenol, obtain laboratory values in the morning, and we will await family decisions. Again, I have discussed with Jessi bowden regarding the cultures of the pleural fluid. Thank you for allowing me to participate in the patient's care. If you have any questions, please do not hesitate to contact me. I spent 35 minutes critical care time. TIMBO SALAS MD DR: LEON/lew JOB#: [id number] / [id number]
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
== END 2016-07-25 23:35 | disposition expired | DRG 871 ==
LOC: ER 17:04 → 6 SOUTH 19:20 → 1 WEST ICU 07-24 21:00
PROVIDERS: ADMIT Family Medicine; ATTEND Family Medicine
PROC: 5A1945Z Respiratory Ventilation, 24-96 Consecutive Hours (ICD-10-PCS; principal; 2016-07-24)
PROC: 0BH17EZ Insertion of Endotracheal Airway into Trachea, Via Natural or Artificial Opening (ICD-10-PCS; 2016-07-24)
DX: A41.9 Sepsis, unspecified organism (principal); G92 Toxic encephalopathy; I50.43 Acute on chronic combined systolic (congestive) and diastolic (congestive) heart failure; J96.21 Acute and chronic respiratory failure with hypoxia; R65.21 Severe sepsis with septic shock; N17.9 Acute kidney failure, unspecified; I42.0 Dilated cardiomyopathy; E87.2 Acidosis; I13.0 Hypertensive heart and chronic kidney disease with heart failure and stage 1 through stage 4 chronic kidney disease, or unspecified chronic kidney disease; D86.0 Sarcoidosis of lung; E11.22 Type 2 diabetes mellitus with diabetic chronic kidney disease; E11.649 Type 2 diabetes mellitus with hypoglycemia without coma; E11.65 Type 2 diabetes mellitus with hyperglycemia; E66.9 Obesity, unspecified; E78.5 Hyperlipidemia, unspecified; E87.5 Hyperkalemia; F41.0 Panic disorder [episodic paroxysmal anxiety]; F60.9 Personality disorder, unspecified; G25.3 Myoclonus; I25.10 Atherosclerotic heart disease of native coronary artery without angina pectoris; I25.5 Ischemic cardiomyopathy; I46.9 Cardiac arrest, cause unspecified; I48.2 Chronic atrial fibrillation; J44.9 Chronic obstructive pulmonary disease, unspecified; J45.909 Unspecified asthma, uncomplicated; K59.00 Constipation, unspecified; M54.5 Low back pain; D64.9 Anemia, unspecified; K21.9 Gastro-esophageal reflux disease without esophagitis; N18.2 Chronic kidney disease, stage 2 (mild); F12.20 Cannabis dependence, uncomplicated; F32.9 Major depressive disorder, single episode, unspecified; Z60.2 Problems related to living alone; R31.9 Hematuria, unspecified; R33.9 Retention of urine, unspecified; Z79.4 Long term (current) use of insulin; Z82.49 Family history of ischemic heart disease and other diseases of the circulatory system; Z91.19 Patient's noncompliance with other medical treatment and regimen; Z83.3 Family history of diabetes mellitus; Z95.1 Presence of aortocoronary bypass graft; Z87.01 Personal history of pneumonia (recurrent); Z90.710 Acquired absence of both cervix and uterus
CPT/HCPCS: 36415; 36600; 70450; 71010; 74000; 76770; 80048; 80053; 81001; 82550; 82607; 82728; 82805; 82947; 83540; 83550; 83605; 83735; 83874; 83880; 84443; 84484; 85007; 85027; 85610; 85651; 87040; 87070; 87086; 87205; 87641; 87804; 93005; 94002; 94003; 94640; 94760; 95816; 96361; 96374; G0481; G6038; J0133; J0171; J1265; J1756; J1815; J1940; J2020; J2060; J2248; J2250; J2543; J3010; J3490; J7030; J7040; J7050; J7120; J7620; Q0163; 80196; 99285-25